=== PATIENT | female | born 1995 | race Caucasian/White ===

== ENCOUNTER → 2016-10-27 | Outpatient (CLI) | payer OTHER ==
--- NOTE | 2016-10-28 09:47 | EEG ---
DATE OF SERVICE: 10/27/2016 INDICATIONS FOR EXAMINATION: This patient is a 21-year-old female with history of seizure disorder since age 15. Patient with breakthrough seizure yesterday evening. Patient also with history of bipolar depression and fibromyalgia. AGE: 21Y EEG FINDINGS: A routine 21-channel, awake digital EEG recording was accomplished utilizing the 10 to 20 international system with bipolar and referential montages. The background activity in the most alert resting state consists of a low to medium amplitude, fairly well-developed and well-sustained 5 to 6 Hz activity over the posterior head regions. This posterior rhythm attenuates to eye opening. There is a small amount of low amplitude 18 to 20 Hz beta activity seen maximally over the anterior head regions. Muscle and movement artifact was observed on a few occasions during the tracing. Hyperventilation failed to add any additional information to the tracing. No further activation was noted. Photic stimulation at flash frequencies of 2 to 30 Hz produced a good symmetrical occipital driving response. No epileptiform discharges were seen. IMPRESSION: This EEG is moderately abnormal in a diffuse fashion due to slowing of the EEG background. The EEG failed to reveal any focal, lateralized or epileptiform abnormalities. Clinical correlation is recommended.
== END | disposition home or self-care (01) ==
LOC: NEUROMAIN 12:52
PROVIDERS: ATTEND Family Medicine
DX: R94.01 Abnormal electroencephalogram [EEG] (principal); G40.909 Epilepsy, unspecified, not intractable, without status epilepticus; F31.9 Bipolar disorder, unspecified; M79.7 Fibromyalgia
CPT/HCPCS: 95816

== ENCOUNTER → 2017-03-03 | Outpatient (CLI) | payer OTHER ==
[~2017-03-03] MED LIST: ATROPINE SULFATE 0.1 MG/ML 10ML SYRINGE ONE; DOBUTamine DRIP for NUC MED 500 MG in DEXTROSE/WATER 1 250ML.BAG IV ONE; METOPROLOL TARTRATE 5 MG/5 ML VIAL IVP ONE
--- NOTE | 2017-03-03 10:27 | ECHOS ---
DATE OF SERVICE: 03/03/2017 AGE: 21Y SEX: F HT: 61" WT: 223 lbs. Protocol Travis: Others: Dobutamine Stress Echo Stage: 4 Dur. of Exercise: 12:40 *Heart Rate Blood Pressure *Rest: 69 Rest: 166/55 * *Max. Achieved: 160 Maximum BP: 197/54 85% PMHR: 167 100% PMHR: 197 *METS: - INDICATIONS: Chest pain. MEDICATIONS: - Mrs. Key is a 21-year-old female being evaluated for symptoms of chest pain and shortness of breath. Baseline EKG showed sinus rhythm with normal NH interval and QRS duration. Blood pressure at rest is 166/55, pulse rate of 69. A standard dose of dobutamine was initiated and titrated to 40 mcg; 1 mg of Atropine was given. Patient achieved a maximum heart rate of 160, which is about 80% of the predicted heart rate. Patient did not experience any chest pain. ECHO DATA: Baseline echo images show normal wall motion and thickening. Exercise echo images showed augmentation of the wall motion and thickening in all the segments. FINAL IMPRESSION: 1. Negative stress test at about 80% of the predicted heart rate. This is a dobutamine stress echo. 2. Negative dobutamine stress at 80% of the predicted heart rate. The study is suboptimal in that patient did not achieve 85% of precipitate heart rate. 3. Patient did not experience any chest pain.
== END ==
LOC: RADNMMAIN 08:33
PROVIDERS: ATTEND Family Medicine
DX: R07.9 Chest pain, unspecified (principal)
CPT/HCPCS: 93017; 93350; J1250

== ENCOUNTER 2017-09-02 19:38 | Emergency (ER) | payer OTHER ==
[2017-09-02 20:01] VITALS: RESP 18
[2017-09-02] MEDS ORDERED: SODIUM CHLORIDE 0.9% 1,000 ML IV STA (20:15)
[2017-09-02] MEDS ORDERED: ONDANSETRON 4 MG/2 ML VIAL IVP STA (20:15)
[2017-09-02] MEDS ORDERED: HYDROmorphone 1 MG/ML 1 ML SYRINGE IVP STA (20:15)
[2017-09-02 20:25] LABS: Basophils % (A) 0 %; CH 27.4; CHCM 32.5; Eosinophils # (A) 0.1 k/uL (0-0.7); Eosinophils % (A) 1 %; HCT 36.5 % (34.0-46.0); HDW 2.52; HGB 12.1 gm/dL (11.4-16.0); Luc # (Auto) 0.11; Luc % (Auto) 1; Lymphocytes # (A) 2.1 k/uL (1.0-4.8); Lymphocytes % (A) 21 %; MCHC 33.1 g/dL (31.0-37.0); MCV 84.7 fL (80.0-100.0); Mean Platelet Volume 7.2; Monocytes # (A) 0.4 k/uL (0-1.0); Monocytes % (A) 4 %; Neutrophils # (A) 7.1 k/uL (1.3-7.7); Neutrophils % (A) 72 %; RDW 14.9 % (11.5-15.5); WBC 9.8 k/uL (3.8-10.6)
[2017-09-02] MEDS ORDERED: HYDROmorphone 0.5 MG/0.5 ML SYRINGE IVP STA (20:27)
--- NOTE | 2017-09-02 20:31 | ED ---
General Adult HPI - General Chief complaint: Abdominal Pain Stated complaint: abdominal pain Time Seen by Provider: 09/02/17 19:40 Source: patient, EMS, RN notes reviewed Mode of arrival: EMS Limitations: no limitations - History of Present Illness Initial comments: 22-year-old female presents emergency department with a chief complaint of abdominal pain that radiates to the back. She's been having nausea vomiting abdominal pain and dizziness for the past week or so. She does have a history of pancreatitis is concerned that it may have flared up. The patient states that she is not having any changes in bowel or bladder habits. She was concerned due to her continued pain and vomiting so she thought that she should be evaluated.Patient denies any recent fever, chills, shortness of breath, chest pain, back pain, numbness or tingling, dysuria or hematuria, constipation or diarrhea, headaches or visual changes, or any other current symptoms. - Related Data Home Medications Medication Instructions Recorded Confirmed Zolpidem [Ambien] 10 mg PO HS PRN 06/08/14 09/02/17 Ondansetron [Zofran] 4 mg PO Q8HR PRN 09/22/15 09/02/17 Albuterol Sulfate [Proair Hfa] 2 puff INHALATION RT-Q6H PRN 11/09/15 09/02/17 Cyproheptadine HCl [Periactin] 4 mg PO DAILY 02/29/16 09/02/17 Dicyclomine HCl [Bentyl] 20 mg PO QID 02/29/16 09/02/17 Ondansetron [Zofran ODT] 8 mg PO BID PRN 02/29/16 09/02/17 Naproxen 500 mg PO Q12H PRN 09/02/17 09/02/17 Pregabalin [Lyrica] 75 mg PO TID 09/02/17 09/02/17 tiZANidine [Zanaflex] 3 mg PO Q8HR PRN 09/02/17 09/02/17 Allergies Allergy/AdvReac Type Severity Reaction Status Date / Time Pertussis Vaccines Allergy Rash/Hives Verified 09/02/17 20:01 Review of Systems ROS Statement: Those systems with pertinent positive or pertinent negative responses have been documented in the HPI. ROS Other: All systems not noted in ROS Statement are negative. Past Medical History Past Medical History: Eye Disorder, Fibromyalgia, GERD/Reflux, Osteoarthritis ( OA), Pneumonia, Seizure Disorder Additional Past Medical History / Comment(s): irregular menstrual cycles, epilepsy , insomnia, restless leg syndrome, chronic knee and back pain, migraines, resolved pneumonia in 2014 History of Any Multi-Drug Resistant Organisms: None Reported Past Surgical History: Cholecystectomy, Orthopedic Surgery Additional Past Surgical History / Comment(s): SEVERAL SCOPES ON RT KNEE, EGD Past Anesthesia/Blood Transfusion Reactions: No Reported Reaction Past Psychological History: Bipolar, Depression Smoking Status: Current some day smoker Past Alcohol Use History: Rare Past Drug Use History: None Reported - Past Family History Mother Family Medical History: Hypertension Father History Unknown: Yes Family Medical History: Coronary Artery Disease (CAD) Additional Family Medical History / Comment(s): PT STATES FATHER WHEN SHE WAS VERY LITTLE- DOES NOT KNOW WHY HE Sister(s) Family Medical History: No Reported History General Exam - General Exam Comments Initial Comments: General: The patient is awake and alert, in no distress, and does not appear acutely ill. Eye: Pupils are equal, round and reactive to light, extra-ocular movements are intact; there is normal conjunctiva bilaterally. No signs of icterus. Ears, nose, mouth and throat: There are moist mucous membranes and no oral lesions. Neck: The neck is supple, there is no tenderness. Cardiovascular: There is a regular rate and rhythm. No murmur, rub or gallop is appreciated. Respiratory: Lungs are clear to auscultation, respirations are non-labored, breath sounds are equal. No wheezes, stridor, rales, or rhonchi. Gastrointestinal: Soft, non-distended, mild epigastric tenderness of the abdomen without masses or organomegaly noted. There is no rebound or guarding present. No CVA tenderness. Bowel sounds are unremarkable. Back: There is no tenderness to palpation in the midline. There is no obvious deformity. No rashes noted. Musculoskeletal: Normal ROM, no tenderness, There is no pedal edema. There is no calf tenderness or swelling. Sensation intact. Pulses equal bilaterally 2+. Neurological: CN II-XII intact, There are no obvious motor or sensory deficits. Coordination appears grossly intact. Speech is normal. Skin: Skin is warm and dry and no rashes or lesions are noted. Psychiatric: Cooperative, appropriate mood & affect, normal judgment. Limitations: no limitations Course Vital Signs 09/02/17 09/02/17 19:44 20:43 Temperature 98.5 F Pulse Rate 74 75 Respiratory 18 18 Rate Blood Pressure 115/59 104/55 O2 Sat by Pulse 97 97 Oximetry Medical Decision Making - Medical Decision Making 22-year-old female presents to emergency Department chief complaint of epigastric abdominal pain. Patient does have a history of pancreatitis. This time patient's lab work and imaging has been reviewed. This tenderness does not appear in acute emergent cause of patient's pain. We did discuss other etiologies to follow-up return parameters all questions. Patient stated that she understood and she is in agreement this plan. All questions have been answered. She'll be discharged. - Lab Data Result diagrams: 09/02/17 20:12 09/02/17 20:12 Lab Results 09/02/17 09/02/17 09/02/17 Range/Units 20:12 20:12 20:25 WBC 9.8 (3.8-10.6) k/uL RBC 4.30 (3.80-5.40) m/uL Hgb 12.1 (11.4-16.0) gm/dL Hct 36.5 (34.0-46.0) % MCV 84.7 (80.0-100.0) fL MCH 28.0 (25.0-35.0) pg MCHC 33.1 (31.0-37.0) g/dL RDW 14.9 (11.5-15.5) % Plt Count 343 (150-450) k/uL Neutrophils % 72 % Lymphocytes % 21 % Monocytes % 4 % Eosinophils % 1 % Basophils % 0 % Neutrophils # 7.1 (1.3-7.7) k/uL Lymphocytes # 2.1 (1.0-4.8) k/uL Monocytes # 0.4 (0-1.0) k/uL Eosinophils # 0.1 (0-0.7) k/uL Basophils # 0.0 (0-0.2) k/uL Sodium 138 (137-145) mmol/L Potassium 3.9 (3.5-5.1) mmol/L Chloride 108 H (98-107) mmol/L Carbon Dioxide 19 L (22-30) mmol/L Anion Gap 11 mmol/L BUN 14 (7-17) mg/dL Creatinine 0.70 (0.52-1.04) mg/dL Est GFR (MDRD) Af Amer >60 (>60 ml/min/1.73 sqM) Est GFR (MDRD) Non-Af >60 (>60 ml/min/1.73 sqM) Glucose 121 H (74-99) mg/dL Calcium 9.0 (8.4-10.2) mg/dL Total Bilirubin 0.4 (0.2-1.3) mg/dL AST 22 (14-36) U/L ALT 27 (9-52) U/L Alkaline Phosphatase 81 (38-126) U/L Total Protein 6.8 (6.3-8.2) g/dL Albumin 3.9 (3.5-5.0) g/dL Amylase <30 L (30-110) U/L Lipase 39 (23-300) U/L Urine Color Urine Appearance (Clear) Urine pH (5.0-8.0) Ur Specific [place] (1.001-1.035) Urine Protein (Negative) Urine Glucose (UA) (Negative) Urine Ketones (Negative) Urine Blood (Negative) Urine Nitrite (Negative) Urine Bilirubin (Negative) Urine Urobilinogen (<2.0) mg/dL Ur Leukocyte Esterase (Negative) Urine HCG, Qual Not Detected (Not Detectd) 09/02/17 Range/Units 20:25 WBC (3.8-10.6) k/uL RBC (3.80-5.40) m/uL Hgb (11.4-16.0) gm/dL Hct (34.0-46.0) % MCV (80.0-100.0) fL MCH (25.0-35.0) pg MCHC (31.0-37.0) g/dL RDW (11.5-15.5) % Plt Count (150-450) k/uL Neutrophils % % Lymphocytes % % Monocytes % % Eosinophils % % Basophils % % Neutrophils # (1.3-7.7) k/uL Lymphocytes # (1.0-4.8) k/uL Monocytes # (0-1.0) k/uL Eosinophils # (0-0.7) k/uL Basophils # (0-0.2) k/uL Sodium (137-145) mmol/L Potassium (3.5-5.1) mmol/L Chloride (98-107) mmol/L Carbon Dioxide (22-30) mmol/L Anion Gap mmol/L BUN (7-17) mg/dL Creatinine (0.52-1.04) mg/dL Est GFR (MDRD) Af Amer (>60 ml/min/1.73 sqM) Est GFR (MDRD) Non-Af (>60 ml/min/1.73 sqM) Glucose (74-99) mg/dL Calcium (8.4-10.2) mg/dL Total Bilirubin (0.2-1.3) mg/dL AST (14-36) U/L ALT (9-52) U/L Alkaline Phosphatase (38-126) U/L Total Protein (6.3-8.2) g/dL Albumin (3.5-5.0) g/dL Amylase (30-110) U/L Lipase (23-300) U/L Urine Color Yellow Urine Appearance Clear (Clear) Urine pH 5.5 (5.0-8.0) Ur Specific [place] 1.023 (1.001-1.035) Urine Protein Trace H (Negative) Urine Glucose (UA) Negative (Negative) Urine Ketones Negative (Negative) Urine Blood Negative (Negative) Urine Nitrite Negative (Negative) Urine Bilirubin Negative (Negative) Urine Urobilinogen <2.0 (<2.0) mg/dL Ur Leukocyte Esterase Negative (Negative) Urine HCG, Qual (Not Detectd) - Radiology Data Radiology results: report reviewed, image reviewed Disposition Clinical Impression: Abdominal pain Disposition: HOME SELF-CARE Condition: Stable Instructions: Abdominal Pain (ED) Additional Instructions: Please use medication as discussed. Please follow up with family doctor if symptoms have not improved over the next two days. Please return to the emergency room if your symptoms increase or worsen or for any other concerns. Referrals: Chio Lopez MD [Primary Care Provider] - 1-2 days Time of Disposition: 22:31
[2017-09-02 20:35] LABS: Appearance,Urine Clear (Clear); Bilirubin,Urine Negative (Negative); Glucose,Urine (UA) Negative (Negative); Ketones,Urine Negative (Negative); Leukocyte Esterase,Urine Negative (Negative); Nitrite,Urine Negative (Negative); PH, Urine 5.5 (5.0-8.0); Protein,Urine Trace (Negative); Specific Gravity,Urine 1.023 (1.001-1.035); UA Billing (MACRO vs. MICRO) CHEM; Urobilinogen,Urine <2.0 mg/dL (<2.0)
[2017-09-02 20:36] LABS: ALT 27 U/L (9-52); AST 22 U/L (14-36); Alkaline Phosphatase 81 U/L (38-126); Amylase <30 U/L (30-110); Anion Gap 11 mmol/L; Blood Urea Nitrogen 14 mg/dL (7-17); Carbon Dioxide 19 mmol/L (22-30); Chloride 108 mmol/L (98-107); Glucose 121 mg/dL (74-99); Non-African American GFR(MDRD) >60 (>60 ml/min/1.73 sqM); Potassium 3.9 mmol/L (3.5-5.1); Sodium 138 mmol/L (137-145); Total Bilirubin 0.4 mg/dL (0.2-1.3); Total Protein 6.8 g/dL (6.3-8.2)
[2017-09-02] MEDS ORDERED: RX INFO: IV CONTRAST WAS GIVEN 1 EACH MISC MISCELLANE PRN (21:13)
--- NOTE | 2017-09-02 21:17 | XR ---
EXAMINATION TYPE: XR abdomen 2V DATE OF EXAM: 09/02/2017 9:03 PM CLINICAL HISTORY: Nausea and vomiting TECHNIQUE: Upright and supine abdominal radiographs were obtained. COMPARISON: None. FINDINGS: Scattered gas is seen in non-distended small bowel loops. Gas and fecal material is seen in non-distended colon. There is no visceromegaly, pneumoperitoneum, or abnormal calcification apprecia kenneth. The lung bases are clear and the osseous structures are intact. IMPRESSION: Nonobstructive bowel gas pattern.
--- NOTE | 2017-09-02 22:00 | CT ---
EXAMINATION TYPE: CT abdomen pelvis w con DATE OF EXAM: 09/02/2017 HISTORY: Dizziness/abdominal pain mid abdomen CT DLP: 1887.80mGycm Automated Exposure Control for Dose Reduction was Utilized. CONTRAST: CT scan of the abdomen and pelvis is performed with IV Contrast, patient injected with 100 mL of Omni paque 300. Lack of oral contrast limits evaluation of the bowel. COMPARISON: 02/29/2016 FINDINGS: LUNG BASES: Minimal dependent bibasilar subsegmental atelectasis is seen. LIVER/GB: No significant abnormality is appreciated. Cholecystectomy clips reside within the gallblad karen fossa. PANCREAS: No significant abnormality is seen. No ductal dilatation. SPLEEN: No significant abnormality is seen. No evidence of splenomegaly. ADRENALS: No significant abnormality is seen. No nodules are seen. KIDNEYS: No significant abnormality is seen. No hydronephrosis. BOWEL: What appears to be the appendix is air-filled and within normal limits of size. No secondary s igns of appendicitis are seen. No right lower quadrant fat stranding, localized fluid or lymph nodes are noted. No thickening of the terminal ileum. UTERUS/ADNEXA: 2 adjacent fluid attenuated right adnexal cyst measuring 3.2 cm and 2.8 cm are seen. S cant amount of adjacent paraovarian free fluid is noted. Low attenuation of the central endometrium l ikely relates to the phase of menses. Left ovary is not visualized.. LYMPH NODES: No greater than 1cm abdominal or pelvic lymph nodes are appreciated. OSSEOUS STRUCTURES: No significant abnormality is seen. IMPRESSION: 1. No evidence of acute appendicitis. 2. Right adnexal cystic lesions, probable simple ovarian cysts. If there is further clinical concern or right lower quadrant pain pelvic ultrasound could be performed for further evaluation.
[2017-09-02 22:54] VITALS: BP 101/57; PULSE 100; TEMP 98
== END 2017-09-02 22:54 | disposition home or self-care (01) ==
LOC: EC 19:38
DX: R10.13 Epigastric pain (principal); R11.2 Nausea with vomiting, unspecified; R42 Dizziness and giddiness; M79.7 Fibromyalgia; K21.9 Gastro-esophageal reflux disease without esophagitis; M19.90 Unspecified osteoarthritis, unspecified site; G40.909 Epilepsy, unspecified, not intractable, without status epilepticus; F31.9 Bipolar disorder, unspecified; F17.200 Nicotine dependence, unspecified, uncomplicated; Z79.1 Long term (current) use of non-steroidal anti-inflammatories (NSAID); Z79.899 Other long term (current) drug therapy; Z88.7 Allergy status to serum and vaccine; Z90.49 Acquired absence of other specified parts of digestive tract
CPT/HCPCS: 36415; 80053; 82150; 83690; 85025; 81003; 81025; 74020; 74177; 99285; 96374; 96375; 96361; J2405; Q9967; J1170

== ENCOUNTER 2019-06-18 17:01 | Emergency (ER) | payer OTHER ==
[2019-06-18 17:13] VITALS: RESP 18
[2019-06-18] MEDS ORDERED: KETOROLAC 30 MG/ML 1 ML VIAL IVP STA (17:21)
[2019-06-18] MEDS ORDERED: SODIUM CHLORIDE 0.9% 1,000 ML IV STA (17:21)
[2019-06-18] MEDS ORDERED: ONDANSETRON 4 MG/2 ML VIAL IVP STA (17:21)
--- NOTE | 2019-06-18 17:29 | ED ---
General Adult HPI - General Chief complaint: Abdominal Pain Stated complaint: abd pain, nause Time Seen by Provider: 06/18/19 17:02 Source: patient, EMS, RN notes reviewed Mode of arrival: EMS Limitations: no limitations - History of Present Illness Initial comments: 23-year-old female with a past medical history of fibromyalgia, GERD epilepsy, insomnia, pancreatitis 8 episodes presents to the emergency room for a chief complaint of epigastric pain. States this started around 9 AM this morning. States she has been nauseous but has not vomited. States this feels exactly like the greatest in the past. Patient has a history of cholecystectomy. Denies any lower abdominal pain. Denies any diarrhea. Patient is passing flatus normally. Denies any alleviating or aggravating factors. Patient has no other complaints at this time including shortness of breath, chest pain, vomiting, headache, or visual changes. - Related Data Home Medications Medication Instructions Recorded Confirmed Cyproheptadine HCl [Periactin] 4 mg PO DAILY PRN 02/29/16 06/18/19 Naproxen 500 mg PO BID PRN 09/02/17 06/18/19 Gabapentin 1,200 mg PO TID 09/27/17 06/18/19 ARIPiprazole [Abilify] 10 mg PO HS 06/18/19 06/18/19 Albuterol Inhaler [Ventolin Hfa 1 - 2 puff INHALATION RT-Q6H PRN 06/18/19 06/18/19 Inhaler] Baclofen 10 mg PO TID 06/18/19 06/18/19 Hyoscyamine Sulfate [Levsin] 0.125 mg PO DAILY PRN 06/18/19 06/18/19 Omeprazole 20 mg PO DAILY 06/18/19 06/18/19 Ondansetron HCl [Zofran] 4 mg PO Q8H PRN 06/18/19 06/18/19 Sertraline HCl [Zoloft] 25 mg PO DAILY 06/18/19 06/18/19 lamoTRIgine [LaMICtal] 200 mg PO DAILY 06/18/19 06/18/19 Allergies Allergy/AdvReac Type Severity Reaction Status Date / Time Pertussis Vaccines Allergy Rash/Hives Verified 09/27/17 18:20 Review of Systems ROS Statement: Those systems with pertinent positive or pertinent negative responses have been documented in the HPI. ROS Other: All systems not noted in ROS Statement are negative. Past Medical History Past Medical History: Eye Disorder, Fibromyalgia, GERD/Reflux, Osteoarthritis (OA), Pneumonia, Seizure Disorder Additional Past Medical History / Comment(s): irregular menstrual cycles, epilepsy , insomnia, restless leg syndrome, chronic knee and back pain, migraines, resolved pneumonia in 2014 History of Any Multi-Drug Resistant Organisms: None Reported Past Surgical History: Cholecystectomy, Orthopedic Surgery Additional Past Surgical History / Comment(s): SEVERAL SCOPES ON RT KNEE, EGD 09/21/15 Past Anesthesia/Blood Transfusion Reactions: No Reported Reaction Past Psychological History: Bipolar, Depression Smoking Status: Current some day smoker Past Alcohol Use History: Occasional Past Drug Use History: None Reported - Past Family History Mother Family Medical History: Hypertension Father History Unknown: Yes Family Medical History: Coronary Artery Disease (CAD) Additional Family Medical History / Comment(s): PT STATES FATHER WHEN SHE WAS VERY LITTLE- DOES NOT KNOW WHY HE Sister(s) Family Medical History: No Reported History General Exam Limitations: no limitations Course Vital Signs 06/18/19 06/18/19 17:09 19:21 Temperature 98.0 F Pulse Rate 105 H 110 H Respiratory 18 18 Rate Blood Pressure 139/95 135/90 O2 Sat by Pulse 99 98 Oximetry Medical Decision Making - Medical Decision Making History obtained from patient. Physical exam is documented and pertinent for epigastric tenderness without guarding or rebound and positive bowel sounds in all 4 quadrants. Vitals are stable however recorded vitals do represent tachycardia. However when I'm in the room patient's heart rate is anywhere between 80 and 85. CBC and CMP are unremarkable. Urine is negative for infection or hCG. XR KUB shows no acute radiographic process. No pneumoperitoneum appreciated. Given normal labs, no lower abdominal pain, and epigastric tenderness symptoms are consistent with acute gastritis. Patient does have a history of gastritis and frequently takes naproxen for fibromyalgia. Patient does take omeprazole. However no evidence for pneumoperitoneum so at this point patient can follow up outpatient. We did improve her pain here in the emergency department. She has an appointment with GI on the but will call to try to make this earlier. She'll return if she has any worsening s ymptoms including lower abdominal pain, fevers, or any worsening of the upper abdominal pain. - Lab Data Result diagrams: 06/18/19 17:40 06/18/19 17:40 Lab Results 06/18/19 06/18/19 06/18/19 Range/Units 17:20 17:20 17:40 WBC (3.8-10.6) k/uL RBC (3.80-5.40) m/uL Hgb (11.4-16.0) gm/dL Hct (34.0-46.0) % MCV (80.0-100.0) fL MCH (25.0-35.0) pg MCHC (31.0-37.0) g/dL RDW (11.5-15.5) % Plt Count (150-450) k/uL Neutrophils % % Lymphocytes % % Monocytes % % Eosinophils % % Basophils % % Neutrophils # (1.3-7.7) k/uL Lymphocytes # (1.0-4.8) k/uL Monocytes # (0-1.0) k/uL Eosinophils # (0-0.7) k/uL Basophils # (0-0.2) k/uL Sodium 140 (137-145) mmol/L Potassium 4.5 (3.5-5.1) mmol/L Chloride 105 (98-107) mmol/L Carbon Dioxide 25 (22-30) mmol/L Anion Gap 10 mmol/L BUN 12 (7-17) mg/dL Creatinine 0.78 (0.52-1.04) mg/dL Est GFR (CKD-EPI)AfAm >90 (>60 ml/min/1.73 sqM) Est GFR (CKD-EPI)NonAf >90 (>60 ml/min/1.73 sqM) Glucose 88 (74-99) mg/dL Calcium 9.5 (8.4-10.2) mg/dL Total Bilirubin 0.3 (0.2-1.3) mg/dL AST 21 (14-36) U/L ALT 18 (9-52) U/L Alkaline Phosphatase 99 (38-126) U/L Total Protein 7.4 (6.3-8.2) g/dL Albumin 4.2 (3.5-5.0) g/dL Amylase 46 (30-110) U/L Lipase 43 (23-300) U/L Urine Color Yellow Urine Appearance Clear (Clear) Urine pH 6.5 (5.0-8.0) Ur Specific [place] 1.027 (1.001-1.035) Urine Protein Trace H (Negative) Urine Glucose (UA) Negative (Negative) Urine Ketones Negative (Negative) Urine Blood Negative (Negative) Urine Nitrite Negative (Negative) Urine Bilirubin Negative (Negative) Urine Urobilinogen 3.0 (<2.0) mg/dL Ur Leukocyte Esterase Negative (Negative) Urine HCG, Qual Not Detected (Not Detectd) 06/18/19 Range/Units 17:40 WBC 10.0 (3.8-10.6) k/uL RBC 4.31 (3.80-5.40) m/uL Hgb 11.9 (11.4-16.0) gm/dL Hct 36.0 (34.0-46.0) % MCV 83.4 (80.0-100.0) fL MCH 27.6 (25.0-35.0) pg MCHC 33.1 (31.0-37.0) g/dL RDW 15.0 (11.5-15.5) % Plt Count 368 (150-450) k/uL Neutrophils % 72 % Lymphocytes % 22 % Monocytes % 4 % Eosinophils % 1 % Basophils % 0 % Neutrophils # 7.2 (1.3-7.7) k/uL Lymphocytes # 2.2 (1.0-4.8) k/uL Monocytes # 0.4 (0-1.0) k/uL Eosinophils # 0.1 (0-0.7) k/uL Basophils # 0.0 (0-0.2) k/uL Sodium (137-145) mmol/L Potassium (3.5-5.1) mmol/L Chloride (98-107) mmol/L Carbon Dioxide (22-30) mmol/L Anion Gap mmol/L BUN (7-17) mg/dL Creatinine (0.52-1.04) mg/dL Est GFR (CKD-EPI)AfAm (>60 ml/min/1.73 sqM) Est GFR (CKD-EPI)NonAf (>60 ml/min/1.73 sqM) Glucose (74-99) mg/dL Calcium (8.4-10.2) mg/dL Total Bilirubin (0.2-1.3) mg/dL AST (14-36) U/L ALT (9-52) U/L Alkaline Phosphatase (38-126) U/L Total Protein (6.3-8.2) g/dL Albumin (3.5-5.0) g/dL Amylase (30-110) U/L Lipase (23-300) U/L Urine Color Urine Appearance (Clear) Urine pH (5.0-8.0) Ur Specific [place] (1.001-1.035) Urine Protein (Negative) Urine Glucose (UA) (Negative) Urine Ketones (Negative) Urine Blood (Negative) Urine Nitrite (Negative) Urine Bilirubin (Negative) Urine Urobilinogen (<2.0) mg/dL Ur Leukocyte Esterase (Negative) Urine HCG, Qual (Not Detectd) Disposition Clinical Impression: Acute gastritis Disposition: HOME SELF-CARE Condition: Good Instructions (If sedation given, give patient instructions): Gastritis (ED) Additional Instructions: Continue to take your omeprazole. Do not take NSAIDs until your GI follow-up. Follow up with GI in 1-2 days. Return if you have any worsening symptoms. Is patient prescribed a controlled substance at d/c from ED?: No Referrals: Nikia May MD [Primary Care Provider] - 1-2 days Claudia Almazan MD [STAFF PHYSICIAN] - 1-2 days Time of Disposition: 19:44
[2019-06-18 17:33] LABS: Appearance,Urine Clear (Clear); Bilirubin,Urine Negative (Negative); Blood,Urine Negative (Negative); Color,Urine Yellow; Glucose,Urine (UA) Negative (Negative); Ketones,Urine Negative (Negative); Leukocyte Esterase,Urine Negative (Negative); Nitrite,Urine Negative (Negative); PH, Urine 6.5 (5.0-8.0); Protein,Urine Trace (Negative); Specific Gravity,Urine 1.027 (1.001-1.035)
[2019-06-18 17:53] LABS: Basophils % (A) 0 %; Eosinophils # (A) 0.1 k/uL (0-0.7); Eosinophils % (A) 1 %; HGB 11.9 gm/dL (11.4-16.0); Lymphocytes # (A) 2.2 k/uL (1.0-4.8); Lymphocytes % (A) 22 %; MCH 27.6 pg (25.0-35.0); MCHC 33.1 g/dL (31.0-37.0); MCV 83.4 fL (80.0-100.0); Mean Platelet Volume 6.9; Monocytes # (A) 0.4 k/uL (0-1.0); Monocytes % (A) 4 %; Neutrophils # (A) 7.2 k/uL (1.3-7.7); Neutrophils % (A) 72 %; Platelet Count 368 k/uL (150-450); RBC 4.31 m/uL (3.80-5.40)
[2019-06-18 18:28] LABS: ALT 18 U/L (9-52); AST 21 U/L (14-36); African American GFR (CKD) >90 (>60 ml/min/1.73 sqM); Albumin 4.2 g/dL (3.5-5.0); Alkaline Phosphatase 99 U/L (38-126); Amylase 46 U/L (30-110); Anion Gap 10 mmol/L; Blood Urea Nitrogen 12 mg/dL (7-17); Calcium 9.5 mg/dL (8.4-10.2); Carbon Dioxide 25 mmol/L (22-30); Chloride 105 mmol/L (98-107); Glucose 88 mg/dL (74-99); Potassium 4.5 mmol/L (3.5-5.1); Sodium 140 mmol/L (137-145); Total Bilirubin 0.3 mg/dL (0.2-1.3); Total Protein 7.4 g/dL (6.3-8.2)
[2019-06-18] MEDS ORDERED: MORPHINE SULFATE 4 MG/ML SYRINGE IVP STA (18:49)
[2019-06-18] MEDS ORDERED: MAG HYDROX/AL HYDROX/SIMETH 30 ML, HYOSCYAMINE ELIXIR 10 ML, CIMETIDINE HCL 300 MG, LID... PO STA ×4 (19:18)
[2019-06-18] MEDS ORDERED: FAMOTIDINE 20 MG/2 ML VIAL IV STA (19:18)
--- NOTE | 2019-06-18 19:36 | XR ---
EXAMINATION TYPE: XR KUB DATE OF EXAM: 06/18/2019 6:23 PM CLINICAL HISTORY: Pain TECHNIQUE: 2 upright views COMPARISON: None. FINDINGS: Scattered gas is seen in non-distended small bowel loops. Gas and fecal material is seen in non-distended colon. There is no visceromegaly, pneumoperitoneum, or abnormal calcification apprecia kenneth. The lung bases are clear and the osseous structures are intact. IMPRESSION: No acute radiographic process.
[2019-06-18 20:32] VITALS: BP 131/88; PULSE 88; TEMP 98.2
--- NOTE | 2019-06-21 01:01 | CDI ---
Dear Wil Schmidt DO: Please do addendum Physical Examination. Thank you, Brisa Becerra, Fire Safety Director. If you have any questions, please contact Rubber Factory Worker at [phone]. [facility]
== END 2019-06-18 20:35 | disposition home or self-care (01) ==
LOC: EC 17:01
DX: K29.00 Acute gastritis without bleeding (principal); Z32.02 Encounter for pregnancy test, result negative; M79.7 Fibromyalgia; K21.9 Gastro-esophageal reflux disease without esophagitis; F31.9 Bipolar disorder, unspecified; F17.200 Nicotine dependence, unspecified, uncomplicated; G40.909 Epilepsy, unspecified, not intractable, without status epilepticus; Z79.899 Other long term (current) drug therapy; Z88.7 Allergy status to serum and vaccine; Z90.49 Acquired absence of other specified parts of digestive tract
CPT/HCPCS: 99284; 96374; 96375 ×3; 96361; 36415; 80053; 82150; 83690; 85025; 81003; 81025; 74018; J2270; J2405; J1885

== ENCOUNTER 2019-06-20 17:24 | Emergency (ER) | payer OTHER ==
[2019-06-20 17:59] VITALS: RESP 18
[2019-06-20] MEDS ORDERED: SODIUM CHLORIDE 0.9% 1,000 ML IV STA (18:11)
[2019-06-20] MEDS ORDERED: FAMOTIDINE 20 MG/2 ML VIAL IV STA (18:12)
--- NOTE | 2019-06-20 18:17 | ED ---
General Adult HPI - General Chief complaint: Abdominal Pain Stated complaint: Abd pain Time Seen by Provider: 06/20/19 18:02 Source: patient, RN notes reviewed, old records reviewed Mode of arrival: EMS Limitations: no limitations - History of Present Illness Initial comments: 23-year-old female patient past history significant for chronic abdominal pain, pancreatitis, fibromyalgia presents ED chief complaint of epigastric abdominal pain accompanied by nausea. Patient was evaluated in this emergency department 2 days ago for similar symptoms. Patient does follow up with a social professionals on regular basis, has her next appointment in approximately one week. Patient states that she continues to have epigastric abdominal pain, not improved by omeprazole. Patient is status post cholecystectomy. Patient does estimate that she has had approximately 10 CAT scans in the past. Denies any other complaints. Systemic: Pt denies fatigue, fever/chills, rash. Pt denies weakness, night sweats, weight loss. Neuro: Pt denies headache, visual disturbances, syncope or pre-syncope. HEENT: Pt denies ocular discharge or irritation, otalgia, rhinorrhea, pharyngitis or notable lymphadenopathy. Cardiopulmonary: Pt denies chest pain, SOB, heart palpitations, dyspnea on exertion. Abdominal/GI: Pt denies n/v/d. : Pt denies dysuria, burning w/ urination, frequency/urgency. Denies new onset urinary or bowel incontinence. MSK: Pt denies myalgia, loss of strength or function in extremities. Neuro: Pt denies new onset weakness, paresthesias. - Related Data Home Medications Medication Instructions Recorded Confirmed Cyproheptadine HCl [Periactin] 4 mg PO DAILY PRN 02/29/16 06/20/19 Naproxen 500 mg PO BID 09/02/17 06/20/19 Gabapentin 1,200 mg PO TID 09/27/17 06/20/19 ARIPiprazole [Abilify] 10 mg PO HS 06/18/19 06/20/19 Albuterol Inhaler [Ventolin Hfa 2 puff INHALATION RT-Q6H PRN 06/18/19 06/20/19 Inhaler] Baclofen 10 mg PO TID 06/18/19 06/20/19 Hyoscyamine Sulfate [Levsin] 0.125 mg PO DAILY PRN 06/18/19 06/20/19 Omeprazole 20 mg PO DAILY 06/18/19 06/20/19 Ondansetron HCl [Zofran] 4 mg PO Q8H PRN 06/18/19 06/20/19 Sertraline HCl [Zoloft] 25 mg PO HS 06/18/19 06/20/19 lamoTRIgine [LaMICtal] 200 mg PO DAILY 06/18/19 06/20/19 Previous Rx's Medication Instructions Recorded Famotidine [Pepcid] 20 mg PO BID #20 tablet 06/20/19 Allergies Allergy/AdvReac Type Severity Reaction Status Date / Time Pertussis Vaccines Allergy Rash/Hives Verified 06/20/19 17:59 Review of Systems ROS Statement: Those systems with pertinent positive or pertinent negative responses have been documented in the HPI. ROS Other: All systems not noted in ROS Statement are negative. Past Medical History Past Medical History: Eye Disorder, Fibromyalgia, GERD/Reflux, Osteoarthritis (OA), Pneumonia, Seizure Disorder Additional Past Medical History / Comment(s): irregular menstrual cycles, epilepsy , insomnia, restless leg syndrome, chronic knee and back pain, migraines, resolved pneumonia in 2014 History of Any Multi-Drug Resistant Organisms: None Reported Past Surgical History: Cholecystectomy, Orthopedic Surgery Additional Past Surgical History / Comment(s): SEVERAL SCOPES ON RT KNEE, EGD 09/21/15 Past Anesthesia/Blood Transfusion Reactions: No Reported Reaction Past Psychological History: Bipolar, Depression Smoking Status: Current some day smoker Past Alcohol Use History: Occasional Past Drug Use History: None Reported - Past Family History Mother Family Medical History: Hypertension Father History Unknown: Yes Family Medical History: Coronary Artery Disease (CAD) Additional Family Medical History / Comment(s): PT STATES FATHER WHEN SHE WAS VERY LITTLE- DOES NOT KNOW WHY HE Sister(s) Family Medical History: No Reported History General Exam - General Exam Comments Initial Comments: Constitutional: NAD, AOX3, Pt has pleasant affect. HEENT: NC/AT, trachea midline, neck supple, no lymphadenopathy. Posterior pharynx non erythematous, without exudates. External ears appear normal, without discharge. Mucous membranes moist. Eyes PERRLA, EOM intact. There is no scleral icterus. No pallor noted. Cardiopulmonary: RRR, no murmurs, rubs or gallops, no JVD noted. Lungs CTAB in anterior and posterior perez. No peripheral edema. Abdominal exam: Abdomen soft and non-distended. Abdomen mildly tender to p alpation epigastric region, no other areas of abdominal tenderness, no guarding no JVD.. Bowel sounds active in LLQ. No hepatosplenomegaly. No ecchymosis Neuro: CN II-XII grossly intact. No nuchal rigidity. No raccon eyes, no ni sign, no hemotympanum. No cervical spinal tenderness. MSK: No posterior calf tenderness bilaterally, homans sign negative bilaterally. Posterior tibialis and radial pulse +2 bilaterally. Sensation intact in upper and lower extremities. Full active ROM in upper and lower extremities, 5/5 stregnth. Limitations: no limitations Course Vital Signs 06/20/19 17:52 Temperature 99 F Pulse Rate 102 H Respiratory 18 Rate Blood Pressure 121/75 O2 Sat by Pulse 98 Oximetry Medical Decision Making - Medical Decision Making 23-year-old female patient past history significant for chronic abdominal pain, pancreatitis, fibromyalgia presents ED chief complaint of epigastric abdominal pain accompanied by nausea. Patient was evaluated in this emergency department 2 days ago for similar symptoms. Patient does follow up with a social professionals on regular basis, has her next appointment in approximately one week. Patient states that she continues to have epigastric abdominal pain, not improved by omeprazole. Patient is status post cholecystectomy. Patient does estimate that she has had approximately 10 CAT scans in the past. Denies any other complaints. Patient vital signs stable, afebrile. Physical exam d isplayed mild gastric abdominal tenderness, no other acute pathology identified. No guarding or rigidity no ecchymoses. Lungs investigations revealed mild cytosis otherwise non-impressive. Lactic acid within normal limits, lipase within normal limits. KUB did not display acute pathology. Patient administered Pepcid. Patient discharged with Pepcid prescription, follow-up with social professionals as scheduled next week. Return precautions discussed. Case discussed with Dr. Rey. - Lab Data Result diagrams: 06/20/19 18:00 06/20/19 18:00 Lab Results 06/20/19 06/20/19 06/20/19 Range/Units 18:00 18:00 18:00 WBC 11.4 H (3.8-10.6) k/uL RBC 4.31 (3.80-5.40) m/uL Hgb 11.7 (11.4-16.0) gm/dL Hct 35.9 (34.0-46.0) % MCV 83.2 (80.0-100.0) fL MCH 27.1 (25.0-35.0) pg MCHC 32.5 (31.0-37.0) g/dL RDW 15.1 (11.5-15.5) % Plt Count 384 (150-450) k/uL Neutrophils % 74 % Lymphocytes % 19 % Monocytes % 4 % Eosinophils % 1 % Basophils % 0 % Neutrophils # 8.5 H (1.3-7.7) k/uL Lymphocytes # 2.2 (1.0-4.8) k/uL Monocytes # 0.4 (0-1.0) k/uL Eosinophils # 0.1 (0-0.7) k/uL Basophils # 0.0 (0-0.2) k/uL Sodium 138 (137-145) mmol/L Potassium 4.5 (3.5-5.1) mmol/L Chloride 104 (98-107) mmol/L Carbon Dioxide 23 (22-30) mmol/L Anion Gap 11 mmol/L BUN 11 (7-17) mg/dL Creatinine 0.80 (0.52-1.04) mg/dL Est GFR (CKD-EPI)AfAm >90 (>60 ml/min/1.73 sqM) Est GFR (CKD-EPI)NonAf >90 (>60 ml/min/1.73 sqM) Glucose 88 (74-99) mg/dL Plasma Lactic Acid Claudy (0.7-2.0) mmol/L Calcium 9.9 (8.4-10.2) mg/dL Total Bilirubin 0.3 (0.2-1.3) mg/dL AST 24 (14-36) U/L ALT 29 (9-52) U/L Alkaline Phosphatase 91 (38-126) U/L Total Protein 7.5 (6.3-8.2) g/dL Albumin 4.4 (3.5-5.0) g/dL Lipase 34 (23-300) U/L Urine Color Urine Appearance (Clear) Urine pH (5.0-8.0) Ur Specific [place] (1.001-1.035) Urine Protein (Negative) Urine Glucose (UA) (Negative) Urine Ketones (Negative) Urine Blood (Negative) Urine Nitrite (Negative) Urine Bilirubin (Negative) Urine Urobilinogen (<2.0) mg/dL Ur Leukocyte Esterase (Negative) Urine HCG, Qual Not Detected (Not Detectd) 06/20/19 06/20/19 Range/Units 18:00 18:00 WBC (3.8-10.6) k/uL RBC (3.80-5.40) m/uL Hgb (11.4-16.0) gm/dL Hct (34.0-46.0) % MCV (80.0-100.0) fL MCH (25.0-35.0) pg MCHC (31.0-37.0) g/dL RDW (11.5-15.5) % Plt Count (150-450) k/uL Neutrophils % % Lymphocytes % % Monocytes % % Eosinophils % % Basophils % % Neutrophils # (1.3-7.7) k/uL Lymphocytes # (1.0-4.8) k/uL Monocytes # (0-1.0) k/uL Eosinophils # (0-0.7) k/uL Basophils # (0-0.2) k/uL Sodium (137-145) mmol/L Potassium (3.5-5.1) mmol/L Chloride (98-107) mmol/L Carbon Dioxide (22-30) mmol/L Anion Gap mmol/L BUN (7-17) mg/dL Creatinine (0.52-1.04) mg/dL Est GFR (CKD-EPI)AfAm (>60 ml/min/1.73 sqM) Est GFR (CKD-EPI)NonAf (>60 ml/min/1.73 sqM) Glucose (74-99) mg/dL Plasma Lactic Acid Claudy 0.9 (0.7-2.0) mmol/L Calcium (8.4-10.2) mg/dL Total Bilirubin (0.2-1.3) mg/dL AST (14-36) U/L ALT (9-52) U/L Alkaline Phosphatase (38-126) U/L Total Protein (6.3-8.2) g/dL Albumin (3.5-5.0) g/dL Lipase (23-300) U/L Urine Color Yellow Urine Appearance Clear (Clear) Urine pH 6.0 (5.0-8.0) Ur Specific [place] 1.029 (1.001-1.035) Urine Protein Trace H (Negative) Urine Glucose (UA) Negative (Negative) Urine Ketones Trace H (Negative) Urine Blood Negative (Negative) Urine Nitrite Negative (Negative) Urine Bilirubin Negative (Negative) Urine Urobilinogen <2.0 (<2.0) mg/dL Ur Leukocyte Esterase Negative (Negative) Urine HCG, Qual (Not Detectd) Disposition Clinical Impression: Epigastric pain Disposition: HOME SELF-CARE Condition: Stable Instructions (If sedation given, give patient instructions): Abdominal Pain (ED) Additional Instructions: Patient to adhere to previously discussed treatment plan and will take medication(s) as directed. Patient to follow up with PCP in 1-2 days. Patient to return to ED if symptoms do not improve. Follow-up with social professionals next week. Take medication as prescribed. Return here if condition worsens. Prescriptions: Famotidine [Pepcid] 20 mg PO BID #20 tablet Is patient prescribed a controlled substance at d/c from ED?: No Referrals: Nikia May MD [Primary Care Provider] - 1-2 days
[2019-06-20 18:29] LABS: Basophils % (A) 0 %; Eosinophils # (A) 0.1 k/uL (0-0.7); Eosinophils % (A) 1 %; HCT 35.9 % (34.0-46.0); HGB 11.7 gm/dL (11.4-16.0); Lymphocytes # (A) 2.2 k/uL (1.0-4.8); Lymphocytes % (A) 19 %; MCH 27.1 pg (25.0-35.0); MCHC 32.5 g/dL (31.0-37.0); MCV 83.2 fL (80.0-100.0); Monocytes # (A) 0.4 k/uL (0-1.0); Monocytes % (A) 4 %; Neutrophils # (A) 8.5 k/uL (1.3-7.7); Neutrophils % (A) 74 %; Platelet Count 384 k/uL (150-450); RBC 4.31 m/uL (3.80-5.40); RDW 15.1 % (11.5-15.5); WBC 11.4 k/uL (3.8-10.6)
[2019-06-20 18:33] LABS: Appearance,Urine Clear (Clear); Bilirubin,Urine Negative (Negative); Blood,Urine Negative (Negative); Color,Urine Yellow; Glucose,Urine (UA) Negative (Negative); Ketones,Urine Trace (Negative); Leukocyte Esterase,Urine Negative (Negative); Nitrite,Urine Negative (Negative); Protein,Urine Trace (Negative); Specific Gravity,Urine 1.029 (1.001-1.035); Urobilinogen,Urine <2.0 mg/dL (<2.0)
[2019-06-20 18:39] LABS: ALT 29 U/L (9-52); AST 24 U/L (14-36); African American GFR (CKD) >90 (>60 ml/min/1.73 sqM); Albumin 4.4 g/dL (3.5-5.0); Alkaline Phosphatase 91 U/L (38-126); Anion Gap 11 mmol/L; Blood Urea Nitrogen 11 mg/dL (7-17); Calcium 9.9 mg/dL (8.4-10.2); Carbon Dioxide 23 mmol/L (22-30); Chloride 104 mmol/L (98-107); Glucose 88 mg/dL (74-99); Potassium 4.5 mmol/L (3.5-5.1); Sodium 138 mmol/L (137-145); Total Bilirubin 0.3 mg/dL (0.2-1.3); Total Protein 7.5 g/dL (6.3-8.2)
--- NOTE | 2019-06-20 19:09 | XR ---
EXAMINATION TYPE: XR KUB DATE OF EXAM: 06/20/2019 COMPARISON: 12/21/2018 HISTORY: Nausea and pain TECHNIQUE: 2 views upright FINDINGS: There is no sign of intestinal obstruction or pneumoperitoneum. Fecal pattern is normal. Th ere is no evidence of a mass. IMPRESSION: Nonacute abdomen. No change.
[2019-06-20 19:48] VITALS: BP 124/80; PULSE 95; TEMP 98.5
== END 2019-06-20 19:41 | disposition home or self-care (01) ==
LOC: EC 17:24
DX: R10.13 Epigastric pain (principal); K85.90 Acute pancreatitis without necrosis or infection, unspecified; M79.7 Fibromyalgia; R11.0 Nausea; K21.9 Gastro-esophageal reflux disease without esophagitis; F31.9 Bipolar disorder, unspecified; G40.909 Epilepsy, unspecified, not intractable, without status epilepticus; F17.200 Nicotine dependence, unspecified, uncomplicated; M19.90 Unspecified osteoarthritis, unspecified site; Z79.1 Long term (current) use of non-steroidal anti-inflammatories (NSAID); Z79.899 Other long term (current) drug therapy; Z88.7 Allergy status to serum and vaccine; Z90.49 Acquired absence of other specified parts of digestive tract
CPT/HCPCS: 36415; 74018; 80053; 81003; 81025; 83605; 83690; 85025; 96361; 96374; 99285

== ENCOUNTER 2019-08-18 12:04 | Emergency (ER) | payer OTHER ==
[2019-08-18] MEDS ORDERED: HYDROcodone/APAP 7.5-325MG 1 EACH TAB PO ONE (12:46)
[2019-08-18] MEDS ORDERED: KETOROLAC 60 MG/2 ML VIAL IM STA (12:46)
[2019-08-18 12:56] LABS: Appearance,Urine Clear (Clear); Bilirubin,Urine Negative (Negative); Blood,Urine Negative (Negative); Color,Urine Light Yellow; Glucose,Urine (UA) Negative (Negative); Ketones,Urine Negative (Negative); Leukocyte Esterase,Urine Negative (Negative); Nitrite,Urine Negative (Negative); Protein,Urine Negative (Negative); Specific Gravity,Urine 1.015 (1.001-1.035); Urobilinogen,Urine <2.0 mg/dL (<2.0)
[2019-08-18] MEDS ORDERED: ACET/COD 300 MG/30 MG STARTER PACK 6 TAB BTL PO STA (13:04)
--- NOTE | 2019-08-18 13:04 | ED ---
Back Pain HPI - General Chief Complaint: Back Pain/Injury Stated Complaint: Back pain Time Seen by Provider: 08/18/19 12:20 Source: patient, EMS, RN notes reviewed Mode of arrival: EMS Limitations: no limitations - History of Present Illness Initial Comments: 24 show female presents emergency from with chief complaint of low back pain. Patient states that she's had a history of back pain with fibromyalgia. She takes baclofen, Neurontin naproxen. She states that she took her baclofen and Neurontin prior arrival no naproxen. Patient denies any bowel bladder incontinence or retention denies any chance abdominal pain. Patient states she has just right lower back pain. - Related Data Home Medications Medication Instructions Recorded Confirmed Cyproheptadine HCl [Periactin] 4 mg PO DAILY PRN 02/29/16 06/20/19 Naproxen 500 mg PO BID 09/02/17 06/20/19 Gabapentin 1,200 mg PO TID 09/27/17 06/20/19 ARIPiprazole [Abilify] 10 mg PO HS 06/18/19 06/20/19 Albuterol Inhaler [Ventolin Hfa 2 puff INHALATION RT-Q6H PRN 06/18/19 06/20/19 Inhaler] Baclofen 10 mg PO TID 06/18/19 06/20/19 Hyoscyamine Sulfate [Levsin] 0.125 mg PO DAILY PRN 06/18/19 06/20/19 Omeprazole 20 mg PO DAILY 06/18/19 06/20/19 Ondansetron HCl [Zofran] 4 mg PO Q8H PRN 06/18/19 06/20/19 Sertraline HCl [Zoloft] 25 mg PO HS 06/18/19 06/20/19 lamoTRIgine [LaMICtal] 200 mg PO DAILY 06/18/19 06/20/19 Previous Rx's Medication Instructions Recorded Famotidine [Pepcid] 20 mg PO BID #20 tablet 06/20/19 Allergies Allergy/AdvReac Type Severity Reaction Status Date / Time Pertussis Vaccines Allergy Rash/Hives Verified 08/18/19 12:11 Review of Systems ROS Statement: Those systems with pertinent positive or pertinent negative responses have been documented in the HPI. ROS Other: All systems not noted in ROS Statement are negative. Past Medical History Past Medical History: Eye Disorder, Fibromyalgia, GERD/Reflux, Osteoarthritis (OA), Pneumonia, Seizure Disorder Additional Past Medical History / Comment(s): irregular menstrual cycles, epilepsy , insomnia, restless leg syndrome, chronic knee and back pain, migraines, resolved pneumonia in 2014 History of Any Multi-Drug Resistant Organisms: None Reported Past Surgical History: Cholecystectomy, Orthopedic Surgery Additional Past Surgical History / Comment(s): SEVERAL SCOPES ON RT KNEE, EGD 09/21/15 Past Anesthesia/Blood Transfusion Reactions: No Reported Reaction Past Psychological History: Bipolar, Depression Smoking Status: Current every day smoker Past Alcohol Use History: Occasional Past Drug Use History: None Reported - Past Family History Mother Family Medical History: Hypertension Father History Unknown: Yes Family Medical History: Coronary Artery Disease (CAD) Additional Family Medical History / Comment(s): PT STATES FATHER WHEN SHE WAS VERY LITTLE- DOES NOT KNOW WHY HE Sister(s) Family Medical History: No Reported History General Exam Limitations: no limitations General appearance: alert, in no apparent distress Head exam: Present: atraumatic, normocephalic, normal inspection Eye exam: Present: normal appearance, PERRL, EOMI. Absent: scleral icterus, conjunctival injection, periorbital swelling ENT exam: Present: normal exam, normal oropharynx, mucous membranes moist, TM's normal bilaterally, normal external ear exam Respiratory exam: Present: normal lung sounds bilaterally. Absent: respiratory distress, wheezes, rales, rhonchi, stridor Cardiovascular Exam: Present: regular rate, normal rhythm, normal heart sounds. Absent: systolic murmur, diastolic murmur, rubs, gallop, clicks GI/Abdominal exam: Present: soft, normal bowel sounds. Absent: distended, tenderness, guarding, rebound, rigid Extremities exam: Present: other (She was strength equal bilaterally neurovascular intact) Back exam: Present: full ROM, tenderness (Right SI, right paralumbar), paraspinal tenderness. Absent: vertebral tenderness Neurological exam: Present: alert, oriented X3, CN II-XII intact Course Vital Signs 08/18/19 08/18/19 12:09 12:42 Temperature 98.6 F Pulse Rate 89 Respiratory 18 16 Rate Blood Pressure 138/95 O2 Sat by Pulse 98 Oximetry Medical Decision Making - Medical Decision Making 24-year-old female presented for low back pain. Patient is lumbar back pain, muscle spasms. Patient was given pain medication, Toradol emergency from. Patient is advised follow-up with her pain management. Return parameters were discussed. - Lab Data Lab Results 08/18/19 08/18/19 Range/Units 12:39 12:39 Urine Color Light Yellow Urine Appearance Clear (Clear) Urine pH 6.0 (5.0-8.0) Ur Specific [place] 1.015 (1.001-1.035) Urine Protein Negative (Negative) Urine Glucose (UA) Negative (Negative) Urine Ketones Negative (Negative) Urine Blood Negative (Negative) Urine Nitrite Negative (Negative) Urine Bilirubin Negative (Negative) Urine Urobilinogen <2.0 (<2.0) mg/dL Ur Leukocyte Esterase Negative (Negative) Urine HCG, Qual Not Detected (Not Detectd) Disposition Clinical Impression: Lumbar back pain Disposition: HOME SELF-CARE Condition: Stable Instructions (If sedation given, give patient instructions): Acute Low Back Pain (ED) Additional Instructions: Please return to the Emergency Department if symptoms worsen or any other concerns. Is patient prescribed a controlled substance at d/c from ED?: No Referrals: Nikia May MD [Primary Care Provider] - 1-2 days Time of Disposition: 13:03
[2019-08-18 13:19] VITALS: BP 132/84; PULSE 79; RESP 18; TEMP 98.3
== END 2019-08-18 13:34 | disposition home or self-care (01) ==
LOC: EC 12:04
DX: M54.5 Low back pain (principal); M62.830 Muscle spasm of back; Z32.02 Encounter for pregnancy test, result negative; K21.9 Gastro-esophageal reflux disease without esophagitis; G40.909 Epilepsy, unspecified, not intractable, without status epilepticus; F31.9 Bipolar disorder, unspecified; F17.200 Nicotine dependence, unspecified, uncomplicated; Z79.899 Other long term (current) drug therapy; Z88.7 Allergy status to serum and vaccine
CPT/HCPCS: 81003; 81025; 99283; 96372; J1885

== ENCOUNTER 2019-09-09 21:43 | Emergency (ER) | payer OTHER ==
[2019-09-09 21:54] VITALS: BP 137/87; PULSE 82; RESP 18; TEMP 98.3
[2019-09-09] MEDS ORDERED: KETOROLAC 30 MG/ML 1 ML VIAL IVP STA (22:40)
[2019-09-09] MEDS ORDERED: ONDANSETRON 4 MG/2 ML VIAL IVP STA (22:40)
[2019-09-09] MEDS ORDERED: SODIUM CHLORIDE 0.9% 1,000 ML IV STA (22:40)
[2019-09-09] MEDS ORDERED: HYDROmorphone 0.5 MG/0.5 ML SYRINGE IVP STA (22:40)
--- NOTE | 2019-09-09 22:43 | ED ---
Abdominal Pain HPI - General Chief Complaint: Abdominal Pain Stated Complaint: Abd pain Time Seen by Provider: 09/09/19 22:00 Source: patient Mode of arrival: ambulatory Limitations: no limitations - History of Present Illness Initial Comments: 24 year-old female patient medical history significant for pancreatitis presents to the emergency department today for evaluation of midepigastric pain radiating through to her back. Patient states she's had this pain since 108 100 this morning. Patient denies any associated symptoms. Denies nausea, vomiting, constipation, diarrhea. Denies fever or chills. She denies any chest pain or shortness of breath. She denies any hematuria, dysuria, urinary frequency, urinary urgency. Denies any chance of . Patient states this pain is similar to when she had pancreatitis in the past. States she has had cholecystectomy. States he is unable to find a cause for her pancreatitis. Last episode was about 6 months ago. Patient denies any recent rash, shortness breath, chest pain, numbness, tingling, dizziness, weakness, headache, visual changes, or any other complaints. - Related Data Home Medications Medication Instructions Recorded Confirmed Cyproheptadine HCl [Periactin] 4 mg PO DAILY PRN 02/29/16 06/20/19 Naproxen 500 mg PO BID 09/02/17 06/20/19 Gabapentin 1,200 mg PO TID 09/27/17 06/20/19 ARIPiprazole [Abilify] 10 mg PO HS 06/18/19 06/20/19 Albuterol Inhaler [Ventolin Hfa 2 puff INHALATION RT-Q6H PRN 06/18/19 06/20/19 Inhaler] Baclofen 10 mg PO TID 06/18/19 06/20/19 Hyoscyamine Sulfate [Levsin] 0.125 mg PO DAILY PRN 06/18/19 06/20/19 Omeprazole 20 mg PO DAILY 06/18/19 06/20/19 Ondansetron HCl [Zofran] 4 mg PO Q8H PRN 06/18/19 06/20/19 Sertraline HCl [Zoloft] 25 mg PO HS 06/18/19 06/20/19 lamoTRIgine [LaMICtal] 200 mg PO DAILY 06/18/19 06/20/19 Previous Rx's Medication Instructions Recorded Famotidine [Pepcid] 20 mg PO BID #20 tablet 06/20/19 Allergies Allergy/AdvReac Type Severity Reaction Status Date / Time Pertussis Vaccines Allergy Rash/Hives Verified 09/09/19 21:48 Review of Systems ROS Statement: Those systems with pertinent positive or pertinent negative responses have been documented in the HPI. ROS Other: All systems not noted in ROS Statement are negative. Past Medical History Past Medical History: Eye Disorder, Fibromyalgia, GERD/Reflux, Osteoarthritis (OA), Pneumonia, Seizure Disorder Additional Past Medical History / Comment(s): irregular menstrual cycles, epilepsy , insomnia, restless leg syndrome, chronic knee and back pain, migraines, resolved pneumonia in 2014, borderline panic disorder, intermittent explosive rage disorder. History of Any Multi-Drug Resistant Organisms: None Reported Past Surgical History: Cholecystectomy, Orthopedic Surgery Additional Past Surgical History / Comment(s): SEVERAL SCOPES ON RT KNEE, EGD 09/21/15 Past Anesthesia/Blood Transfusion Reactions: No Reported Reaction Past Psychological History: Anxiety, Bipolar, Depression, PTSD, Schizophrenia Smoking Status: Current every day smoker Past Alcohol Use History: Occasional Past Drug Use History: None Reported - Past Family History Mother Family Medical History: Hypertension Father History Unknown: Yes Family Medical History: Coronary Artery Disease (CAD) Additional Family Medical History / Comment(s): PT STATES FATHER WHEN SHE WAS VERY LITTLE- DOES NOT KNOW WHY HE Sister(s) Family Medical History: No Reported History General Exam Limitations: no limitations General appearance: alert, in no apparent distress, other (This is a well- developed, well-nourished adult female patient in no acute distress. Vital signs upon presentation are temperature 98.3F, pulse 82, respirations 18, blood pressure 137/87, pulse ox 95% on room air.) Eye exam: Present: normal appearance, PERRL, EOMI. Absent: scleral icterus, conjunctival injection, periorbital swelling ENT exam: Present: normal exam, normal oropharynx, mucous membranes moist Respiratory exam: Present: normal lung sounds bilaterally. Absent: respiratory distress, wheezes, rales, rhonchi, stridor Cardiovascular Exam: Present: regular rate, normal rhythm, normal heart sounds. Absent: systolic murmur, diastolic murmur, rubs, gallop, clicks GI/Abdominal exam: Present: soft, tenderness (Midepigastric), normal bowel sounds. Absent: distended, guarding, rebound, rigid Back exam: Absent: CVA tenderness (R), CVA tenderness (L) Neurological exam: Present: alert, oriented X3, CN II-XII intact Psychiatric exam: Present: normal affect, normal mood Skin exam: Present: warm, dry, intact, normal color. Absent: rash Course Vital Signs 09/09/19 21:48 Temperature 98.3 F Pulse Rate 82 Respiratory 18 Rate Blood Pressure 137/87 O2 Sat by Pulse 95 Oximetry Medical Decision Making - Medical Decision Making 24 old female patient presents to the emergency department today for evaluation of midepigastric abdominal pain. Physical examination did reveal tenderness over the midepigastric region. Labs reviewed and are unremarkable. Lipase is normal. KUB x-ray is unremarkable. Patient be discharged with this and follow up with her primary care physician for recheck as soon as possible. Return parameters were discussed in detail. They verbalizes understanding and agrees with this plan. - Lab Data Result diagrams: 09/09/19 22:05 09/09/19 22:05 Lab Results 09/09/19 09/09/19 09/09/19 Range/Units 22:05 22:05 22:05 WBC 9.4 (3.8-10.6) k/uL RBC 4.48 (3.80-5.40) m/uL Hgb 12.0 (11.4-16.0) gm/dL Hct 36.8 (34.0-46.0) % MCV 82.1 (80.0-100.0) fL MCH 26.8 (25.0-35.0) pg MCHC 32.6 (31.0-37.0) g/dL RDW 14.1 (11.5-15.5) % Plt Count 316 (150-450) k/uL Neutrophils % 59 % Lymphocytes % 32 % Monocytes % 4 % Eosinophils % 1 % Basophils % 1 % Neutrophils # 5.6 (1.3-7.7) k/uL Lymphocytes # 3.1 (1.0-4.8) k/uL Monocytes # 0.4 (0-1.0) k/uL Eosinophils # 0.1 (0-0.7) k/uL Basophils # 0.1 (0-0.2) k/uL Sodium 139 (137-145) mmol/L Potassium 4.6 (3.5-5.1) mmol/L Chloride 106 (98-107) mmol/L Carbon Dioxide 25 (22-30) mmol/L Anion Gap 8 mmol/L BUN 12 (7-17) mg/dL Creatinine 0.73 (0.52-1.04) mg/dL Est GFR (CKD-EPI)AfAm >90 (>60 ml/min/1.73 sqM) Est GFR (CKD-EPI)NonAf >90 (>60 ml/min/1.73 sqM) Glucose 86 (74-99) mg/dL Calcium 9.4 (8.4-10.2) mg/dL Total Bilirubin 0.4 (0.2-1.3) mg/dL AST 17 (14-36) U/L ALT 17 (9-52) U/L Alkaline Phosphatase 108 (38-126) U/L Total Protein 7.0 (6.3-8.2) g/dL Albumin 4.1 (3.5-5.0) g/dL Amylase 37 (30-110) U/L Lipase 81 (23-300) U/L Urine Color Urine Appearance (Clear) Urine pH (5.0-8.0) Ur Specific [place] (1.001-1.035) Urine Protein (Negative) Urine Glucose (UA) (Negative) Urine Ketones (Negative) Urine Blood (Negative) Urine Nitrite (Negative) Urine Bilirubin (Negative) Urine Urobilinogen (<2.0) mg/dL Ur Leukocyte Esterase (Negative) Urine RBC (0-5) /hpf Urine WBC (0-5) /hpf Ur Squamous Epith Cells (0-4) /hpf Urine Bacteria (None) /hpf Urine HCG, Qual Not Detected (Not Detectd) 09/09/19 Range/Units 22:05 WBC (3.8-10.6) k/uL RBC (3.80-5.40) m/uL Hgb (11.4-16.0) gm/dL Hct (34.0-46.0) % MCV (80.0-100.0) fL MCH (25.0-35.0) pg MCHC (31.0-37.0) g/dL RDW (11.5-15.5) % Plt Count (150-450) k/uL Neutrophils % % Lymphocytes % % Monocytes % % Eosinophils % % Basophils % % Neutrophils # (1.3-7.7) k/uL Lymphocytes # (1.0-4.8) k/uL Monocytes # (0-1.0) k/uL Eosinophils # (0-0.7) k/uL Basophils # (0-0.2) k/uL Sodium (137-145) mmol/L Potassium (3.5-5.1) mmol/L Chloride (98-107) mmol/L Carbon Dioxide (22-30) mmol/L Anion Gap mmol/L BUN (7-17) mg/dL Creatinine (0.52-1.04) mg/dL Est GFR (CKD-EPI)AfAm (>60 ml/min/1.73 sqM) Est GFR (CKD-EPI)NonAf (>60 ml/min/1.73 sqM) Glucose (74-99) mg/dL Calcium (8.4-10.2) mg/dL Total Bilirubin (0.2-1.3) mg/dL AST (14-36) U/L ALT (9-52) U/L Alkaline Phosphatase (38-126) U/L Total Protein (6.3-8.2) g/dL Albumin (3.5-5.0) g/dL Amylase (30-110) U/L Lipase (23-300) U/L Urine Color Yellow Urine Appearance Clear (Clear) Urine pH 6.0 (5.0-8.0) Ur Specific [place] 1.007 (1.001-1.035) Urine Protein Negative (Negative) Urine Glucose (UA) Negative (Negative) Urine Ketones Negative (Negative) Urine Blood Trace H (Negative) Urine Nitrite Negative (Negative) Urine Bilirubin Negative (Negative) Urine Urobilinogen <2.0 (<2.0) mg/dL Ur Leukocyte Esterase Negative (Negative) Urine RBC 1 (0-5) /hpf Urine WBC 1 (0-5) /hpf Ur Squamous Epith Cells 5 H (0-4) /hpf Urine Bacteria Moderate H (None) /hpf Urine HCG, Qual (Not Detectd) - Radiology Data Radiology results: report reviewed X-ray of the abdomen is obtained. Report was reviewed in its entirety. Impression by Dr. Jarvis shows no evidence of bowel obstruction or free intraperitoneal air. Disposition Clinical Impression: Abdominal pain Disposition: HOME SELF-CARE Condition: Good Is patient prescribed a controlled substance at d/c from ED?: No Referrals: Nikia May MD [Primary Care Provider] - 1-2 days
[2019-09-09 22:51] LABS: Basophils # (A) 0.1 k/uL (0-0.2); Basophils % (A) 1 %; Eosinophils # (A) 0.1 k/uL (0-0.7); Eosinophils % (A) 1 %; HCT 36.8 % (34.0-46.0); Lymphocytes # (A) 3.1 k/uL (1.0-4.8); Lymphocytes % (A) 32 %; MCH 26.8 pg (25.0-35.0); MCHC 32.6 g/dL (31.0-37.0); MCV 82.1 fL (80.0-100.0); Mean Platelet Volume 6.5; Monocytes # (A) 0.4 k/uL (0-1.0); Monocytes % (A) 4 %; Neutrophils # (A) 5.6 k/uL (1.3-7.7); Neutrophils % (A) 59 %; Platelet Count 316 k/uL (150-450); RBC 4.48 m/uL (3.80-5.40); RDW 14.1 % (11.5-15.5); WBC 9.4 k/uL (3.8-10.6)
[2019-09-09 22:54] LABS: Appearance,Urine Clear (Clear); Bacteria,Urine Moderate /hpf; Bilirubin,Urine Negative (Negative); Blood,Urine Trace (Negative); Color,Urine Yellow; Glucose,Urine (UA) Negative (Negative); Ketones,Urine Negative (Negative); Leukocyte Esterase,Urine Negative (Negative); Nitrite,Urine Negative (Negative); Protein,Urine Negative (Negative); RBC,Urine 1 /hpf (0-5); Specific Gravity,Urine 1.007 (1.001-1.035); Squamous Epithelial Cell,Urine 5 /hpf (0-4); Urobilinogen,Urine <2.0 mg/dL (<2.0); WBC,Urine 1 /hpf (0-5)
[2019-09-09 22:58] LABS: ALT 17 U/L (9-52); AST 17 U/L (14-36); African American GFR (CKD) >90 (>60 ml/min/1.73 sqM); Albumin 4.1 g/dL (3.5-5.0); Alkaline Phosphatase 108 U/L (38-126); Amylase 37 U/L (30-110); Anion Gap 8 mmol/L; Blood Urea Nitrogen 12 mg/dL (7-17); Calcium 9.4 mg/dL (8.4-10.2); Carbon Dioxide 25 mmol/L (22-30); Chloride 106 mmol/L (98-107); Glucose 86 mg/dL (74-99); Non-African American GFR(CKD) >90 (>60 ml/min/1.73 sqM); Potassium 4.6 mmol/L (3.5-5.1); Sodium 139 mmol/L (137-145); Total Bilirubin 0.4 mg/dL (0.2-1.3)
[2019-09-10] MEDS ORDERED: ACET/COD 300 MG/30 MG STARTER PACK 6 TAB BTL PO ONE (01:28)
--- NOTE | 2019-09-10 10:26 | XR ---
EXAMINATION TYPE: XR KUB DATE OF EXAM: 09/10/2019 CLINICAL DATA: 24-year-old female with abdominal pain, [facility] COMPARISON: 06/20/2019 FINDINGS: Lung bases are clear. No evidence for free intraperitoneal air. No dilated small bowel or air-fluid levels. Scattered air throughout the colon extending distally to the rectum. Mild stool is present. No suspicious calcifications identified. IMPRESSION: No evidence of bowel obstruction or free intraperitoneal air.
== END 2019-09-10 01:34 | disposition home or self-care (01) ==
LOC: EC 21:43
DX: R10.13 Epigastric pain (principal); M54.9 Dorsalgia, unspecified; M79.7 Fibromyalgia; K21.9 Gastro-esophageal reflux disease without esophagitis; M19.90 Unspecified osteoarthritis, unspecified site; G40.909 Epilepsy, unspecified, not intractable, without status epilepticus; G25.81 Restless legs syndrome; F31.9 Bipolar disorder, unspecified; F41.9 Anxiety disorder, unspecified; F20.9 Schizophrenia, unspecified; F43.10 Post-traumatic stress disorder, unspecified; F17.200 Nicotine dependence, unspecified, uncomplicated; Z88.7 Allergy status to serum and vaccine; Z79.1 Long term (current) use of non-steroidal anti-inflammatories (NSAID); Z79.899 Other long term (current) drug therapy; Z87.19 Personal history of other diseases of the digestive system; Z86.69 Personal history of other diseases of the nervous system and sense organs; Z90.49 Acquired absence of other specified parts of digestive tract
CPT/HCPCS: 36415; 80053; 82150; 83690; 85025; 81001; 81025; 74018; 99284; 96374; 96375 ×2; 96361; J2405; J1885; J1170

== ENCOUNTER 2019-09-11 18:21 | Emergency (ER) | payer OTHER ==
[2019-09-11 18:28] VITALS: BP 134/93; PULSE 83; RESP 18; TEMP 98.1
--- NOTE | 2019-09-11 18:32 | ED ---
General Adult HPI - General Chief complaint: Abdominal Pain Stated complaint: Abd pain Time Seen by Provider: 09/11/19 18:24 Source: patient, RN notes reviewed Mode of arrival: EMS Limitations: no limitations - History of Present Illness Initial comments: 24 year old female with a past medical history of fibromyalgia, GERD, epilepsy, insomnia, pancreatitis, cholecystectomy presents to the emergency department for chief complaint of epigastric pain. States this has been ongoing for the past 2 days. Patient states that she was seen here on Monday but she has had continued pain since that time. Patient started to have nausea vomiting and diarrhea today as well. States his headache feels consistent with past episodes of pancreatitis. Denies any lower abdominal pain. Denies any fevers or chills. When asked if patient called her doctor to make an appointment she says she "forgot."Patient has no other complaints at this time including shortness of breath, chest pain, headache, or visual changes. - Related Data Home Medications Medication Instructions Recorded Confirmed Cyproheptadine HCl [Periactin] 4 mg PO DAILY PRN 02/29/16 06/20/19 Naproxen 500 mg PO BID 09/02/17 06/20/19 Gabapentin 1,200 mg PO TID 09/27/17 06/20/19 ARIPiprazole [Abilify] 10 mg PO HS 06/18/19 06/20/19 Albuterol Inhaler [Ventolin Hfa 2 puff INHALATION RT-Q6H PRN 06/18/19 06/20/19 Inhaler] Baclofen 10 mg PO TID 06/18/19 06/20/19 Hyoscyamine Sulfate [Levsin] 0.125 mg PO DAILY PRN 06/18/19 06/20/19 Omeprazole 20 mg PO DAILY 06/18/19 06/20/19 Ondansetron HCl [Zofran] 4 mg PO Q8H PRN 06/18/19 06/20/19 Sertraline HCl [Zoloft] 25 mg PO HS 06/18/19 06/20/19 lamoTRIgine [LaMICtal] 200 mg PO DAILY 06/18/19 06/20/19 Previous Rx's Medication Instructions Recorded Famotidine [Pepcid] 20 mg PO BID #20 tablet 06/20/19 Allergies Allergy/AdvReac Type Severity Reaction Status Date / Time Pertussis Vaccines Allergy Rash/Hives Verified 09/11/19 18:28 Review of Systems ROS Statement: Those systems with pertinent positive or pertinent negative responses have been documented in the HPI. ROS Other: All systems not noted in ROS Statement are negative. Past Medical History Past Medical History: Eye Disorder, Fibromyalgia, GERD/Reflux, Osteoarthritis (OA), Pneumonia, Seizure Disorder Additional Past Medical History / Comment(s): irregular menstrual cycles, epilepsy , insomnia, restless leg syndrome, chronic knee and back pain, migraines, resolved pneumonia in 2014, borderline panic disorder, inter mittent explosive rage disorder. History of Any Multi-Drug Resistant Organisms: None Reported Past Surgical History: Cholecystectomy, Orthopedic Surgery Additional Past Surgical History / Comment(s): SEVERAL SCOPES ON RT KNEE, EGD 09/21/15 Past Anesthesia/Blood Transfusion Reactions: No Reported Reaction Past Psychological History: Anxiety, Bipolar, Depression, PTSD, Schizophrenia Smoking Status: Current every day smoker Past Alcohol Use History: Occasional Past Drug Use History: None Reported - Past Family History Mother Family Medical History: Hypertension Father History Unknown: Yes Family Medical History: Coronary Artery Disease (CAD) Additional Family Medical History / Comment(s): PT STATES FATHER WHEN SHE WAS VERY LITTLE- DOES NOT KNOW WHY HE Sister(s) Family Medical History: No Reported History General Exam Limitations: no limitations General appearance: alert, in no apparent distress (Patient well-appearing, sitting up in bed without any apparent distress.) Head exam: Present: atraumatic, normocephalic, normal inspection Eye exam: Present: normal appearance, PERRL, EOMI. Absent: scleral icterus, conjunctival injection ENT exam: Present: normal exam, mucous membranes moist Neck exam: Present: normal inspection, full ROM. Absent: tenderness, meningismus, lymphadenopathy Respiratory exam: Present: normal lung sounds bilaterally. Absent: respiratory distress, wheezes, rales, rhonchi, stridor Cardiovascular Exam: Present: regular rate, normal rhythm, normal heart sounds. Absent: systolic murmur, diastolic murmur, rubs, gallop, clicks GI/Abdominal exam: Present: soft, tenderness (Mild epigastric tenderness. No right or left upper quadrant tenderness. No lower abdominal tenderness.), normal bowel sounds. Absent: distended, guarding, rebound, rigid Expanded GI/Abdominal exam: Absent: heel tap sign, Whitaker's sign, Rovsing's sign, tenderness at McBurney's Point Course Vital Signs 09/11/19 18:25 Temperature 98.1 F Pulse Rate 83 Respiratory 18 Rate Blood Pressure 134/93 O2 Sat by Pulse 98 Oximetry Medical Decision Making - Medical Decision Making Vitals are stable. He has mild epigastric pain however no other abdominal pain. Patient does not appear in any distress whatsoever. She is sitting up in the bed. CBC CMP are unremarkable. Amylase and lipase are negative. X-ray kub from yesterday was reviewed which did not show any evidence of free air or obstruction. Urinalysis unremarkable. At this time I do not have any indication to give patient her chronic pain medication. She will be given Pepcid and GI cocktail. She will follow up with her GI specialists as well as primary care. She'll return if she has any worsening symptoms. - Lab Data Result diagrams: 09/11/19 19:10 09/11/19 19:10 Lab Results 09/11/19 09/11/19 09/11/19 Range/Units 18:30 18:30 19:10 WBC (3.8-10.6) k/uL RBC (3.80-5.40) m/uL Hgb (11.4-16.0) gm/dL Hct (34.0-46.0) % MCV (80.0-100.0) fL MCH (25.0-35.0) pg MCHC (31.0-37.0) g/dL RDW (11.5-15.5) % Plt Count (150-450) k/uL Neutrophils % % Lymphocytes % % Monocytes % % Eosinophils % % Basophils % % Neutrophils # (1.3-7.7) k/uL Lymphocytes # (1.0-4.8) k/uL Monocytes # (0-1.0) k/uL Eosinophils # (0-0.7) k/uL Basophils # (0-0.2) k/uL Sodium 138 (137-145) mmol/L Potassium 4.7 (3.5-5.1) mmol/L Chloride 108 H (98-107) mmol/L Carbon Dioxide 22 (22-30) mmol/L Anion Gap 8 mmol/L BUN 9 (7-17) mg/dL Creatinine 0.63 (0.52-1.04) mg/dL Est GFR (CKD-EPI)AfAm >90 (>60 ml/min/1.73 sqM) Est GFR (CKD-EPI)NonAf >90 (>60 ml/min/1.73 sqM) Glucose 92 (74-99) mg/dL Calcium 9.2 (8.4-10.2) mg/dL Total Bilirubin 0.5 (0.2-1.3) mg/dL AST 25 (14-36) U/L ALT 20 (9-52) U/L Alkaline Phosphatase 92 (38-126) U/L Total Protein 7.2 (6.3-8.2) g/dL Albumin 4.1 (3.5-5.0) g/dL Amylase 30 (30-110) U/L Lipase 20 L (23-300) U/L Urine Color Light Yellow Urine Appearance Clear (Clear) Urine pH 7.0 (5.0-8.0) Ur Specific [place] 1.005 (1.001-1.035) Urine Protein Negative (Negative) Urine Glucose (UA) Negative (Negative) Urine Ketones Negative (Negative) Urine Blood Negative (Negative) Urine Nitrite Negative (Negative) Urine Bilirubin Negative (Negative) Urine Urobilinogen <2.0 (<2.0) mg/dL Ur Leukocyte Esterase Negative (Negative) Urine HCG, Qual Not Detected (Not Detectd) 09/11/19 Range/Units 19:10 WBC 7.0 (3.8-10.6) k/uL RBC 4.35 (3.80-5.40) m/uL Hgb 11.8 (11.4-16.0) gm/dL Hct 35.7 (34.0-46.0) % MCV 82.2 (80.0-100.0) fL MCH 27.1 (25.0-35.0) pg MCHC 32.9 (31.0-37.0) g/dL RDW 13.7 (11.5-15.5) % Plt Count 309 (150-450) k/uL Neutrophils % 62 % Lymphocytes % 31 % Monocytes % 4 % Eosinophils % 1 % Basophils % 0 % Neutrophils # 4.3 (1.3-7.7) k/uL Lymphocytes # 2.2 (1.0-4.8) k/uL Monocytes # 0.3 (0-1.0) k/uL Eosinophils # 0.1 (0-0.7) k/uL Basophils # 0.0 (0-0.2) k/uL Sodium (137-145) mmol/L Potassium (3.5-5.1) mmol/L Chloride (98-107) mmol/L Carbon Dioxide (22-30) mmol/L Anion Gap mmol/L BUN (7-17) mg/dL Creatinine (0.52-1.04) mg/dL Est GFR (CKD-EPI)AfAm (>60 ml/min/1.73 sqM) Est GFR (CKD-EPI)NonAf (>60 ml/min/1.73 sqM) Glucose (74-99) mg/dL Calcium (8.4-10.2) mg/dL Total Bilirubin (0.2-1.3) mg/dL AST (14-36) U/L ALT (9-52) U/L Alkaline Phosphatase (38-126) U/L Total Protein (6.3-8.2) g/dL Albumin (3.5-5.0) g/dL Amylase (30-110) U/L Lipase (23-300) U/L Urine Color Urine Appearance (Clear) Urine pH (5.0-8.0) Ur Specific [place] (1.001-1.035) Urine Protein (Negative) Urine Glucose (UA) (Negative) Urine Ketones (Negative) Urine Blood (Negative) Urine Nitrite (Negative) Urine Bilirubin (Negative) Urine Urobilinogen (<2.0) mg/dL Ur Leukocyte Esterase (Negative) Urine HCG, Qual (Not Detectd) Disposition Clinical Impression: Abdominal pain Disposition: HOME SELF-CARE Condition: Good Instructions (If sedation given, give patient instructions): Abdominal Pain (ED) Additional Instructions: Please follow up with primary care in 1-2 days. Follow up with your GI specialist as well. Return to the emergency department if you have any worsening symptoms. Is patient prescribed a controlled substance at d/c from ED?: No Referrals: Nikia May MD [Primary Care Provider] - 1-2 days Time of Disposition: 19:55
[2019-09-11] MEDS ORDERED: ONDANSETRON 4 MG/2 ML VIAL IVP STA (18:36)
[2019-09-11] MEDS ORDERED: SODIUM CHLORIDE 0.9% 1,000 ML IV STA (18:36)
[2019-09-11] MEDS ORDERED: KETOROLAC 30 MG/ML 1 ML VIAL IVP STA (18:36)
[2019-09-11 19:02] LABS: Appearance,Urine Clear (Clear); Bilirubin,Urine Negative (Negative); Blood,Urine Negative (Negative); Color,Urine Light Yellow; Glucose,Urine (UA) Negative (Negative); Ketones,Urine Negative (Negative); Leukocyte Esterase,Urine Negative (Negative); Nitrite,Urine Negative (Negative); Protein,Urine Negative (Negative); Specific Gravity,Urine 1.005 (1.001-1.035); Urobilinogen,Urine <2.0 mg/dL (<2.0)
[2019-09-11 19:30] LABS: ALT 20 U/L (9-52); AST 25 U/L (14-36); African American GFR (CKD) >90 (>60 ml/min/1.73 sqM); Albumin 4.1 g/dL (3.5-5.0); Alkaline Phosphatase 92 U/L (38-126); Amylase 30 U/L (30-110); Anion Gap 8 mmol/L; Blood Urea Nitrogen 9 mg/dL (7-17); Calcium 9.2 mg/dL (8.4-10.2); Carbon Dioxide 22 mmol/L (22-30); Chloride 108 mmol/L (98-107); Glucose 92 mg/dL (74-99); Non-African American GFR(CKD) >90 (>60 ml/min/1.73 sqM); Sodium 138 mmol/L (137-145); Total Bilirubin 0.5 mg/dL (0.2-1.3); Total Protein 7.2 g/dL (6.3-8.2)
[2019-09-11 19:38] LABS: Potassium 4.7 mmol/L (3.5-5.1)
[2019-09-11 19:39] LABS: Basophils % (A) 0 %; Eosinophils # (A) 0.1 k/uL (0-0.7); Eosinophils % (A) 1 %; HCT 35.7 % (34.0-46.0); HGB 11.8 gm/dL (11.4-16.0); Lymphocytes # (A) 2.2 k/uL (1.0-4.8); Lymphocytes % (A) 31 %; MCH 27.1 pg (25.0-35.0); MCHC 32.9 g/dL (31.0-37.0); MCV 82.2 fL (80.0-100.0); Mean Platelet Volume 5.7; Monocytes # (A) 0.3 k/uL (0-1.0); Monocytes % (A) 4 %; Neutrophils # (A) 4.3 k/uL (1.3-7.7); Neutrophils % (A) 62 %; Platelet Count 309 k/uL (150-450); RBC 4.35 m/uL (3.80-5.40); RDW 13.7 % (11.5-15.5)
[2019-09-11] MEDS ORDERED: FAMOTIDINE 20 MG/2 ML VIAL IV STA (19:43)
[2019-09-11] MEDS ORDERED: MAG HYDROX/AL HYDROX/SIMETH 30 ML, HYOSCYAMINE ELIXIR 10 ML, LIDOCAINE VISCOUS 2% 10 ML PO STA ×3 (19:43)
[2019-09-11] MEDS ORDERED: ACETAMINOPHEN TAB 500 MG TAB PO STA (19:44)
== END 2019-09-11 20:24 | disposition home or self-care (01) ==
LOC: EC 18:21
DX: R10.13 Epigastric pain (principal); R11.2 Nausea with vomiting, unspecified; R19.7 Diarrhea, unspecified; R51 Headache; M79.7 Fibromyalgia; K21.9 Gastro-esophageal reflux disease without esophagitis; M19.90 Unspecified osteoarthritis, unspecified site; G40.909 Epilepsy, unspecified, not intractable, without status epilepticus; F31.9 Bipolar disorder, unspecified; F41.9 Anxiety disorder, unspecified; F20.9 Schizophrenia, unspecified; F17.200 Nicotine dependence, unspecified, uncomplicated; Z88.7 Allergy status to serum and vaccine; Z79.1 Long term (current) use of non-steroidal anti-inflammatories (NSAID); Z79.899 Other long term (current) drug therapy; Z86.69 Personal history of other diseases of the nervous system and sense organs; Z90.49 Acquired absence of other specified parts of digestive tract
CPT/HCPCS: 36415; 80053; 82150; 83690; 85025; 81003; 81025; 99284; 96374; 96375 ×2; 96361; J2405; J1885

== ENCOUNTER 2019-09-20 12:48 | Emergency (ER) | payer OTHER ==
[2019-09-20] MEDS ORDERED: MORPHINE SULFATE 4 MG/ML SYRINGE IV STA (13:35)
[2019-09-20] MEDS ORDERED: METOCLOPRAMIDE 5 MG/ML 2 ML VIAL IVP STA (13:35)
[2019-09-20] MEDS ORDERED: SODIUM CHLORIDE 0.9% 1,000 ML IV STA (13:35)
[2019-09-20] MEDS ORDERED: SODIUM CHLORIDE 0.9% 500 ML 500 ML IV STA (13:35)
[2019-09-20 13:57] LABS: Basophils % (A) 0 %; Eosinophils # (A) 0.1 k/uL (0-0.7); Eosinophils % (A) 1 %; HCT 38.4 % (34.0-46.0); HGB 12.3 gm/dL (11.4-16.0); Lymphocytes # (A) 2.1 k/uL (1.0-4.8); Lymphocytes % (A) 20 %; MCH 26.3 pg (25.0-35.0); MCHC 32.1 g/dL (31.0-37.0); MCV 82.1 fL (80.0-100.0); Mean Platelet Volume 6.4; Monocytes # (A) 0.4 k/uL (0-1.0); Monocytes % (A) 4 %; Neutrophils # (A) 7.7 k/uL (1.3-7.7); Neutrophils % (A) 73 %; Platelet Count 307 k/uL (150-450); RBC 4.67 m/uL (3.80-5.40); RDW 14.2 % (11.5-15.5); WBC 10.5 k/uL (3.8-10.6)
[2019-09-20 13:59] LABS: Appearance,Urine Clear (Clear); Bilirubin,Urine Negative (Negative); Blood,Urine Negative (Negative); Color,Urine Yellow; Glucose,Urine (UA) Negative (Negative); Ketones,Urine Negative (Negative); Leukocyte Esterase,Urine Negative (Negative); Nitrite,Urine Negative (Negative); Protein,Urine Negative (Negative); Specific Gravity,Urine 1.028 (1.001-1.035); Urobilinogen,Urine <2.0 mg/dL (<2.0)
[2019-09-20 14:10] LABS: African American GFR (CKD) >90 (>60 ml/min/1.73 sqM); Amylase 39 U/L (30-110); Anion Gap 11 mmol/L; Blood Urea Nitrogen 17 mg/dL (7-17); Calcium 9.6 mg/dL (8.4-10.2); Carbon Dioxide 21 mmol/L (22-30); Chloride 107 mmol/L (98-107); Glucose 86 mg/dL (74-99); Non-African American GFR(CKD) >90 (>60 ml/min/1.73 sqM); Sodium 139 mmol/L (137-145); Total Bilirubin 0.8 mg/dL (0.2-1.3)
[2019-09-20 14:12] LABS: ALT 15 U/L (9-52); AST 33 U/L (14-36); Alkaline Phosphatase 98 U/L (38-126); Potassium 5.2 mmol/L (3.5-5.1); Total Protein 8.2 g/dL (6.3-8.2)
[2019-09-20 14:13] LABS: Albumin 4.7 g/dL (3.5-5.0)
--- NOTE | 2019-09-20 15:07 | ED ---
Abdominal Pain HPI - General Chief Complaint: Abdominal Pain Stated Complaint: Abdominal pain; vomiting Time Seen by Provider: 09/20/19 13:03 Source: patient Mode of arrival: ambulatory Limitations: no limitations - History of Present Illness Initial Comments: 24 year old female history of pancreatitis presenting today for chief complaint of vomiting left upper quadrant abdominal pain and diarrhea. Patient states this doesnt feel like this is her typical pancreatitis exacerbations as it usually radiates to her back. She states this is more left upper quadrant. Patient states she has loose stools and vomiting denies any hematemesis melena hematoch ezia fevers recent travel. Patient denies any specific sick contacts. Patient denies any lower abdominal pain and vaginal bleeding in . Remaining review of systems negative upon arrival patient appears well no distress no active vomiting - Related Data Home Medications Medication Instructions Recorded Confirmed Cyproheptadine HCl [Periactin] 4 mg PO DAILY PRN 02/29/16 09/20/19 Naproxen 500 mg PO BID 09/02/17 09/20/19 Gabapentin 1,200 mg PO TID 09/27/17 09/20/19 ARIPiprazole [Abilify] 10 mg PO HS 06/18/19 09/20/19 Albuterol Inhaler [Ventolin Hfa 2 puff INHALATION RT-Q6H PRN 06/18/19 09/20/19 Inhaler] Hyoscyamine Sulfate [Levsin] 0.125 mg PO DAILY PRN 06/18/19 09/20/19 Ondansetron HCl [Zofran] 4 mg PO Q8H PRN 06/18/19 09/20/19 lamoTRIgine [LaMICtal] 200 mg PO DAILY 06/18/19 09/20/19 Baclofen [Lioresal] 20 mg PO TID 09/20/19 09/20/19 Famotidine [Pepcid] 40 mg PO DAILY 09/20/19 09/20/19 Sertraline [Zoloft] 200 mg PO HS 09/20/19 09/20/19 Previous Rx's Medication Instructions Recorded Ondansetron Odt [Zofran Odt] 4 mg PO Q8HR PRN 5 Days #15 tab 09/20/19 Allergies Allergy/AdvReac Type Severity Reaction Status Date / Time Pertussis Vaccines Allergy Rash/Hives Verified 09/20/19 14:43 Review of Systems ROS Statement: Those systems with pertinent positive or pertinent negative responses have been documented in the HPI. ROS Other: All systems not noted in ROS Statement are negative. Past Medical History Past Medical History: Eye Disorder, Fibromyalgia, GERD/Reflux, Osteoarthritis (OA), Pneumonia, Seizure Disorder Additional Past Medical History / Comment(s): irregular menstrual cycles, epilepsy , insomnia, restless leg syndrome, chronic knee and back pain, migraines, resolved pneumonia in 2014, borderline panic disorder, intermittent explosive rage disorder. History of Any Multi-Drug Resistant Organisms: None Reported Past Surgical History: Cholecystectomy, Orthopedic Surgery Additional Past Surgical History / Comment(s): SEVERAL SCOPES ON RT KNEE, EGD 09/21/15 Past Anesthesia/Blood Transfusion Reactions: No Reported Reaction Past Psychological History: Anxiety, Bipolar, Depression, Panic Disorder, PTSD, Schizophrenia Smoking Status: Current every day smoker Past Alcohol Use History: Occasional Past Drug Use History: None Reported - Past Family History Mother Family Medical History: Hypertension Father History Unknown: Yes Family Medical History: Coronary Artery Disease (CAD) Additional Family Medical History / Comment(s): PT STATES FATHER WHEN SHE WAS VERY LITTLE- DOES NOT KNOW WHY HE Sister(s) Family Medical History: No Reported History General Exam - General Exam Comments Initial Comments: General: The patient is awake and alert, in no distress, and does not appear acutely ill. Eye: +3 mm pupils are equal, round and reactive to light, extra-ocular movements are intact. No nystagmus. There is normal conjunctiva bilaterally. No signs of icterus. Ears, nose, mouth and throat: There are moist mucous membranes and no oral lesions. Neck: The neck is supple, there is no tenderness or JVD. Cardiovascular: There is a regular rate and rhythm. No murmur, rub or gallop is appreciated. Respiratory: Lungs are clear to auscultation, respirations are non-labored, breath sounds are equal. No wheezes, stridor, rales, or rhonchi. Gastrointestinal: Soft, non-distended, mild tenderness to palpation of the LUQ abdomen without masses or organomegaly noted. There is no rebound or guarding present. Musculoskeletal: Normal ROM, no tenderness. Strength 5/5. Sensation intact. Radial pulses equal bilaterally 2+. Neurological: A&O x 3. CN II-XII intact grossly, There are no obvious motor or sensory deficits. Coordination appears grossly intact. Speech is normal. Skin: Skin is warm and dry and no rashes or lesions are noted. Psychiatric: Cooperative, appropriate mood & affect, normal judgment. Limitations: no limitations Course Vital Signs 09/20/19 09/20/19 09/20/19 12:52 12:53 13:00 Temperature 98.1 F Pulse Rate 89 81 Respiratory 20 18 Rate Blood Pressure 134/90 134/90 O2 Sat by Pulse 99 100 Oximetry 09/20/19 09/20/19 14:00 15:00 Temperature 97.8 F Pulse Rate 84 82 Respiratory 18 18 Rate Blood Pressure 124/83 125/78 O2 Sat by Pulse Oximetry Medical Decision Making - Medical Decision Making 24 or female presenting today for chief complaint of vomiting diarrhea left upper quadrant abdominal pain 2 days. Patient afebrile well-appearing on examination does not appear dehydrated clinically. Patient's laboratory studies reveals no leukocytosis. No transaminitis elevation of lipase or increasing alkaline phosphatase or bilirubin noted. Patient symptoms controlled. No vomiting. Abdominal exam benign there is no rebound tenderness guarding the tenderness is very minimal. At this time I do feel patient is stable for discharge with outpatient primary care follow-up return parameters were discussed at length the patient patient is agreeable to discharge as well as return parameters importance of follow-up. Discussed case with a provider Dr. Nelson who is agreeable to care plan - Lab Data Result diagrams: 09/20/19 12:56 09/20/19 12:56 Lab Results 09/20/19 09/20/19 09/20/19 Range/Units 12:56 12:56 12:56 WBC 10.5 (3.8-10.6) k/uL RBC 4.67 (3.80-5.40) m/uL Hgb 12.3 (11.4-16.0) gm/dL Hct 38.4 (34.0-46.0) % MCV 82.1 (80.0-100.0) fL MCH 26.3 (25.0-35.0) pg MCHC 32.1 (31.0-37.0) g/dL RDW 14.2 (11.5-15.5) % Plt Count 307 (150-450) k/uL Neutrophils % 73 % Lymphocytes % 20 % Monocytes % 4 % Eosinophils % 1 % Basophils % 0 % Neutrophils # 7.7 (1.3-7.7) k/uL Lymphocytes # 2.1 (1.0-4.8) k/uL Monocytes # 0.4 (0-1.0) k/uL Eosinophils # 0.1 (0-0.7) k/uL Basophils # 0.0 (0-0.2) k/uL Sodium 139 (137-145) mmol/L Potassium 5.2 H (3.5-5.1) mmol/L Chloride 107 (98-107) mmol/L Carbon Dioxide 21 L (22-30) mmol/L Anion Gap 11 mmol/L BUN 17 (7-17) mg/dL Creatinine 0.71 (0.52-1.04) mg/dL Est GFR (CKD-EPI)AfAm >90 (>60 ml/min/1.73 sqM) Est GFR (CKD-EPI)NonAf >90 (>60 ml/min/1.73 sqM) Glucose 86 (74-99) mg/dL Calcium 9.6 (8.4-10.2) mg/dL Total Bilirubin 0.8 (0.2-1.3) mg/dL AST 33 (14-36) U/L ALT 15 (9-52) U/L Alkaline Phosphatase 98 (38-126) U/L Total Protein 8.2 (6.3-8.2) g/dL Albumin 4.7 (3.5-5.0) g/dL Amylase 39 (30-110) U/L Lipase 48 (23-300) U/L Urine Color Urine Appearance (Clear) Urine pH (5.0-8.0) Ur Specific [place] (1.001-1.035) Urine Protein (Negative) Urine Glucose (UA) (Negative) Urine Ketones (Negative) Urine Blood (Negative) Urine Nitrite (Negative) Urine Bilirubin (Negative) Urine Urobilinogen (<2.0) mg/dL Ur Leukocyte Esterase (Negative) Urine HCG, Qual Not Detected (Not Detectd) 09/20/19 Range/Units 12:56 WBC (3.8-10.6) k/uL RBC (3.80-5.40) m/uL Hgb (11.4-16.0) gm/dL Hct (34.0-46.0) % MCV (80.0-100.0) fL MCH (25.0-35.0) pg MCHC (31.0-37.0) g/dL RDW (11.5-15.5) % Plt Count (150-450) k/uL Neutrophils % % Lymphocytes % % Monocytes % % Eosinophils % % Basophils % % Neutrophils # (1.3-7.7) k/uL Lymphocytes # (1.0-4.8) k/uL Monocytes # (0-1.0) k/uL Eosinophils # (0-0.7) k/uL Basophils # (0-0.2) k/uL Sodium (137-145) mmol/L Potassium (3.5-5.1) mmol/L Chloride (98-107) mmol/L Carbon Dioxide (22-30) mmol/L Anion Gap mmol/L BUN (7-17) mg/dL Creatinine (0.52-1.04) mg/dL Est GFR (CKD-EPI)AfAm (>60 ml/min/1.73 sqM) Est GFR (CKD-EPI)NonAf (>60 ml/min/1.73 sqM) Glucose (74-99) mg/dL Calcium (8.4-10.2) mg/dL Total Bilirubin (0.2-1.3) mg/dL AST (14-36) U/L ALT (9-52) U/L Alkaline Phosphatase (38-126) U/L Total Protein (6.3-8.2) g/dL Albumin (3.5-5.0) g/dL Amylase (30-110) U/L Lipase (23-300) U/L Urine Color Yellow Urine Appearance Clear (Clear) Urine pH 6.0 (5.0-8.0) Ur Specific [place] 1.028 (1.001-1.035) Urine Protein Negative (Negative) Urine Glucose (UA) Negative (Negative) Urine Ketones Negative (Negative) Urine Blood Negative (Negative) Urine Nitrite Negative (Negative) Urine Bilirubin Negative (Negative) Urine Urobilinogen <2.0 (<2.0) mg/dL Ur Leukocyte Esterase Negative (Negative) Urine HCG, Qual (Not Detectd) Disposition Clinical Impression: Vomiting, Diarrhea Disposition: HOME SELF-CARE Condition: Good Instructions (If sedation given, give patient instructions): Acute Nausea and Vomiting (ED), Acute Diarrhea (ED) Additional Instructions: Please use medication as discussed. Please follow-up with family doctor in the next 2 days.. Please return to emergency room if the symptoms increase or worsen or for any other concerns. Prescriptions: Ondansetron Odt [Zofran Odt] 4 mg PO Q8HR PRN 5 Days #15 tab PRN Reason: Vomiting Is patient prescribed a controlled substance at d/c from ED?: No Referrals: Nikia May MD [Primary Care Provider] - 1-2 days Time of Disposition: 15:07
[2019-09-20 15:08] VITALS: BP 125/78; PULSE 82; RESP 18; TEMP 97.8
== END 2019-09-20 15:16 | disposition home or self-care (01) ==
LOC: EC 12:48
DX: R11.10 Vomiting, unspecified (principal); R19.7 Diarrhea, unspecified; R10.12 Left upper quadrant pain; R10.812 Left upper quadrant abdominal tenderness; Z32.02 Encounter for pregnancy test, result negative; K21.9 Gastro-esophageal reflux disease without esophagitis; G40.909 Epilepsy, unspecified, not intractable, without status epilepticus; F31.9 Bipolar disorder, unspecified; F41.0 Panic disorder [episodic paroxysmal anxiety]; F20.9 Schizophrenia, unspecified; F17.200 Nicotine dependence, unspecified, uncomplicated; Z79.1 Long term (current) use of non-steroidal anti-inflammatories (NSAID); Z79.899 Other long term (current) drug therapy; Z88.7 Allergy status to serum and vaccine; Z90.49 Acquired absence of other specified parts of digestive tract
CPT/HCPCS: 36415; 80053; 82150; 83690; 85025; 81003; 81025; 99284; 96374; 96375; 96361; J2270; J2765

== ENCOUNTER 2019-09-22 03:50 | Emergency (ER) | payer OTHER ==
--- NOTE | 2019-09-22 03:54 | ED ---
Abdominal Pain HPI - General Stated Complaint: Abd Pain Time Seen by Provider: 09/22/19 03:53 - History of Present Illness Initial Comments: Najma is a 4-year-old female with history of recurrent pancreatitis as well as chronic gastritis who presents the emergency department today for reevaluation of epigastric abdominal pain. Patient was seen and evaluated about 3 days ago and which time her labs are unremarkable and she was discharged home. Patient states that since that time her pain has become progressively worse, she has had persistent nausea but no vomiting. She's been able to tolerate by mouth intake. She is having loose stools. She states that she is concerned she may be developing pancreatitis so she came back to the ER for reevaluation. - Related Data Home Medications Medication Instructions Recorded Confirmed Cyproheptadine HCl [Periactin] 4 mg PO DAILY PRN 02/29/16 09/20/19 Naproxen 500 mg PO BID 09/02/17 09/20/19 Gabapentin 1,200 mg PO TID 09/27/17 09/20/19 ARIPiprazole [Abilify] 10 mg PO HS 06/18/19 09/20/19 Albuterol Inhaler [Ventolin Hfa 2 puff INHALATION RT-Q6H PRN 06/18/19 09/20/19 Inhaler] Hyoscyamine Sulfate [Levsin] 0.125 mg PO DAILY PRN 06/18/19 09/20/19 Ondansetron HCl [Zofran] 4 mg PO Q8H PRN 06/18/19 09/20/19 lamoTRIgine [LaMICtal] 200 mg PO DAILY 06/18/19 09/20/19 Baclofen [Lioresal] 20 mg PO TID 09/20/19 09/20/19 Famotidine [Pepcid] 40 mg PO DAILY 09/20/19 09/20/19 Sertraline [Zoloft] 200 mg PO HS 09/20/19 09/20/19 Previous Rx's Medication Instructions Recorded Ondansetron Odt [Zofran Odt] 4 mg PO Q8HR PRN 5 Days #15 tab 09/20/19 Allergies Allergy/AdvReac Type Severity Reaction Status Date / Time Pertussis Vaccines Allergy Rash/Hives Verified 09/20/19 14:43 Review of Systems ROS Statement: Those systems with pertinent positive or pertinent negative responses have been documented in the HPI. ROS Other: All systems not noted in ROS Statement are negative. Past Medical History Past Medical History: Eye Disorder, Fibromyalgia, GERD/Reflux, Osteoarthritis (OA), Pneumonia, Seizure Disorder Additional Past Medical History / Comment(s): irregular menstrual cycles, epilepsy , insomnia, restless leg syndrome, chronic knee and back pain, migraines, resolved pneumonia in 2014, borderline panic disorder, intermittent explosive rage disorder. History of Any Multi-Drug Resistant Organisms: None Reported Past Surgical History: Cholecystectomy, Orthopedic Surgery Additional Past Surgical History / Comment(s): SEVERAL SCOPES ON RT KNEE, EGD 09/21/15 Past Anesthesia/Blood Transfusion Reactions: No Reported Reaction Past Psychological History: Anxiety, Bipolar, Depression, Panic Disorder, PTSD, Schizophrenia Smoking Status: Current every day smoker Past Alcohol Use History: Occasional Past Drug Use History: None Reported - Past Family History Mother Family Medical History: Hypertension Father History Unknown: Yes Family Medical History: Coronary Artery Disease (CAD) Additional Family Medical History / Comment(s): PT STATES FATHER WHEN SHE WAS VERY LITTLE- DOES NOT KNOW WHY HE Sister(s) Family Medical History: No Reported History General Exam - General Exam Comments Initial Comments: Physical Exam GENERAL: Patient is well-developed and well-nourished. Patient is nontoxic and well- hydrated and is in no distress. HENT: Normocephalic, Atraumatic. EYES: PERRL, EOMI PULMONARY: Unlabored respirations. No audible rales rhonchi or wheezing was noted. CARDIOVASCULAR: There is a regular rate and rhythm without any murmurs gallops or rubs. ABDOMEN: Soft with normal bowel sounds. Diffuse tenderness SKIN: Skin is clear with no lesions or rashes and otherwise unremarkable. : Deferred NEUROLOGIC: Patient is alert and oriented x3. Moving all extremities spontaneously MUSCULOSKELETAL: Normal extremities with adequate strength and full range of motion. No lower extremity swelling or edema. No calf tenderness. PSYCHIATRIC: Normal psychiatric evaluation. Course Vital Signs 09/22/19 09/22/19 03:52 06:13 Temperature 99 F Pulse Rate 87 85 Respiratory 18 18 Rate Blood Pressure 141/94 140/87 O2 Sat by Pulse 99 98 Oximetry Medical Decision Making - Medical Decision Making She was seen and evaluated, history is obtained from patient Patient is a 24-year-old female with chronic epigastric abdominal pain in the ER for evaluation. Patient is a CT evidence of pancreatitis in the past. Patient states this is An outside hospitals never here. Review the patient's medical record from the past 5 years reveals that she's had one episode of pancreatitis in 2016 confirm the labs and imaging. labs are normal, this was again discussed with patient was insistent on having a CT. Discussed the risks and benefits of CT. I advised the patient she should follow with her primary care physician and discuss possible outpatient MRI. Patient states this is an option for her because she does not have transported from the hospital. Computed tomography scan resulted with no acute findings. I advised the patient that endoscopy is diagnostic of gastritis rather than computed tomography scan. Patient complaining of persistent burning epigastric pain but declines anything offered including GI cocktail, pepcid, protonix. Advised patient that due to the chronicity of her pain I will not prescribe narcotics. Advised the patient to make further dietary changes that she reports she needs to meals daily I advised she should be multiple smaller meals and continue to avoid spicy acidic or greasy foods. Advised patient to contact her GI specialist to see if they have a appointment cancellations however patient states that due to transportation issues she has 73 days noticed about appointments therefore can't take short notice appointments. Patient requests I return to discuss with her. Patient was on for her mom. Patient is complaining to her mom that she wasn't being given pain medications for her pain. Patient has remained awake and alert and oriented with stableand tachycardia or any acute distress. Upon walking advised of the room throughout her stay the patient's been noted to be sitting playing on her phone. She is crying during my evaluation because she hasn't gotten pain medications. Patient reports she's been in agony for months and not being treated. Patient states that nothing the attempt works for her. I advised the patient was sorry for her plight but is nothing emergently while she needs follow-up with gastroenterology. - Lab Data Result diagrams: 09/22/19 04:44 09/22/19 04:44 Lab Results 09/22/19 09/22/19 09/22/19 Range/Units 04:44 04:44 04:44 WBC 9.9 (3.8-10.6) k/uL RBC 4.54 (3.80-5.40) m/uL Hgb 12.2 (11.4-16.0) gm/dL Hct 37.0 (34.0-46.0) % MCV 81.4 (80.0-100.0) fL MCH 27.0 (25.0-35.0) pg MCHC 33.1 (31.0-37.0) g/dL RDW 13.8 (11.5-15.5) % Plt Count 303 (150-450) k/uL Neutrophils % 73 % Lymphocytes % 21 % Monocytes % 4 % Eosinophils % 1 % Basophils % 0 % Neutrophils # 7.2 (1.3-7.7) k/uL Lymphocytes # 2.0 (1.0-4.8) k/uL Monocytes # 0.4 (0-1.0) k/uL Eosinophils # 0.1 (0-0.7) k/uL Basophils # 0.0 (0-0.2) k/uL Sodium 141 (137-145) mmol/L Potassium 4.3 (3.5-5.1) mmol/L Chloride 106 (98-107) mmol/L Carbon Dioxide 25 (22-30) mmol/L Anion Gap 10 mmol/L BUN 11 (7-17) mg/dL Creatinine 0.78 (0.52-1.04) mg/dL Est GFR (CKD-EPI)AfAm >90 (>60 ml/min/1.73 sqM) Est GFR (CKD-EPI)NonAf >90 (>60 ml/min/1.73 sqM) Glucose 101 H (74-99) mg/dL Calcium 9.4 (8.4-10.2) mg/dL Total Bilirubin 0.3 (0.2-1.3) mg/dL AST 17 (14-36) U/L ALT 18 (9-52) U/L Alkaline Phosphatase 117 (38-126) U/L Total Protein 7.8 (6.3-8.2) g/dL Albumin 4.5 (3.5-5.0) g/dL Lipase 60 (23-300) U/L Urine Color Light Yellow Urine Appearance Clear (Clear) Urine pH 6.0 (5.0-8.0) Ur Specific [place] 1.003 (1.001-1.035) Urine Protein Negative (Negative) Urine Glucose (UA) Negative (Negative) Urine Ketones Negative (Negative) Urine Blood Negative (Negative) Urine Nitrite Negative (Negative) Urine Bilirubin Negative (Negative) Urine Urobilinogen <2.0 (<2.0) mg/dL Ur Leukocyte Esterase Negative (Negative) Disposition Clinical Impression: Abdominal pain Disposition: HOME SELF-CARE Condition: Stable Instructions (If sedation given, give patient instructions): Abdominal Pain (ED) Additional Instructions: Continue the medications prescribed by your GI doctor Contact your GI doctor office to see if there are any appointment cancelations so you can get an appointment sooner Continue to eat a bland diet, multiple small meals a day Follow up with PCP and GI Return to the ER for any new or concerning symptoms Is patient prescribed a controlled substance at d/c from ED?: No Referrals: Nikia May MD [Primary Care Provider] - 1-2 days
[2019-09-22 03:55] VITALS: RESP 18; TEMP 99
[2019-09-22] MEDS ORDERED: SODIUM CHLORIDE 0.9% 1,000 ML IV STA (04:22)
[2019-09-22 04:52] LABS: Appearance,Urine Clear (Clear); Bilirubin,Urine Negative (Negative); Blood,Urine Negative (Negative); Color,Urine Light Yellow; Glucose,Urine (UA) Negative (Negative); Ketones,Urine Negative (Negative); Leukocyte Esterase,Urine Negative (Negative); Nitrite,Urine Negative (Negative); Protein,Urine Negative (Negative); Specific Gravity,Urine 1.003 (1.001-1.035); Urobilinogen,Urine <2.0 mg/dL (<2.0)
[2019-09-22 04:53] LABS: Basophils % (A) 0 %; Eosinophils # (A) 0.1 k/uL (0-0.7); Eosinophils % (A) 1 %; HGB 12.2 gm/dL (11.4-16.0); Lymphocytes % (A) 21 %; MCHC 33.1 g/dL (31.0-37.0); MCV 81.4 fL (80.0-100.0); Mean Platelet Volume 7.3; Monocytes # (A) 0.4 k/uL (0-1.0); Monocytes % (A) 4 %; Neutrophils # (A) 7.2 k/uL (1.3-7.7); Neutrophils % (A) 73 %; Platelet Count 303 k/uL (150-450); RBC 4.54 m/uL (3.80-5.40); RDW 13.8 % (11.5-15.5); WBC 9.9 k/uL (3.8-10.6)
[2019-09-22 05:04] LABS: ALT 18 U/L (9-52); AST 17 U/L (14-36); African American GFR (CKD) >90 (>60 ml/min/1.73 sqM); Albumin 4.5 g/dL (3.5-5.0); Alkaline Phosphatase 117 U/L (38-126); Anion Gap 10 mmol/L; Blood Urea Nitrogen 11 mg/dL (7-17); Calcium 9.4 mg/dL (8.4-10.2); Carbon Dioxide 25 mmol/L (22-30); Chloride 106 mmol/L (98-107); Glucose 101 mg/dL (74-99); Non-African American GFR(CKD) >90 (>60 ml/min/1.73 sqM); Potassium 4.3 mmol/L (3.5-5.1); Sodium 141 mmol/L (137-145); Total Bilirubin 0.3 mg/dL (0.2-1.3); Total Protein 7.8 g/dL (6.3-8.2)
[2019-09-22 06:14] VITALS: BP 140/87; PULSE 85
--- NOTE | 2019-09-22 06:15 | CT ---
EXAMINATION TYPE: CT abdomen pelvis w con DATE OF EXAM: 09/22/2019 COMPARISON: 09/02/2017 HISTORY: Patient presents with abdominal pain. H/x of pancreatitis. CT DLP: 2316.2 mGycm Automated exposure control for dose reduction was used. CONTRAST: Performed with IV Contrast, patient injected with 100mL mL of Isovue 300. Lung bases are clear. There is no pleural effusion. There is no pericardial effusion. Liver spleen pancreas appear normal. Bile ducts are not dilated. Stomach is intact. There is no adrenal mass. Kidneys show satisfactory contrast opacification. There is no hydronephrosi s. There is no retroperitoneal adenopathy. Bladder distends smoothly. There is no inguinal hernia. Ut erus is anteverted. There is no evidence of pelvic mass. There is no free fluid in the pelvis. There is no sign of thickened appendix. There is 2.3 cm cyst on the right ovary. There is no mesenteric edema. There is no ascites or free air. There is no sign of a bowel obstructio n. Lumbar spine is intact. Bony pelvis appears intact. IMPRESSION: No significant abnormality. There is almost complete clearing of the right side ovarian cysts compare d to old exam.
== END 2019-09-22 07:03 | disposition home or self-care (01) ==
LOC: EC 03:50
DX: R10.13 Epigastric pain (principal); K86.1 Other chronic pancreatitis; Z90.49 Acquired absence of other specified parts of digestive tract; F41.9 Anxiety disorder, unspecified; F31.9 Bipolar disorder, unspecified; F41.0 Panic disorder [episodic paroxysmal anxiety]; F43.10 Post-traumatic stress disorder, unspecified; F20.9 Schizophrenia, unspecified; M79.7 Fibromyalgia; K21.9 Gastro-esophageal reflux disease without esophagitis; M19.90 Unspecified osteoarthritis, unspecified site; G25.81 Restless legs syndrome; G40.909 Epilepsy, unspecified, not intractable, without status epilepticus; N83.201 Unspecified ovarian cyst, right side; F17.200 Nicotine dependence, unspecified, uncomplicated; Z88.7 Allergy status to serum and vaccine; Z79.1 Long term (current) use of non-steroidal anti-inflammatories (NSAID); Z79.899 Other long term (current) drug therapy; K29.50 Unspecified chronic gastritis without bleeding
CPT/HCPCS: 36415; 80053; 83690; 85025; 81003; 74177; 96360; 96361; 99284; Q9967

== ENCOUNTER 2020-10-12 07:06 | Observation (INO) | payer OTHER ==
[2020-10-12] MEDS ORDERED: SODIUM CHLORIDE 0.9% 1,000 ML IV STA ×2 (07:28)
[2020-10-12] MEDS ORDERED: ONDANSETRON 4 MG/2 ML VIAL IVP STA (07:28)
[2020-10-12] MEDS ORDERED: HYDROmorphone 0.5 MG/0.5 ML SYRINGE IVP STA ×3 (07:28→13:19)
--- NOTE | 2020-10-12 07:31 | ED ---
Abdominal Pain HPI - General Chief Complaint: Abdominal Pain Stated Complaint: Abd Pain Time Seen by Provider: 10/12/20 07:13 Source: patient, RN/MD Mode of arrival: EMS Limitations: no limitations - History of Present Illness Initial Comments: 25-year-old female with history of pancreatitis, gastritis, fibromyalgia, seizure disorder, GERD, osteoarthritis who was seen last week for similar complaints at [facility] per patient presenting today for cc of upper mid abdominal pain. pt states it has been present for the past 4 days associated with nausea, denies vomiting, fevers, diarrhea, constipation, chest pain, shortness of breath. Denies cough, leg swelling, headaches. Patient denies lower abdominal pain, . Patient denies any black tarry or bloody stools. Patient denies any known history of peptic ulcer, h. pylori infection. Patient states she was concerned she was having another bout of pancreatitis and presents emergency department for further evaluation. Brought in by EMS, walked in not on stretcher. Pt sees Dr. Granados and states she has an endoscopy scheduled for tomorrow. Pt states 4 days ago when symptoms were similar she had a CT scan at [facility] that was negative. - Related Data Home Medications Medication Instructions Recorded Confirmed Cyproheptadine HCl [Periactin] 4 mg PO DAILY PRN 02/29/16 10/12/20 Naproxen 500 mg PO BID PRN 09/02/17 10/12/20 Gabapentin 1,200 mg PO TID 09/27/17 10/12/20 Hyoscyamine Sulfate [Levsin] 0.125 mg PO Q6HR PRN 06/18/19 10/12/20 Ondansetron HCl [Zofran] 4 mg PO Q8H PRN 06/18/19 10/12/20 lamoTRIgine [LaMICtal] 200 mg PO DAILY 06/18/19 10/12/20 Sertraline [Zoloft] 200 mg PO HS 09/20/19 10/12/20 Cimetidine [Tagamet] 400 mg PO DAILY 10/06/20 10/12/20 cloNIDine HCL [Catapres] 0.1 mg PO TID 10/06/20 10/12/20 tiZANidine [Zanaflex] 8 mg PO Q4H 10/06/20 10/12/20 ARIPiprazole [Abilify] 15 mg PO HS 10/12/20 10/12/20 Allergies Allergy/AdvReac Type Severity Reaction Status Date / Time tetanus and diphtheria Allergy Unknown DYSPNEA, Verified 10/12/20 08:12 toxoids FEVER OF 106 Pertussis Vaccines Allergy DYSPNEA, Verified 10/12/20 08:12 FEVER OF 106 Review of Systems ROS Statement: Those systems with pertinent positive or pertinent negative responses have been documented in the HPI. ROS Other: All systems not noted in ROS Statement are negative. Past Medical History Past Medical History: Fibromyalgia, GERD/Reflux, Osteoarthritis (OA), Pneumonia, Seizure Disorder Additional Past Medical History / Comment(s): LAST SEIZURE APRIL 2020, RLS, CHRONIC KNEE AND BACK PAIN, MIGARINES , PNEUMONIA 2014., HX PANCREATITIS, IRR EGULAR HEART BEAT, UNSURE IF SHE HAS ASTHMA- APPT WITH REFLEXOLOGIST SCHEDULED., STOMACH PAIN. History of Any Multi-Drug Resistant Organisms: None Reported Past Surgical History: Cholecystectomy, Orthopedic Surgery Additional Past Surgical History / Comment(s): SEVERAL SCOPES ON RT KNEE, EGD , COLONOSCOPY Past Anesthesia/Blood Transfusion Reactions: No Reported Reaction Past Psychological History: Anxiety, Bipolar, Depression, Panic Disorder, PTSD, Schizophrenia Smoking Status: Current some day smoker Past Alcohol Use History: Occasional Past Drug Use History: None Reported - Past Family History Mother Family Medical History: Hypertension Father History Unknown: Yes Family Medical History: Coronary Artery Disease (CAD) Additional Family Medical History / Comment(s): . Sister(s) Family Medical History: No Reported History General Exam - General Exam Comments Initial Comments: General: The patient is awake and alert, in no distress Eye: +3 mm pupils are equal, round and reactive to light, extra-ocular movements are intact. No nystagmus. There is normal conjunctiva bilaterally. No signs of icterus. Ears, nose, mouth and throat: There are moist mucous membranes and no oral lesions. Neck: The neck is supple, there is no tenderness or JVD. Cardiovascular: There is a regular rate and rhythm. No murmur, rub or gallop is appreciated. Respiratory: Lungs are clear to auscultation, respirations are non-labored, br eath sounds are equal. No wheezes, stridor, rales, or rhonchi. Gastrointestinal: Soft, non-distended, epigastric tenderness to palpation of the abdomen, abdomen is without masses or organomegaly noted. There is no rebound or guarding present. Musculoskeletal: Normal ROM, no tenderness. Strength 5/5. Sensation intact. Radial pulses equal bilaterally 2+. Neurological: A&O x 3. CN II-XII intact grossly, There are no obvious motor or sensory deficits. Coordination appears grossly intact. Speech is normal. Skin: Skin is warm and dry and no rashes or lesions are noted. Psychiatric: Cooperative, appropriate mood & affect, normal judgment. Limitations: no limitations Course Vital Signs 10/12/20 10/12/20 10/12/20 07:13 08:21 09:00 Temperature 98.3 F Pulse Rate 112 H 113 H 118 H Respiratory 18 18 18 Rate Blood Pressure 142/100 140/89 146/86 O2 Sat by Pulse 100 100 100 Oximetry Medical Decision Making - Medical Decision Making cc epigastric pain ongoing x 1 week. seen at [facility] 4 days prior. pt states that t he CT was negative there. Record request pending. pt xr (-). pt labs stable. consulted Sarita granados who is agreeable to admission for intractable pain. he has pt scheduled for endoscopy tomorrow. - Lab Data Result diagrams: 10/12/20 08:02 10/12/20 08:02 Lab Results 10/12/20 10/12/20 10/12/20 Range/Units 08:02 08:02 08:02 WBC 8.3 (3.8-10.6) k/uL RBC 5.07 (3.80-5.40) m/uL Hgb 13.7 (11.4-16.0) gm/dL Hct 41.4 (34.0-46.0) % MCV 81.6 (80.0-100.0) fL MCH 27.0 (25.0-35.0) pg MCHC 33.0 (31.0-37.0) g/dL RDW 15.2 (11.5-15.5) % Plt Count 307 (150-450) k/uL MPV 6.8 Neutrophils % 73 % Lymphocytes % 20 % Monocytes % 4 % Eosinophils % 1 % Basophils % 0 % Neutrophils # 6.1 (1.3-7.7) k/uL Lymphocytes # 1.7 (1.0-4.8) k/uL Monocytes # 0.3 (0-1.0) k/uL Eosinophils # 0.0 (0-0.7) k/uL Basophils # 0.0 (0-0.2) k/uL Sodium (137-145) mmol/L Potassium (3.5-5.1) mmol/L Chloride (98-107) mmol/L Carbon Dioxide (22-30) mmol/L Anion Gap mmol/L BUN (7-17) mg/dL Creatinine (0.52-1.04) mg/dL Est GFR (CKD-EPI)AfAm (>60 ml/min/1.73 sqM) Est GFR (CKD-EPI)NonAf (>60 ml/min/1.73 sqM) Glucose (74-99) mg/dL Plasma Lactic Acid Claudy (0.7-2.0) mmol/L Calcium (8.4-10.2) mg/dL Total Bilirubin (0.2-1.3) mg/dL AST (14-36) U/L ALT (4-34) U/L Alkaline Phosphatase (38-126) U/L Total Protein (6.3-8.2) g/dL Albumin (3.5-5.0) g/dL Amylase (30-110) U/L Lipase (23-300) U/L Urine Color Light Yellow Urine Appearance Clear (Clear) Urine pH 6.0 (5.0-8.0) Ur Specific [place] 1.012 (1.001-1.035) Urine Protein Negative (Negative) Urine Glucose (UA) Negative (Negative) Urine Ketones 1+ H (Negative) Urine Blood Negative (Negative) Urine Nitrite Negative (Negative) Urine Bilirubin Negative (Negative) Urine Urobilinogen <2.0 (<2.0) mg/dL Ur Leukocyte Esterase Negative (Negative) Urine HCG, Qual Not Detected (Not Detectd) 10/12/20 10/12/20 Range/Units 08:02 08:02 WBC (3.8-10.6) k/uL RBC (3.80-5.40) m/uL Hgb (11.4-16.0) gm/dL Hct (34.0-46.0) % MCV (80.0-100.0) fL MCH (25.0-35.0) pg MCHC (31.0-37.0) g/dL RDW (11.5-15.5) % Plt Count (150-450) k/uL MPV Neutrophils % % Lymphocytes % % Monocytes % % Eosinophils % % Basophils % % Neutrophils # (1.3-7.7) k/uL Lymphocytes # (1.0-4.8) k/uL Monocytes # (0-1.0) k/uL Eosinophils # (0-0.7) k/uL Basophils # (0-0.2) k/uL Sodium 141 (137-145) mmol/L Potassium 4.2 (3.5-5.1) mmol/L Chloride 107 (98-107) mmol/L Carbon Dioxide 22 (22-30) mmol/L Anion Gap 12 mmol/L BUN 12 (7-17) mg/dL Creatinine 0.65 (0.52-1.04) mg/dL Est GFR (CKD-EPI)AfAm >90 (>60 ml/min/1.73 sqM) Est GFR (CKD-EPI)NonAf >90 (>60 ml/min/1.73 sqM) Glucose 115 H (74-99) mg/dL Plasma Lactic Acid Claudy 1.3 (0.7-2.0) mmol/L Calcium 9.6 (8.4-10.2) mg/dL Total Bilirubin 0.4 (0.2-1.3) mg/dL AST 22 (14-36) U/L ALT 25 (4-34) U/L Alkaline Phosphatase 122 (38-126) U/L Total Protein 7.9 (6.3-8.2) g/dL Albumin 4.6 (3.5-5.0) g/dL Amylase <30 L (30-110) U/L Lipase 40 (23-300) U/L Urine Color Urine Appearance (Clear) Urine pH (5.0-8.0) Ur Specific [place] (1.001-1.035) Urine Protein (Negative) Urine Glucose (UA) (Negative) Urine Ketones (Negative) Urine Blood (Negative) Urine Nitrite (Negative) Urine Bilirubin (Negative) Urine Urobilinogen (<2.0) mg/dL Ur Leukocyte Esterase (Negative) Urine HCG, Qual (Not Detectd) Disposition Clinical Impression: Intractable abdominal pain, Epigastric pain Disposition: ADMITTED IP TO THIS [facility] Condition: Stable Is patient prescribed a controlled substance at d/c from ED?: No Time of Disposition: 10:41 Decision to Admit Reason: Admit from EC Decision Time: 10:00
[2020-10-12 08:06] LABS: Appearance,Urine Clear (Clear); Basophils % (A) 0 %; Bilirubin,Urine Negative (Negative); Blood,Urine Negative (Negative); Color,Urine Light Yellow; Eosinophils % (A) 1 %; Glucose,Urine (UA) Negative (Negative); HCT 41.4 % (34.0-46.0); HGB 13.7 gm/dL (11.4-16.0); Ketones,Urine 1+ (Negative); Leukocyte Esterase,Urine Negative (Negative); Lymphocytes # (A) 1.7 k/uL (1.0-4.8); Lymphocytes % (A) 20 %; MCV 81.6 fL (80.0-100.0); Mean Platelet Volume 6.8; Monocytes # (A) 0.3 k/uL (0-1.0); Monocytes % (A) 4 %; Neutrophils # (A) 6.1 k/uL (1.3-7.7); Neutrophils % (A) 73 %; Nitrite,Urine Negative (Negative); Platelet Count 307 k/uL (150-450); Protein,Urine Negative (Negative); RBC 5.07 m/uL (3.80-5.40); RDW 15.2 % (11.5-15.5); Specific Gravity,Urine 1.012 (1.001-1.035); Urobilinogen,Urine <2.0 mg/dL (<2.0); WBC 8.3 k/uL (3.8-10.6)
[2020-10-12 08:35] LABS: ALT 25 U/L (4-34); AST 22 U/L (14-36); African American GFR (CKD) >90 (>60 ml/min/1.73 sqM); Albumin 4.6 g/dL (3.5-5.0); Alkaline Phosphatase 122 U/L (38-126); Amylase <30 U/L (30-110); Anion Gap 12 mmol/L; Blood Urea Nitrogen 12 mg/dL (7-17); Calcium 9.6 mg/dL (8.4-10.2); Carbon Dioxide 22 mmol/L (22-30); Chloride 107 mmol/L (98-107); Glucose 115 mg/dL (74-99); Lipase 40 U/L (23-300); Non-African American GFR(CKD) >90 (>60 ml/min/1.73 sqM); Potassium 4.2 mmol/L (3.5-5.1); Sodium 141 mmol/L (137-145); Total Bilirubin 0.4 mg/dL (0.2-1.3); Total Protein 7.9 g/dL (6.3-8.2)
[2020-10-12] MEDS ORDERED: PANTOPRAZOLE 40 MG/10 ML VIAL IVP STA (08:45)
[2020-10-12] MEDS ORDERED: LORazepam 1 MG TAB PO STA (08:57)
--- NOTE | 2020-10-12 09:07 | XR ---
EXAMINATION TYPE: XR abdomen acute w cxr DATE OF EXAM: 10/12/2020 COMPARISON: CT 09/22/2019, abdomen 01/09/2016 HISTORY: Nausea and abdomen pain TECHNIQUE: Supine, upright, and frontal chest views of the chest and abdomen are obtained. FINDINGS: There is stable elevation of right hemidiaphragm There is no evidence for pneumoperitoneum. The bowel gas pattern is unremarkable as there is air throughout nondilated small and large bowel. No sizeable air fluid levels. No mass effects are seen. Liver may be borderline enlarged. No unusual calcifications. IMPRESSION: Possible hepatomegaly, persistent elevation of right hemidiaphragm
[2020-10-12] MEDS ORDERED: DICYCLOMINE 20 MG TAB PO STA (09:13)
[2020-10-12] MEDS ORDERED: NALOXONE 0.4 MG/ML 1 ML VIAL IV PRN (09:53)
--- NOTE | 2020-10-12 14:29 | P.HPIM ---
History of Present Illness This is a pleasant 25 years old female with past medical history of fibromyalgia, GERD, S arthritis, seizure disorder, other psych illnesses including anxiety, bipolar, depression, panic disorder and PTSD and schizophrenia. Patient initially was admitted under service of Dr. Grant however, after contacted by Josey CARBONE from the emergency room stating that he wanted to be transferred to [facility] call admission. Patient has been complaining of from upper abdominal pain associated with nausea for about 4-5 days. No vomiting only nausea. No change in bowel movement. Her pain is in the epigastric about 10/10 when she came in o'clock sharp and crampy, radiating to the back. She thought she had recurrent pancreatitis as she had before about 9- 10 times such came to emergency room although she scheduled to have EGD tomorrow with Dr. Gill, when she came to [facility] with abdominal pain about 1 week ago She denies any other complaints, no chest pain or headache, no dyspnea, no numbness or weakness. No fever She smokes about 4 cigarettes per week, she consults and she can't quit easily and she states. Occasional alcohol. No illicit drugs She has history of multiple psychiatric disorders with anxiety, bipolar and depression, panic disorder and PTSD and schizophrenia, however although she feels some depression however these looks stable, she denies suicidal or homicidal ideation, no hallucination, no active issue up for patient. Patient looks calm and pleasant On admission she has mild tachycardia of 100-118, rest of vitals are stable Including CBC, BMP, liver enzymes and lipase and amylase were unremarkable. Urine analysis is unremarkable. Urine hCG is negative Acute abdominal series: Keely possible hepatomegaly persistent elevation of the hemidiaphragm An emergency room she got Bentyl, Dilaudid and Zofran. Preoperative test of blood for the patient and she declined stating that she notes she will be negative, risks and benefits are explained Review of Systems CONSTITUTIONAL: No fever, no malaise, no fatigue. HEENT: No recent visual problems or hearing problems. Denied any sore throat. CARDIOVASCULAR: No orthopnea, PND, no palpitations, no syncope. PULMONARY: No shortness of breath, no cough, no hemoptysis. GASTROINTESTINAL: No diarrhea, no vomiting. Normoactive bowel sounds. NEUROLOGICAL: No headaches, no weakness, no numbness. HEMATOLOGICAL: Denies any bleeding or petechiae. GENITOURINARY: Denies any burning micturition, frequency, or urgency. MUSCULOSKELETAL/RHEUMATOLOGICAL: Denies any joint pain, swelling, or any muscle pain. ENDOCRINE: Denies any polyuria or polydipsia. Past Medical History Past Medical History: Fibromyalgia, GERD/Reflux, Osteoarthritis (OA), Pneumonia, Seizure Disorder Additional Past Medical History / Comment(s): LAST SEIZURE APRIL 2020, RLS, CHRONIC KNEE AND BACK PAIN, MIGARINES , PNEUMONIA 2014., HX PANCREATITIS, IRREGULAR HEART BEAT, UNSURE IF SHE HAS ASTHMA- APPT WITH SORT MANAGER SCHEDULED., STOMACH PAIN. History of Any Multi-Drug Resistant Organisms: None Reported Past Surgical History: Cholecystectomy, Orthopedic Surgery Additional Past Surgical History / Comment(s): SEVERAL SCOPES ON RT KNEE, EGD , COLONOSCOPY. 12 back teeth removed Past Anesthesia/Blood Transfusion Reactions: No Reported Reaction Past Psychological History: Anxiety, Bipolar, Depression, Panic Disorder, PTSD, Schizophrenia Additional Psychological History / Comment(s): BORDERLINE PANIC DISORDER, INTERMITTENT EXPLOSIVE RAGE DISORDER. Smoking Status: Current some day smoker Past Alcohol Use History: Occasional Additional Past Alcohol Use History / Comment(s): STARTED SMOKING AGE 16(2010). SMOKES 4 CIGARETTES/WEEK Past Drug Use History: None Reported - Past Family History Mother Family Medical History: Hypertension Additional Family Medical History / Comment(s): crohns disease Father History Unknown: Yes Family Medical History: Coronary Artery Disease (CAD) Additional Family Medical History / Comment(s): . Sister(s) Family Medical History: No Reported History Medications and Allergies Home Medications Medication Instructions Recorded Confirmed Type Cyproheptadine HCl [Periactin] 4 mg PO DAILY PRN 02/29/16 10/12/20 History Naproxen 500 mg PO BID PRN 09/02/17 10/12/20 History Gabapentin 1,200 mg PO TID 09/27/17 10/12/20 History Hyoscyamine Sulfate [Levsin] 0.125 mg PO Q6HR PRN 06/18/19 10/12/20 History Ondansetron HCl [Zofran] 4 mg PO Q8H PRN 06/18/19 10/12/20 History lamoTRIgine [LaMICtal] 200 mg PO DAILY 06/18/19 10/12/20 History Sertraline [Zoloft] 200 mg PO HS 09/20/19 10/12/20 History Cimetidine [Tagamet] 400 mg PO DAILY 10/06/20 10/12/20 History cloNIDine HCL [Catapres] 0.1 mg PO TID 10/06/20 10/12/20 History tiZANidine [Zanaflex] 8 mg PO Q4H 10/06/20 10/12/20 History ARIPiprazole [Abilify] 15 mg PO HS 10/12/20 10/12/20 History Allergies Allergy/AdvReac Type Severity Reaction Status Date / Time tetanus and diphtheria Allergy Unknown DYSPNEA, Verified 10/12/20 08:12 toxoids FEVER OF 106 Pertussis Vaccines Allergy DYSPNEA, Verified 10/12/20 08:12 FEVER OF 106 Physical Exam Vitals: Vital Signs Temp Pulse Resp BP Pulse Ox 10/12/20 11:34 98.3 F 100 18 146/86 100 10/12/20 09:00 118 H 18 146/86 100 10/12/20 08:21 113 H 18 140/89 100 10/12/20 07:13 98.3 F 112 H 18 142/100 100 Intake and Output 10/11/20 10/12/20 10/12/20 22:59 06:59 14:59 Other: Weight 122.47 kg GENERAL: The patient is alert and oriented x3, not in any acute distress. Well developed, well nourished. HEENT: Pupils are round and equally reacting to light. EOMI. No scleral icterus. No conjunctival pallor. Normocephalic, atraumatic. No pharyngeal erythema. No thyromegaly. CARDIOVASCULAR: S1 and S2 present. No murmurs, rubs, or gallops. PULMONARY: Chest is clear to auscultation, no wheezing or crackles. ABDOMEN: Soft, nontender, nondistended, normoactive bowel sounds. No palpable organomegaly. MUSCULOSKELETAL: No joint swelling or deformity. EXTREMITIES: No cyanosis, clubbing, or pedal edema. NEUROLOGICAL: Gross neurological examination did not reveal any focal deficits. SKIN: No rashes. No petechiae Results CBC & Chem 7: 10/12/20 08:02 10/12/20 08:02 Labs: Abnormal Lab Results - Last 24 Hours (Table) 10/12/20 10/12/20 Range/Units 08:02 08:02 Glucose 115 H (74-99) mg/dL Amylase <30 L (30-110) U/L Urine Ketones 1+ H (Negative) Thrombosis Risk Factor Assmnt - Choose All That Apply Any of the Below Risk Factors Present?: Yes Each Factor Represents 1 point: Obesity (BMI >25) Other Risk Factors: No Other congenital or acquired thrombophilia - If yes, enter type in comment: No Thrombosis Risk Factor Assessment Total Risk Factor Score: 1 Thrombosis Risk Factor Assessment Level: Low Risk Assessment and Plan Assessment: Epigastric pain and tenderness Abdominal pain Possible hepatomegaly Fibromyalgia History of GERD History of osteoarthritis History of seizure disorder other psych illnesses including anxiety, bipolar, depression, panic disorder and PTSD and schizophrenia. Morbid obesity with BMI of 51 Plan: This is a pleasant 25 years old female who presents with abdominal pain and possible hepatomegaly. GI team were consulted and they're planning to do a scope endoscopy for her. Continue gentle hydration. Pain management Labs and medication were reviewed.. Continue same treatment. Continue with symptomatic treatment. Resume home medication. Monitor lytes and vitals. DVT and GI prophylaxis. Further recommendations depends on the clinical course of the patient DVT prophylaxis: Subcutaneous heparin GI Prophylaxis: Ppi Prognosis is guarded
[2020-10-12] MEDS: MORPHINE SULFATE 4 MG/ML SYRINGE IVP PRN ×3 (15:17→23:37)
[2020-10-12] MEDS: SODIUM CHLORIDE 0.9% 1,000 ML IV SCH (15:19)
--- NOTE | 2020-10-12 15:34 | P.CONS ---
History of Present Illness - Reason for Consult Consult date: 10/12/20 Abdominal pain Requesting physician: Vivienne Flores - Chief Complaint Abdominal pain - History of Present Illness 25-year-old female with a medical history significant for bipolar depression, PTSD, schizophrenia, GERD, fibromyalgia and seizure disorder who presented to [facility] due to complaints of abdominal pain. Patient reports persistent epigastric abdominal pain. Pain is sharp and persistent in nature. The patient takes hyoscyamine 4 times daily in the outpatient setting but reports that it did not help with the pain. She reports decreased oral intake secondary to the pain. Previously she had been seen at [facility] approximately 4 days ago by her report with a negative computed tomography scan at that time. She is also using Zofran for nausea at home. Previously she has undergone laparoscopic cholecystectomy in 10/2015. Last EGD was in 09/2015 significant for gastritis. X-ray of the abdomen was significant only for hepatomegaly with hemoglobin 13.2, platelet count 307,000, amylase less than 30, lipase 40, total bilirubin 0.4, alkaline phosphatase 122, AST 22 and ALT 25. She denies any signs or symptoms of GI bleeding or change in her bowel habits at this time. She is concerned as she reports a family history of Crohn's disease in her mother. Review of Systems REVIEW OF SYSTEMS: CONSTITUTIONAL: Denies any fevers, chills, weight change or fatigue. CARDIOVASCULAR: Denies any chest pain, palpitations high or low blood pressures RESPIRATORY: Denies any shortness of breath, hemoptysis or cough. GENITOURINARY: No dysuria or hematuria. MUSCULOSKELETAL: No weakness reported. SKIN: Denies any new rashes or lesions, jaundice or pallor. PSYCHIATRIC: Denies any depression or anxiety at this time but she does have a known history of PTSD, schizophrenia and bipolar depression. NEUROLOGY: Denies headache, denies any new focal deficits. EARS/NOSE/THROAT: No recent hearing change, congestion, nasal discharge or sore throat. EYES: No pain in eyes, discharge or change in vision. GASTROINTESTINAL: As per HPI. Past Medical History Past Medical History: Fibromyalgia, GERD/Reflux, Osteoarthritis (OA), Pneumonia, Seizure Disorder Additional Past Medical History / Comment(s): LAST SEIZURE APRIL 2020, RLS, CHRONIC KNEE AND BACK PAIN, MIGARINES , PNEUMONIA 2014., HX PANCREATITIS, IRREGULAR HEART BEAT, UNSURE IF SHE HAS ASTHMA- APPT WITH [employer] SCHEDULED., STOMACH PAIN. History of Any Multi-Drug Resistant Organisms: None Reported Past Surgical History: Cholecystectomy, Orthopedic Surgery Additional Past Surgical History / Comment(s): SEVERAL SCOPES ON RT KNEE, EGD , COLONOSCOPY. 12 back teeth removed Past Anesthesia/Blood Transfusion Reactions: No Reported Reaction Past Psychological History: Anxiety, Bipolar, Depression, Panic Disorder, PTSD, Schizophrenia Additional Psychological History / Comment(s): BORDERLINE PANIC DISORDER, INTERMITTENT EXPLOSIVE RAGE DISORDER. Smoking Status: Current some day smoker Past Alcohol Use History: Occasional Additional Past Alcohol Use History / Comment(s): STARTED SMOKING AGE 16(2010). SMOKES 4 CIGARETTES/WEEK Past Drug Use History: None Reported - Past Family History Mother Family Medical History: Hypertension Additional Family Medical History / Comment(s): crohns disease Father History Unknown: Yes Family Medical History: Coronary Artery Disease (CAD) Additional Family Medical History / Comment(s): . Sister(s) Family Medical History: No Reported History Medications and Allergies Home Medications Medication Instructions Recorded Confirmed Type Cyproheptadine HCl [Periactin] 4 mg PO DAILY PRN 02/29/16 10/12/20 History Naproxen 500 mg PO BID PRN 09/02/17 10/12/20 History Gabapentin 1,200 mg PO TID 09/27/17 10/12/20 History Hyoscyamine Sulfate [Levsin] 0.125 mg PO Q6HR PRN 06/18/19 10/12/20 History Ondansetron HCl [Zofran] 4 mg PO Q8H PRN 06/18/19 10/12/20 History lamoTRIgine [LaMICtal] 200 mg PO DAILY 06/18/19 10/12/20 History Sertraline [Zoloft] 200 mg PO HS 09/20/19 10/12/20 History Cimetidine [Tagamet] 400 mg PO DAILY 10/06/20 10/12/20 History cloNIDine HCL [Catapres] 0.1 mg PO TID 10/06/20 10/12/20 History tiZANidine [Zanaflex] 8 mg PO Q4H 10/06/20 10/12/20 History ARIPiprazole [Abilify] 15 mg PO HS 12/28/20 12/28/20 History Allergies Allergy/AdvReac Type Severity Reaction Status Date / Time tetanus and diphtheria Allergy Unknown DYSPNEA, Verified 10/12/20 08:12 toxoids FEVER OF 106 Pertussis Vaccines Allergy DYSPNEA, Verified 10/12/20 08:12 FEVER OF 106 Physical Exam Vitals: Vital Signs Temp Pulse Resp BP Pulse Ox 10/12/20 11:34 98.3 F 100 18 146/86 100 10/12/20 09:00 118 H 18 146/86 100 10/12/20 08:21 113 H 18 140/89 100 10/12/20 07:13 98.3 F 112 H 18 142/100 100 Intake and Output 10/11/20 10/12/20 10/12/20 22:59 06:59 14:59 Other: Weight 122.47 kg On physical examination, patient appears comfortable in no apparent distress. HEAD: Normocephalic, atraumatic. EYES: No scleral icterus. No conjunctival injection. MOUTH: No lesions, tongue midline. NECK: Trachea midline, no gross abnormalities. CHEST: Clear to auscultation with no wheezing or rhonchi appreciated. HEART: Regular rate and rhythm. ABDOMEN: Soft, obese and mildly tender to palpation. Bowel sounds are positive. No organomegaly. No guarding or rigidity. EXTREMITIES: No pedal edema. SKIN: No rashes, no jaundice. NEUROLOGIC: Alert and oriented x3. No focal deficits. Results CBC & Chem 7: 10/12/20 08:02 10/12/20 08:02 Labs: Abnormal Lab Results - Last 24 Hours (Table) 10/12/20 10/12/20 Range/Units 08:02 08:02 Glucose 115 H (74-99) mg/dL Amylase <30 L (30-110) U/L Urine Ketones 1+ H (Negative) Abdominal x-ray: report reviewed (X-ray abdomen with findings suggestive of hepatomegaly.) Assessment and Plan (1) Epigastric pain Narrative/Plan: 25-year-old female with multiple medical comorbidities including GERD who presents to the hospital with severe sharp epigastric abdominal pain which has been persistent for the past few weeks and worsening over the past 4-5 days. She reports computed tomography scan performed at outside hospital was negative. X-ray of the abdomen suggestive of hepatomegaly. Liver enzymes, amylase and lipase and hemoglobin all normal. Last EGD and pulse/2015 significant for gastritis and cholecystectomy in 2016. Unclear if this is related to her underlying fibromyalgia, uncontrolled reflux, peptic ulcer disease, or other etiology. Current Visit: Yes Status: Acute Code(s): R10.13 - EPIGASTRIC PAIN SNOMED Code(s): 62463932 (2) Intractable abdominal pain Current Visit: Yes Status: Acute Code(s): R10.9 - UNSPECIFIED ABDOMINAL PAIN SNOMED Code(s): 64932626 (3) GERD (gastroesophageal reflux disease) Current Visit: Yes Status: Acute Code(s): K21.9 - GASTRO-ESOPHAGEAL REFLUX DISEASE WITHOUT ESOPHAGITIS SNOMED Code(s): 852551254 Plan: Supportive care Okay for diet as tolerated Nothing by mouth after midnight Dicyclomine 20 mg 4 times a day added Protonix 40 mg twice a day added to Encourage ambulation Plan for EGD tomorrow for further evaluation X-ray of the abdomen performed Extensive discussion with the patient regarding symptoms and different possible etiologies of her pain, plan is to rule out peptic ulcer disease with EGD tomorrow, with all of the risks, benefits and possible complications explained to the patient at length and all of her questions answered to her satisfaction Thank you for allowing us to suspect in the care of the patient
[2020-10-12] MEDS: PANTOPRAZOLE 40 MG TABLET PO SCH (17:51)
[2020-10-12] MEDS: DICYCLOMINE 20 MG TAB PO SCH ×2 (17:51→19:14)
[2020-10-12] MEDS: tiZANidine 4 MG TAB PO SCH ×2 (18:24→19:14)
[2020-10-12] MEDS: GABAPENTIN 400 MG CAP PO SCH (19:12)
[2020-10-12] MEDS: cloNIDine HCL 0.1 MG TAB PO SCH (19:14)
[2020-10-12 19:59] VITALS: RESP 16
[2020-10-12] MEDS ORDERED: ARIPiprazole 15 MG TAB PO SCH (21:00)
[2020-10-12] MEDS ORDERED: SERTRALINE 100 MG TAB PO SCH (21:00)
[2020-10-13] MEDS: tiZANidine 4 MG TAB PO SCH ×3 (02:46→11:02)
[2020-10-13] MEDS: MORPHINE SULFATE 4 MG/ML SYRINGE IVP PRN ×2 (03:19→07:17)
[2020-10-13] MEDS: SODIUM CHLORIDE 0.9% 1,000 ML IV SCH (03:21)
[2020-10-13] MEDS: PANTOPRAZOLE 40 MG TABLET PO SCH (07:17)
[2020-10-13] MEDS: GABAPENTIN 400 MG CAP PO SCH (08:19)
[2020-10-13] MEDS: cloNIDine HCL 0.1 MG TAB PO SCH (08:19)
[2020-10-13] MEDS ORDERED: PROPOFOL 10 MG/ML 20 ML VIAL IV ONE (08:48)
[2020-10-13] MEDS ORDERED: LIDOCAINE 1% INJ 10MG/ML (20 ML MDV) ONE (08:48)
[2020-10-13] MEDS ORDERED: IV FLUID CONTINUATION 1,000 ML IV ONE (08:49)
[2020-10-13] MEDS ORDERED: lamoTRIgine 100 MG TAB PO SCH (09:00)
--- NOTE | 2020-10-13 09:17 | P.PCN ---
Date of Procedure: 10/13/20 Description of Procedure: BRIEF HISTORY: 25-year-old female with a medical history significant for bipolar depression, PTSD, schizophrenia, GERD, fibromyalgia and seizure disorder who presented to the hospital due to complaints of abdominal pain. Patient reports persistent epigastric abdominal pain. Pain is sharp and persistent in nature. The patient takes hyoscyamine 4 times daily in the outpatient setting but reports that it did not help with the pain. She reports decreased oral intake secondary to the pain. Previously she had been seen at [facility] approximately 4 days ago by her report with a negative computed tomography scan at that time. She is also using Zofran for nausea at home. Previously she has undergone laparoscopic cholecystectomy in 10/2015. Last EGD was in 09/2015 significant for gastritis. X-ray of the abdomen was significant only for hepatomegaly with hemoglobin 13.2, platelet count 307,000, amylase less than 30, lipase 40, total bilirubin 0.4, alkaline phosphatase 122, AST 22 and ALT 25. She denies any signs or symptoms of GI bleeding or change in her bowel habits at this time. She is concerned as she reports a family history of Crohn's disease in her mother. PROCEDURE PERFORMED: Esophagogastroduodenoscopy with biopsy. PREOPERATIVE DIAGNOSIS: Epigastric abdominal pain, GERD. ESTIMATED BLOOD LOSS: Minimal. IV sedation per anesthesia. PROCEDURE: After informed consent was obtained, the patient was brought into the endoscopy unit. IV sedation was administered by Anesthesia under continuous monitoring. Initially the Olympus GIF-190 video endoscope was inserted into the mouth. Esophagus intubated without any difficulty. It was gradually advanced into the stomach and duodenum and carefully examined. The bulb and the second part of the duodenum appeared normal, with biopsies taken. The scope at this time was withdrawn to the stomach, adequately insufflated with air, and upon careful examination, mucosa of the antrum, body, cardia and the fundus appeared normal, with moderate patchy erythema predominantly in the antrum and also in the body of the stomach suggestive of moderate gastritis with biopsies taken. The scope was then withdrawn into the esophagus. The GE junction was located at 36 cm from the incisors and biopsied. The esophagus appeared normal. There were no erosions or ulcerations seen and the patient tolerated the procedure well. IMPRESSION: 1. Moderate gastritis. 2. Biopsies of the antrum body, duodenum and GE junction. RECOMMENDATIONS: The findings of this examination were discussed with the patient. Okay for full liquid diet, advance as tolerated. Patient should be continued on Protonix twice daily, Carafate before meals at bedtime also added in the setting of moderate gastritis. Await pathology from biopsies. Patient is cleared for discharge from GI 1 otherwise medically stable.
[2020-10-13] MEDS: DICYCLOMINE 20 MG TAB PO SCH (09:57)
[2020-10-13 11:15] VITALS: BP 100/67; PULSE 76; TEMP 98.3
[2020-10-13] MEDS ORDERED: SUCRALFATE 1 GM TAB PO SCH (12:30)
--- NOTE | 2020-10-13 21:53 | DS ---
DISCHARGE SUMMARY DATE OF SERVICE: 10/13/2020 FINAL DIAGNOSES: 1. Epigastric pain secondary to acute gastritis. 2. Hepatomegaly. 3. Fibromyalgia. 4. Gastroesophageal reflux disease. 5. Degenerative joint disease. 6. Seizure disorder. 7. History of psychiatric illness, including anxiety, bipolar, depression, post- traumatic stress disorder and schizophrenia. 8. Morbid obesity with body mass index of 51. DISCHARGE DISPOSITION: The patient will be discharged in stable condition with guarded prognosis. HISTORY OF PRESENT ILLNESS: This 25-year-old woman with a past medical history of multiple medical problems was admitted with epigastric pain. The patient had an EGD that showed gastritis. She was treated symptomatically and improved significantly. On exam, vitals are stable. CARDIOVASCULAR SYSTEM: S1, S2 muffled. ABDOMEN: Soft. NERVOUS SYSTEM: No focal deficit. The patient was recommended to follow up with Gastroenterology, Dr. Grant, and her primary physician. DISCHARGE ADVICE AND MEDICATIONS: 1. Diet is cardiac. 2. Activity limited until followup. 3. Follow up with primary physician Dr. Nikia May in 1-2 days. 4. Follow up with Dr. Grant in one week. 5. Hold Naprosyn. 6. Abilify 15 mg at bedtime. 7. Catapres 0.1 t.i.d. 8. Gabapentin 1200 mg p.o. t.i.d. 9. Lamictal 200 mg p.o. daily. 10.Levsin 0.125 mg q.6 p.r.n. 11.Cyproheptadine 4 mg daily. 12.Tagamet 400 mg p.o. daily. 13.Zanaflex 8 mg q.4 hours p.r.n. 14.Zofran p.r.n. 15.Zoloft 200 mg at bedtime. 16.Carafate 1 gram before meals and at bedtime. 17.Protonix 40 mg p.o. b.i.d. Once again, the patient will be discharged in stable condition with guarded prognosis. MMODL / IJN: [id number] / MTDD
== END 2020-10-13 12:47 | disposition home or self-care (01) ==
LOC: EC 07:06 → 5NMEDONC 09:59 → INTOOBSV 09:59 → 5NMEDONC 11:29 → UNDODISIN 10-13 12:47
PROVIDERS: ADMIT Internal Medicine; ATTEND Internal Medicine
DX: K29.00 Acute gastritis without bleeding (principal); K29.50 Unspecified chronic gastritis without bleeding; R16.0 Hepatomegaly, not elsewhere classified; M79.7 Fibromyalgia; K21.9 Gastro-esophageal reflux disease without esophagitis; M19.90 Unspecified osteoarthritis, unspecified site; G40.909 Epilepsy, unspecified, not intractable, without status epilepticus; F41.9 Anxiety disorder, unspecified; F31.9 Bipolar disorder, unspecified; F41.0 Panic disorder [episodic paroxysmal anxiety]; F17.210 Nicotine dependence, cigarettes, uncomplicated; F43.10 Post-traumatic stress disorder, unspecified; F63.81 Intermittent explosive disorder; F20.9 Schizophrenia, unspecified; E66.01 Morbid (severe) obesity due to excess calories; Z68.43 Body mass index [BMI] 50.0-59.9, adult; Z87.01 Personal history of pneumonia (recurrent); G25.81 Restless legs syndrome; G89.4 Chronic pain syndrome; M25.569 Pain in unspecified knee; M54.9 Dorsalgia, unspecified; G43.909 Migraine, unspecified, not intractable, without status migrainosus; Z87.19 Personal history of other diseases of the digestive system; Z90.49 Acquired absence of other specified parts of digestive tract; Z98.890 Other specified postprocedural states; Z82.49 Family history of ischemic heart disease and other diseases of the circulatory system; Z83.79 Family history of other diseases of the digestive system; Z79.899 Other long term (current) drug therapy; Z88.7 Allergy status to serum and vaccine
CPT/HCPCS: 96376 ×3; 96375 ×3; 96361 ×2; 96374 ×2; 99284; 99285; 36415 ×2; 88305; 80053 ×2; 82150 ×2; 83605 ×2; 83690 ×2; 85025 ×2; 81003 ×2; 81025 ×2; 74022; 74018; 43239; G0378 ×2; J2270 ×2; J2405; J2001; J2704; C9113 ×2; J1170

== ENCOUNTER 2020-10-13 17:26 | Emergency (ER) | payer OTHER ==
[2020-10-13 17:33] VITALS: RESP 18
[2020-10-13] MEDS ORDERED: SODIUM CHLORIDE 0.9% 1,000 ML IV STA (18:20)
[2020-10-13] MEDS ORDERED: PANTOPRAZOLE 40 MG/10 ML VIAL IVP STA (18:20)
[2020-10-13] MEDS ORDERED: MAG HYDROX/AL HYDROX/SIMETH 30 ML, HYOSCYAMINE ELIXIR 10 ML, LIDOCAINE VISCOUS 2% 10 ML PO STA ×3 (18:21)
[2020-10-13] MEDS ORDERED: FAMOTIDINE 20 MG/2 ML VIAL IV STA (18:21)
[2020-10-13 19:11] LABS: Basophils % (A) 0 %; Eosinophils # (A) 0.1 k/uL (0-0.7); Eosinophils % (A) 1 %; HCT 36.6 % (34.0-46.0); HGB 12.5 gm/dL (11.4-16.0); Lymphocytes # (A) 1.8 k/uL (1.0-4.8); Lymphocytes % (A) 20 %; MCHC 34.1 g/dL (31.0-37.0); Mean Platelet Volume 6.7; Monocytes # (A) 0.3 k/uL (0-1.0); Monocytes % (A) 3 %; Neutrophils # (A) 6.7 k/uL (1.3-7.7); Neutrophils % (A) 74 %; Platelet Count 280 k/uL (150-450); RBC 4.46 m/uL (3.80-5.40); RDW 15.2 % (11.5-15.5)
[2020-10-13 19:13] LABS: Appearance,Urine Clear (Clear); Bilirubin,Urine Negative (Negative); Blood,Urine Negative (Negative); Color,Urine Light Yellow; Glucose,Urine (UA) Negative (Negative); Ketones,Urine Negative (Negative); Leukocyte Esterase,Urine Negative (Negative); Nitrite,Urine Negative (Negative); PH, Urine 5.5 (5.0-8.0); Protein,Urine Negative (Negative); Specific Gravity,Urine 1.008 (1.001-1.035); Urobilinogen,Urine <2.0 mg/dL (<2.0)
[2020-10-13 19:24] LABS: ALT 38 U/L (4-34); AST 38 U/L (14-36); African American GFR (CKD) >90 (>60 ml/min/1.73 sqM); Albumin 3.9 g/dL (3.5-5.0); Alkaline Phosphatase 99 U/L (38-126); Amylase 32 U/L (30-110); Anion Gap 4 mmol/L; Blood Urea Nitrogen 6 mg/dL (7-17); Calcium 9.1 mg/dL (8.4-10.2); Carbon Dioxide 26 mmol/L (22-30); Chloride 109 mmol/L (98-107); Glucose 108 mg/dL (74-99); Lipase 52 U/L (23-300); Non-African American GFR(CKD) >90 (>60 ml/min/1.73 sqM); Potassium 3.9 mmol/L (3.5-5.1); Sodium 139 mmol/L (137-145); Total Bilirubin 0.3 mg/dL (0.2-1.3); Total Protein 6.8 g/dL (6.3-8.2)
--- NOTE | 2020-10-13 19:40 | XR ---
EXAMINATION TYPE: XR KUB DATE OF EXAM: 10/13/2020 COMPARISON: 09/09/2019 INDICATION: Abdomen pain TECHNIQUE: Single view abdomen FINDINGS: There is normal colonic bowel gas present within the transverse colon. Psoas margins are normal. No organomegaly is present. No free air is identified. No mass effect is evident. Spleen may be somewhat prominent. IMPRESSION: 1. No suspicious free air is evident. 2. Slight splenomegaly may be present. CT could be performed if additional evaluation would be of [place] [facility].
--- NOTE | 2020-10-13 20:06 | ED ---
Abdominal Pain HPI - General Chief Complaint: Abdominal Pain Stated Complaint: Abd Pain Time Seen by Provider: 10/13/20 18:02 Source: patient, EMS Mode of arrival: EMS - History of Present Illness Initial Comments: Patient is a 25-year-old female presenting to the emergency Department with complaints of epigastric pain that has been going on for months now. Patient just had a endoscope performed by Dr. Grant this morning and was diagnosed with gastritis and discharged home. Patient states she called their office today stating that she was still in pain and was told to come to the ER. Patient states the pain is in her epigastric region, it is same as her normal pain. She denies any chest pain, no shortness of breath, no vomiting. She denies pain anywhere else on her abdomen. She denies any fever or chills. Patient states she was prescribed Protonix as well as Carafate and they have not been working. Patient denies being . She has no further complaints at this time. Upon arrival to the ER, her vital signs are stable. - Related Data Home Medications Medication Instructions Recorded Confirmed Cyproheptadine HCl [Periactin] 4 mg PO DAILY PRN 02/29/16 10/13/20 Gabapentin 1,200 mg PO TID 09/27/17 10/13/20 Hyoscyamine Sulfate [Levsin] 0.125 mg PO Q6HR PRN 06/18/19 10/13/20 Ondansetron HCl [Zofran] 4 mg PO Q8H PRN 06/18/19 10/13/20 lamoTRIgine [LaMICtal] 200 mg PO DAILY 06/18/19 10/13/20 Sertraline [Zoloft] 200 mg PO HS 09/20/19 10/13/20 Cimetidine [Tagamet] 400 mg PO DAILY 10/06/20 10/13/20 cloNIDine HCL [Catapres] 0.1 mg PO TID 10/06/20 10/13/20 tiZANidine [Zanaflex] 8 mg PO Q4H 10/06/20 10/13/20 ARIPiprazole [Abilify] 15 mg PO HS 10/12/20 10/13/20 Previous Rx's Medication Instructions Recorded Lidocaine Viscous 2% [Xylocaine 5 ml MUCOUS MEM BID PRN #100 ml 10/13/20 Viscous] Pantoprazole [Protonix] 40 mg PO AC-BID #60 tablet. 10/13/20 Sucralfate [Carafate] 1 gm PO ACHS #120 tab 10/13/20 Allergies Allergy/AdvReac Type Severity Reaction Status Date / Time tetanus and diphtheria Allergy Unknown DYSPNEA, Verified 10/13/20 18:43 toxoids FEVER OF 106 Pertussis Vaccines Allergy DYSPNEA, Verified 10/13/20 18:43 FEVER OF 106 Review of Systems ROS Statement: Those systems with pertinent positive or pertinent negative responses have been documented in the HPI. ROS Other: All systems not noted in ROS Statement are negative. 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 History of Any Multi-Drug Resistant Organisms: None Reported Past Surgical History: Cholecystectomy, Orthopedic Surgery Additional Past Surgical History / Comment(s): SEVERAL SCOPES ON RT KNEE, EGD , COLONOSCOPY. 12 back teeth removed Past Anesthesia/Blood Transfusion Reactions: No Reported Reaction Past Psychological History: Anxiety, Bipolar, Depression, Panic Disorder, PTSD, Schizophrenia Smoking Status: Current some day smoker Past Alcohol Use History: Occasional Past Drug Use History: None Reported - Past Family History Mother Family Medical History: Hypertension Additional Family Medical History / Comment(s): crohns disease Father History Unknown: Yes Family Medical History: Coronary Artery Disease (CAD) Additional Family Medical History / Comment(s): . Sister(s) Family Medical History: No Reported History General Exam - General Exam Comments Initial Comments: GENERAL: Patient is well-developed and well-nourished. Patient is nontoxic and in no acute distress. HEAD: Atraumatic, normocephalic. EYES: Pupils equal round and reactive to light, extraocular movements intact, sclera anicteric, conjunctiva are normal. Eyelids were unremarkable. ENT: TMs normal, nares patent, oropharynx clear without exudates. Moist mucous membranes. NECK: Normal range of motion, supple without lymphadenopathy or JVD. LUNGS: Unlabored respirations. Breath sounds clear to auscultation bilaterally and equal. No wheezes rales or rhonchi. HEART: Regular rate and rhythm without murmurs, rubs or gallops. ABDOMEN: Tender to palpation in epigastric region, no other areas of tenderness. Soft, normoactive bowel sounds. No guarding, no rebound. No masses appreciated. : Deferred MUSCULOSKELETAL: Normal extremities with adequate strength and normal range of motion, no pitting or edema. No clubbing or cyanosis. NEUROLOGICAL: Patient is alert and oriented x 3. Motor and sensory are also intact. Cranial nerves II through XII grossly intact. Symmetrical smile. Normal speech, normal gait. PSYCH: Normal mood, normal affect. SKIN: Warm, Dry, normal turgor, no rashes or lesions noted. Course Vital Signs 10/13/20 10/13/20 10/13/20 17:28 19:11 20:45 Temperature 98.9 F 98.4 F Pulse Rate 114 H 105 H Respiratory 18 18 Rate Blood Pressure 160/95 160/95 159/85 O2 Sat by Pulse 100 97 Oximetry Medical Decision Making - Medical Decision Making Patient is a 25-year-old female presenting for epigastric pain minutes been going on for months. She had EGD performed this morning by Dr. Grant and was diagnosed with gastritis. She is prescribed Carafate and Protonix which she has taken for 1-2 days. Patient presents again today for continued pain. Her vital signs are stable. Her pain is epigastric area, same as it always been. No vomiting. Labs are stable, no acute findings. Urine shows no evidence of infection, should hCG is not detected. I did do a KUB UA showed no acute process. Patient was given fluids, Protonix, Pepcid as well as GI cocktail. Immediately after receiving these medications she states she is still in pain and demanding something more for pain. I discussed with patient that she gets a lot of medications to try to work. Patient was reassessed about 1 hour later and was still complaining of severe pain however has been sitting comfortably in the ER. I discussed with patient that we have given her the correct medicines to treat her gastritis, narcotics will not improve her symptoms are not acceptable for gastritis. Patient started crying hysterically stating that she "doesn't want to go home and cry in pain." Dr. Grant is on-call today, I did speak with him and he was in agreement with this plan of care, he is okay with her going home. No narcotics or other pain medicines should be prescribed other than Tylenol. I discussed this with the patient. She continues to cry hys terically. I reinforced that she needs to continue with her Carafate, Protonix and I will prescribe her viscous lidocaine to help as well. She also needs to modify her diet, find stress relief. Patient is stable for discharge. She can follow up with her GI doctor. Return parameters were discussed with the patient she verbalized understanding. Case discussed with Dr. Seymour. - Lab Data Result diagrams: 10/13/20 18:57 10/13/20 18:57 Lab Results 10/13/20 10/13/20 10/13/20 Range/Units 18:57 18:57 18:57 WBC 9.0 (3.8-10.6) k/uL RBC 4.46 (3.80-5.40) m/uL Hgb 12.5 (11.4-16.0) gm/dL Hct 36.6 (34.0-46.0) % MCV 82.0 (80.0-100.0) fL MCH 28.0 (25.0-35.0) pg MCHC 34.1 (31.0-37.0) g/dL RDW 15.2 (11.5-15.5) % Plt Count 280 (150-450) k/uL MPV 6.7 Neutrophils % 74 % Lymphocytes % 20 % Monocytes % 3 % Eosinophils % 1 % Basophils % 0 % Neutrophils # 6.7 (1.3-7.7) k/uL Lymphocytes # 1.8 (1.0-4.8) k/uL Monocytes # 0.3 (0-1.0) k/uL Eosinophils # 0.1 (0-0.7) k/uL Basophils # 0.0 (0-0.2) k/uL Sodium (137-145) mmol/L Potassium (3.5-5.1) mmol/L Chloride (98-107) mmol/L Carbon Dioxide (22-30) mmol/L Anion Gap mmol/L BUN (7-17) mg/dL Creatinine (0.52-1.04) mg/dL Est GFR (CKD-EPI)AfAm (>60 ml/min/1.73 sqM) Est GFR (CKD-EPI)NonAf (>60 ml/min/1.73 sqM) Glucose (74-99) mg/dL Plasma Lactic Acid Claudy (0.7-2.0) mmol/L Calcium (8.4-10.2) mg/dL Total Bilirubin (0.2-1.3) mg/dL AST (14-36) U/L ALT (4-34) U/L Alkaline Phosphatase (38-126) U/L Total Protein (6.3-8.2) g/dL Albumin (3.5-5.0) g/dL Amylase (30-110) U/L Lipase (23-300) U/L Urine Color Light Yellow Urine Appearance Clear (Clear) Urine pH 5.5 (5.0-8.0) Ur Specific [place] 1.008 (1.001-1.035) Urine Protein Negative (Negative) Urine Glucose (UA) Negative (Negative) Urine Ketones Negative (Negative) Urine Blood Negative (Negative) Urine Nitrite Negative (Negative) Urine Bilirubin Negative (Negative) Urine Urobilinogen <2.0 (<2.0) mg/dL Ur Leukocyte Esterase Negative (Negative) Urine HCG, Qual Not Detected (Not Detectd) 10/13/20 10/13/20 Range/Units 18:57 18:57 WBC (3.8-10.6) k/uL RBC (3.80-5.40) m/uL Hgb (11.4-16.0) gm/dL Hct (34.0-46.0) % MCV (80.0-100.0) fL MCH (25.0-35.0) pg MCHC (31.0-37.0) g/dL RDW (11.5-15.5) % Plt Count (150-450) k/uL MPV Neutrophils % % Lymphocytes % % Monocytes % % Eosinophils % % Basophils % % Neutrophils # (1.3-7.7) k/uL Lymphocytes # (1.0-4.8) k/uL Monocytes # (0-1.0) k/uL Eosinophils # (0-0.7) k/uL Basophils # (0-0.2) k/uL Sodium 139 (137-145) mmol/L Potassium 3.9 (3.5-5.1) mmol/L Chloride 109 H (98-107) mmol/L Carbon Dioxide 26 (22-30) mmol/L Anion Gap 4 mmol/L BUN 6 L (7-17) mg/dL Creatinine 0.62 (0.52-1.04) mg/dL Est GFR (CKD-EPI)AfAm >90 (>60 ml/min/1.73 sqM) Est GFR (CKD-EPI)NonAf >90 (>60 ml/min/1.73 sqM) Glucose 108 H (74-99) mg/dL Plasma Lactic Acid Claudy 1.0 (0.7-2.0) mmol/L Calcium 9.1 (8.4-10.2) mg/dL Total Bilirubin 0.3 (0.2-1.3) mg/dL AST 38 H (14-36) U/L ALT 38 H (4-34) U/L Alkaline Phosphatase 99 (38-126) U/L Total Protein 6.8 (6.3-8.2) g/dL Albumin 3.9 (3.5-5.0) g/dL Amylase 32 (30-110) U/L Lipase 52 (23-300) U/L Urine Color Urine Appearance (Clear) Urine pH (5.0-8.0) Ur Specific [place] (1.001-1.035) Urine Protein (Negative) Urine Glucose (UA) (Negative) Urine Ketones (Negative) Urine Blood (Negative) Urine Nitrite (Negative) Urine Bilirubin (Negative) Urine Urobilinogen (<2.0) mg/dL Ur Leukocyte Esterase (Negative) Urine HCG, Qual (Not Detectd) Disposition Clinical Impression: Epigastric pain, Gastritis Disposition: HOME SELF-CARE Condition: Stable Instructions (If sedation given, give patient instructions): Gastritis (ED) Additional Instructions: Please return to the Emergency Department if symptoms worsen or any other c oncerns. Continue with your already prescribed Carafate and Protonix. You may also try lidocaine for pain, take as prescribed. Please follow-up with your regular doctor. Prescriptions: Lidocaine Viscous 2% [Xylocaine Viscous] 5 ml MUCOUS MEM BID PRN #100 ml PRN Reason: Pain Is patient prescribed a controlled substance at d/c from ED?: No Referrals: Nikia May MD [Primary Care Provider] - 1-2 days Gorge Grant MD [STAFF PHYSICIAN] - 1-2 days
[2020-10-13 20:59] VITALS: BP 159/85; PULSE 105; TEMP 98.4
== END 2020-10-13 21:04 | disposition home or self-care (01) ==
LOC: EC 17:26
DX: K29.70 Gastritis, unspecified, without bleeding (principal); G40.909 Epilepsy, unspecified, not intractable, without status epilepticus; F41.0 Panic disorder [episodic paroxysmal anxiety]; F31.9 Bipolar disorder, unspecified; F20.9 Schizophrenia, unspecified; F17.200 Nicotine dependence, unspecified, uncomplicated; Z79.899 Other long term (current) drug therapy; Z88.7 Allergy status to serum and vaccine; Z90.49 Acquired absence of other specified parts of digestive tract
CPT/HCPCS: 36415; 80053; 82150; 83605; 83690; 85025; 81003; 81025; 74018; 99284; 96374; 96375; 96361; C9113

== ENCOUNTER 2020-10-24 16:38 | Emergency (ER) | payer OTHER ==
--- NOTE | 2020-10-24 16:43 | ED ---
General Adult HPI - General Stated complaint: abd pain Time Seen by Provider: 10/24/20 16:43 - History of Present Illness Initial comments: 25-year-old female presenting to emergency Department with a chief complaint of abdominal pain. Patient reports she has been having ongoing abdominal pain for the past several years. Patient reports on the October 13 she was diagnosed with gastritis after having an EGD by . States she was started on Protonix and other antacid medication. Patient reports she can to emergency department the following day due to the recurrent pain. Patient reports she's had multiple CT of the abdomen and pelvis with no significant findings. Patient reports she was discharged on the from the emergency department with no pain medication. Patient reports several days ago she was at [facility] emergency department and was discharged after she was given pain medication. She does report nausea but no vomiting. 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 Denies and diarrhea constipation. Denies chest pain shortness of breath. - Related Data Home Medications Medication Instructions Recorded Confirmed Cyproheptadine HCl [Periactin] 4 mg PO DAILY PRN 02/29/16 10/13/20 Gabapentin 1,200 mg PO TID 09/27/17 10/13/20 Hyoscyamine Sulfate [Levsin] 0.125 mg PO Q6HR PRN 06/18/19 10/13/20 Ondansetron HCl [Zofran] 4 mg PO Q8H PRN 06/18/19 10/13/20 lamoTRIgine [LaMICtal] 200 mg PO DAILY 06/18/19 10/13/20 Sertraline [Zoloft] 200 mg PO HS 09/20/19 10/13/20 Cimetidine [Tagamet] 400 mg PO DAILY 10/06/20 10/13/20 cloNIDine HCL [Catapres] 0.1 mg PO TID 10/06/20 10/13/20 tiZANidine [Zanaflex] 8 mg PO Q4H 10/06/20 10/13/20 ARIPiprazole [Abilify] 15 mg PO HS 10/12/20 10/13/20 Previous Rx's Medication Instructions Recorded Lidocaine Viscous 2% [Xylocaine 5 ml MUCOUS MEM BID PRN #100 ml 10/13/20 Viscous] Pantoprazole [Protonix] 40 mg PO AC-BID #60 tablet. 10/13/20 Sucralfate [Carafate] 1 gm PO ACHS #120 tab 10/13/20 Allergies Allergy/AdvReac Type Severity Reaction Status Date / Time tetanus and diphtheria Allergy Unknown DYSPNEA, Verified 10/13/20 18:43 toxoids FEVER OF 106 Pertussis Vaccines Allergy DYSPNEA, Verified 10/13/20 18:43 FEVER OF 106 Review of Systems ROS Statement: Those systems with pertinent positive or pertinent negative responses have been documented in the HPI. ROS Other: All systems not noted in ROS Statement are negative. Past Medical History Past Medical History: Fibromyalgia, GERD/Reflux, Osteoarthritis (OA), Pneumonia, Seizure Disorder Additional Past Medical History / Comment(s): LAST SEIZURE APRIL 2020, RLS, CHRONIC KNEE AND BACK PAIN, MIGARINES , PNEUMONIA 2014., HX PANCREATITIS, I RREGULAR HEART BEAT, UNSURE IF SHE HAS ASTHMA- APPT WITH MORTGAGE BROKER SCHEDULED., STOMACH PAIN. History of Any Multi-Drug Resistant Organisms: None Reported Past Surgical History: Cholecystectomy, Orthopedic Surgery Additional Past Surgical History / Comment(s): SEVERAL SCOPES ON RT KNEE, EGD , COLONOSCOPY. 12 back teeth removed Past Anesthesia/Blood Transfusion Reactions: No Reported Reaction Past Psychological History: Anxiety, Bipolar, Depression, Panic Disorder, PTSD, Schizophrenia Smoking Status: Current some day smoker Past Alcohol Use History: Occasional Past Drug Use History: None Reported - Past Family History Mother Family Medical History: Hypertension Additional Family Medical History / Comment(s): crohns disease Father History Unknown: Yes Family Medical History: Coronary Artery Disease (CAD) Additional Family Medical History / Comment(s): . Sister(s) Family Medical History: No Reported History General Exam Limitations: no limitations General appearance: alert, in no apparent distress, obese Head exam: Present: atraumatic, normocephalic, normal inspection Eye exam: Present: normal appearance, PERRL, EOMI Pupils: Present: normal accommodation ENT exam: Present: normal exam, normal oropharynx, mucous membranes moist Neck exam: Present: normal inspection, full ROM. Absent: tenderness Respiratory exam: Present: normal lung sounds bilaterally. Absent: respiratory distress, wheezes, rales, rhonchi, stridor, chest wall tenderness Cardiovascular Exam: Present: regular rate, normal rhythm, normal heart sounds GI/Abdominal exam: Present: soft, tenderness (Epigastric abdominal tenderness, mild.), normal bowel sounds. Absent: distended, guarding, rebound, rigid Extremities exam: Present: normal inspection, full ROM, normal capillary refill. Absent: tenderness, pedal edema Back exam: Present: normal inspection, full ROM. Absent: tenderness, CVA tenderness (R), CVA tenderness (L) Neurological exam: Present: alert, oriented X3 Psychiatric exam: Present: normal affect, normal mood Skin exam: Present: warm, dry, intact, normal color Course Vital Signs 10/24/20 10/24/20 16:40 18:23 Temperature 98.9 F 98.4 F Pulse Rate 61 86 Respiratory 18 18 Rate Blood Pressure 130/88 132/78 O2 Sat by Pulse 98 98 Oximetry - Reevaluation(s) Reevaluation #1: 10/24/20 23:57 Medical record reviewed Medical Decision Making - Medical Decision Making 25-year-old female presenting to the emergency department with a chief complaint of abdominal pain. Patient was diagnosed with gastritis. Patient. Exam reveals epigastric abdominal pain. Patient is well-known to the emergency department for her frequent visits. Patient was given IV fluids and antiemetics. Patient was also given 2 rounds of GI cocktails with improvement in her symptoms. CBC CMP and UA are unremarkable. Patient is not . Patient will follow-up with her GI specialist. Return parameters discussed with patient was understanding and agreeable. Case discussed with physician. - Lab Data Result diagrams: 10/24/20 17:26 10/24/20 17:26 Lab Results 10/24/20 10/24/20 10/24/20 Range/Units 17:22 17:22 17:26 WBC 8.4 (3.8-10.6) k/uL RBC 4.34 (3.80-5.40) m/uL Hgb 11.9 (11.4-16.0) gm/dL Hct 35.3 (34.0-46.0) % MCV 81.4 (80.0-100.0) fL MCH 27.5 (25.0-35.0) pg MCHC 33.8 (31.0-37.0) g/dL RDW 15.5 (11.5-15.5) % Plt Count 287 (150-450) k/uL MPV 7.0 Neutrophils % 67 % Lymphocytes % 24 % Monocytes % 4 % Eosinophils % 1 % Basophils % 1 % Neutrophils # 5.7 (1.3-7.7) k/uL Lymphocytes # 2.0 (1.0-4.8) k/uL Monocytes # 0.4 (0-1.0) k/uL Eosinophils # 0.1 (0-0.7) k/uL Basophils # 0.1 (0-0.2) k/uL Sodium (137-145) mmol/L Potassium (3.5-5.1) mmol/L Chloride (98-107) mmol/L Carbon Dioxide (22-30) mmol/L Anion Gap mmol/L BUN (7-17) mg/dL Creatinine (0.52-1.04) mg/dL Est GFR (CKD-EPI)AfAm (>60 ml/min/1.73 sqM) Est GFR (CKD-EPI)NonAf (>60 ml/min/1.73 sqM) Glucose (74-99) mg/dL Calcium (8.4-10.2) mg/dL Total Bilirubin (0.2-1.3) mg/dL AST (14-36) U/L ALT (4-34) U/L Alkaline Phosphatase (38-126) U/L Total Protein (6.3-8.2) g/dL Albumin (3.5-5.0) g/dL Lipase (23-300) U/L Urine Color Yellow Urine Appearance Clear (Clear) Urine pH 6.5 (5.0-8.0) Ur Specific [place] 1.013 (1.001-1.035) Urine Protein Negative (Negative) Urine Glucose (UA) Negative (Negative) Urine Ketones Negative (Negative) Urine Blood Negative (Negative) Urine Nitrite Negative (Negative) Urine Bilirubin Negative (Negative) Urine Urobilinogen <2.0 (<2.0) mg/dL Ur Leukocyte Esterase Negative (Negative) Urine HCG, Qual Not Detected (Not Detectd) 10/24/20 Range/Units 17:26 WBC (3.8-10.6) k/uL RBC (3.80-5.40) m/uL Hgb (11.4-16.0) gm/dL Hct (34.0-46.0) % MCV (80.0-100.0) fL MCH (25.0-35.0) pg MCHC (31.0-37.0) g/dL RDW (11.5-15.5) % Plt Count (150-450) k/uL MPV Neutrophils % % Lymphocytes % % Monocytes % % Eosinophils % % Basophils % % Neutrophils # (1.3-7.7) k/uL Lymphocytes # (1.0-4.8) k/uL Monocytes # (0-1.0) k/uL Eosinophils # (0-0.7) k/uL Basophils # (0-0.2) k/uL Sodium 138 (137-145) mmol/L Potassium 4.6 (3.5-5.1) mmol/L Chloride 105 (98-107) mmol/L Carbon Dioxide 26 (22-30) mmol/L Anion Gap 7 mmol/L BUN 13 (7-17) mg/dL Creatinine 0.70 (0.52-1.04) mg/dL Est GFR (CKD-EPI)AfAm >90 (>60 ml/min/1.73 sqM) Est GFR (CKD-EPI)NonAf >90 (>60 ml/min/1.73 sqM) Glucose 96 (74-99) mg/dL Calcium 9.2 (8.4-10.2) mg/dL Total Bilirubin 0.2 (0.2-1.3) mg/dL AST 23 (14-36) U/L ALT 19 (4-34) U/L Alkaline Phosphatase 85 (38-126) U/L Total Protein 7.1 (6.3-8.2) g/dL Albumin 4.0 (3.5-5.0) g/dL Lipase 38 (23-300) U/L Urine Color Urine Appearance (Clear) Urine pH (5.0-8.0) Ur Specific [place] (1.001-1.035) Urine Protein (Negative) Urine Glucose (UA) (Negative) Urine Ketones (Negative) Urine Blood (Negative) Urine Nitrite (Negative) Urine Bilirubin (Negative) Urine Urobilinogen (<2.0) mg/dL Ur Leukocyte Esterase (Negative) Urine HCG, Qual (Not Detectd) Disposition Clinical Impression: Abdominal pain Disposition: HOME SELF-CARE Condition: Stable Instructions (If sedation given, give patient instructions): Abdominal Pain (ED) Additional Instructions: Avoid eating any acidic foods, carbonated drinks, alcohol, no dairy. Follow up with . Return to emergency department if symptoms worsen. Is patient prescribed a controlled substance at d/c from ED?: No Referrals: Nikia May MD [Primary Care Provider] - 1-2 days Time of Disposition: 18:06
[2020-10-24 16:45] VITALS: RESP 18
[2020-10-24] MEDS ORDERED: SODIUM CHLORIDE 0.9% 1,000 ML IV STA (17:01)
[2020-10-24] MEDS ORDERED: PANTOPRAZOLE 40 MG/10 ML VIAL IVP STA (17:02)
[2020-10-24] MEDS ORDERED: MAG HYDROX/AL HYDROX/SIMETH 30 ML, HYOSCYAMINE ELIXIR 10 ML, LIDOCAINE VISCOUS 2% 10 ML PO STA ×6 (17:02→18:05)
[2020-10-24 17:28] LABS: Appearance,Urine Clear (Clear); Bilirubin,Urine Negative (Negative); Blood,Urine Negative (Negative); Color,Urine Yellow; Glucose,Urine (UA) Negative (Negative); Ketones,Urine Negative (Negative); Leukocyte Esterase,Urine Negative (Negative); Nitrite,Urine Negative (Negative); PH, Urine 6.5 (5.0-8.0); Protein,Urine Negative (Negative); Specific Gravity,Urine 1.013 (1.001-1.035); Urobilinogen,Urine <2.0 mg/dL (<2.0)
[2020-10-24 17:32] LABS: Basophils # (A) 0.1 k/uL (0-0.2); Basophils % (A) 1 %; Eosinophils # (A) 0.1 k/uL (0-0.7); Eosinophils % (A) 1 %; HCT 35.3 % (34.0-46.0); HGB 11.9 gm/dL (11.4-16.0); Lymphocytes % (A) 24 %; MCH 27.5 pg (25.0-35.0); MCHC 33.8 g/dL (31.0-37.0); MCV 81.4 fL (80.0-100.0); Monocytes # (A) 0.4 k/uL (0-1.0); Monocytes % (A) 4 %; Neutrophils # (A) 5.7 k/uL (1.3-7.7); Neutrophils % (A) 67 %; Platelet Count 287 k/uL (150-450); RBC 4.34 m/uL (3.80-5.40); RDW 15.5 % (11.5-15.5); WBC 8.4 k/uL (3.8-10.6)
[2020-10-24 17:52] LABS: ALT 19 U/L (4-34); AST 23 U/L (14-36); African American GFR (CKD) >90 (>60 ml/min/1.73 sqM); Alkaline Phosphatase 85 U/L (38-126); Anion Gap 7 mmol/L; Blood Urea Nitrogen 13 mg/dL (7-17); Calcium 9.2 mg/dL (8.4-10.2); Carbon Dioxide 26 mmol/L (22-30); Chloride 105 mmol/L (98-107); Glucose 96 mg/dL (74-99); Lipase 38 U/L (23-300); Non-African American GFR(CKD) >90 (>60 ml/min/1.73 sqM); Potassium 4.6 mmol/L (3.5-5.1); Sodium 138 mmol/L (137-145); Total Bilirubin 0.2 mg/dL (0.2-1.3); Total Protein 7.1 g/dL (6.3-8.2)
[2020-10-24 18:24] VITALS: BP 132/78; PULSE 86; TEMP 98.4
== END 2020-10-24 18:24 | disposition home or self-care (01) ==
LOC: EC 16:38
DX: K29.70 Gastritis, unspecified, without bleeding (principal); F41.9 Anxiety disorder, unspecified; F31.9 Bipolar disorder, unspecified; F20.9 Schizophrenia, unspecified; E66.9 Obesity, unspecified; G40.909 Epilepsy, unspecified, not intractable, without status epilepticus; K21.9 Gastro-esophageal reflux disease without esophagitis; F17.200 Nicotine dependence, unspecified, uncomplicated; Z79.899 Other long term (current) drug therapy; Z88.7 Allergy status to serum and vaccine; Z90.49 Acquired absence of other specified parts of digestive tract; Z68.43 Body mass index [BMI] 50.0-59.9, adult
CPT/HCPCS: 36415; 80053; 83690; 85025; 81003; 81025; 99284; 96374; 96361; C9113

== ENCOUNTER 2023-05-28 13:43 | Emergency (ER) | payer OTHER ==
[2023-05-28 13:54] VITALS: TEMP 99
[2023-05-28] MEDS ORDERED: SODIUM CHLORIDE 0.9% 1,000 ML IV STA (14:10)
[2023-05-28] MEDS ORDERED: SODIUM CHLORIDE 0.9% 500 ML 500 ML IV STA (14:10)
[2023-05-28] MEDS ORDERED: KETOROLAC 15 MG/ML 1 ML VIAL IVP STA (14:10)
[2023-05-28] MEDS ORDERED: METOCLOPRAMIDE 5 MG/ML 2 ML VIAL IVP STA (14:10)
[2023-05-28 15:15] LABS: Basophils % (A) 0 %; Eosinophils # (A) 0.2 k/uL (0-0.7); Eosinophils % (A) 1 %; HCT 42.1 % (34.0-46.0); HGB 14.2 gm/dL (11.4-16.0); Lymphocytes # (A) 2.4 k/uL (1.0-4.8); Lymphocytes % (A) 14 %; MCH 28.5 pg (25.0-35.0); MCHC 33.6 g/dL (31.0-37.0); MCV 84.7 fL (80.0-100.0); Mean Platelet Volume 7.4; Monocytes # (A) 0.6 k/uL (0-1.0); Monocytes % (A) 3 %; Neutrophils # (A) 13.2 k/uL (1.3-7.7); Neutrophils % (A) 80 %; Platelet Count 381 k/uL (150-450); RBC 4.98 m/uL (3.80-5.40); RDW 13.7 % (11.5-15.5); WBC 16.5 k/uL (3.8-10.6)
--- NOTE | 2023-05-28 15:27 | ED ---
General Adult HPI - General Chief complaint: Nausea/Vomiting/Diarrhea Stated complaint: Dizziness Time Seen by Provider: 05/28/23 14:02 Source: patient, EMS, RN notes reviewed Mode of arrival: EMS Limitations: no limitations - History of Present Illness Initial comments: This a 27-year-old female presents emergency Department chief complaint of nausea vomiting. Patient states she has history of gastroparesis, ongoing psychiatric and GI issues. Patient states she does ache THC. Patient states that she usually takes Zofran but states is not helping this time. She denies any chills. Patient with a localized abdominal pain. Patient reportedly had heart rate in the 30s and she's been complaining of dizziness for over 24 hours. Patient was given to him by EMS secondary to her heart rate she denies some different after atropine. Patient denies current headache denies any low back pain. - Related Data Home Medications Medication Instructions Recorded Confirmed Cyproheptadine HCl [Periactin] 4 mg PO DAILY PRN 02/29/16 10/13/20 Gabapentin 1,200 mg PO TID 09/27/17 10/13/20 Hyoscyamine Sulfate [Levsin] 0.125 mg PO Q6HR PRN 06/18/19 10/13/20 lamoTRIgine [LaMICtal] 200 mg PO DAILY 06/18/19 10/13/20 ondansetron HCL [Zofran] 4 mg PO Q8H PRN 06/18/19 10/13/20 Sertraline [Zoloft] 200 mg PO HS 09/20/19 10/13/20 Cimetidine [Tagamet] 400 mg PO DAILY 10/06/20 10/13/20 cloNIDine HCL [Catapres] 0.1 mg PO TID 10/06/20 10/13/20 tiZANidine [Zanaflex] 8 mg PO Q4H 10/06/20 10/13/20 ARIPiprazole [Abilify] 15 mg PO HS 10/12/20 10/13/20 Previous Rx's Medication Instructions Recorded Lidocaine Viscous 2% [Xylocaine 5 ml MUCOUS MEM BID PRN #100 ml 10/13/20 Viscous] Pantoprazole [Protonix] 40 mg PO AC-BID #60 tablet. 10/13/20 Sucralfate [Carafate] 1 gm PO ACHS #120 tab 10/13/20 Allergies Allergy/AdvReac Type Severity Reaction Status Date / Time tetanus and diphtheria Allergy Unknown DYSPNEA, Verified 05/28/23 13:55 toxoids FEVER OF 106 Pertussis Vaccines Allergy DYSPNEA, Verified 05/28/23 13:55 FEVER OF 106 Review of Systems ROS Statement: Those systems with pertinent positive or pertinent negative responses have been documented in the HPI. ROS Other: All systems not noted in ROS Statement are negative. Past Medical History Past Medical History: Fibromyalgia, GERD/Reflux, Osteoarthritis (OA), Pneumonia, Seizure Disorder Additional Past Medical History / Comment(s): LAST SEIZURE APRIL 2020, RLS, CHRONIC KNEE AND BACK PAIN, MIGARINES , PNEUMONIA 2014., HX PANCREATITIS, IRREGULAR HEART BEAT, UNSURE IF SHE HAS ASTHMA- APPT WITH [employer]ER SCHED ULED., STOMACH PAIN. History of Any Multi-Drug Resistant Organisms: None Reported Past Surgical History: Cholecystectomy, Orthopedic Surgery Additional Past Surgical History / Comment(s): SEVERAL SCOPES ON RT KNEE, EGD , COLONOSCOPY. 12 back teeth removed Past Anesthesia/Blood Transfusion Reactions: No Reported Reaction Past Psychological History: Anxiety, Bipolar, Depression, Panic Disorder, PTSD, Schizophrenia Smoking Status: Former smoker Past Alcohol Use History: None Reported Past Drug Use History: Marijuana - Past Family History Mother Family Medical History: Hypertension Additional Family Medical History / Comment(s): crohns disease Father History Unknown: Yes Family Medical History: Coronary Artery Disease (CAD) Additional Family Medical History / Comment(s): . Sister(s) Family Medical History: No Reported History General Exam Limitations: no limitations General appearance: alert, in no apparent distress Head exam: Present: atraumatic, normocephalic, normal inspection Eye exam: Present: normal appearance, PERRL, EOMI. Absent: scleral icterus, conjunctival injection, periorbital swelling ENT exam: Present: normal exam, normal oropharynx, mucous membranes moist Neck exam: Present: normal inspection, full ROM. Absent: tenderness, meningismus, lymphadenopathy Respiratory exam: Present: normal lung sounds bilaterally. Absent: respiratory distress, wheezes, rales, rhonchi, stridor Cardiovascular Exam: Present: regular rate, normal rhythm, normal heart sounds. Absent: systolic murmur, diastolic murmur, rubs, gallop, clicks Neurological exam: Present: alert, oriented X3, CN II-XII intact, reflexes normal. Absent: motor sensory deficit Skin exam: Present: warm, dry, intact, normal color. Absent: rash Course Vital Signs 05/28/23 05/28/23 13:44 15:33 Temperature 99.0 F Pulse Rate 70 59 L Respiratory 18 16 Rate Blood Pressure 178/121 127/67 O2 Sat by Pulse 99 99 Oximetry EKG Findings - EKG Comments: EKG Findings:: EKG performed at 14:19 normal sinus rhythm rate of 66 CA 161/92 QT status QTC 420/434 - EKG Results: EKG: interpreted by PAMELA Medical Decision Making - Medical Decision Making Was pt. sent in by a medical professional or institution (, PA, COMMERCIAL PROJECT MANAGER, urgent care, hospital, or senior living...) When possible be specific @ -No Did you speak to anyone other than the patient for history (EMS, parent, family, police, friend...)? What history was obtained from this source @ -No Did you review nursing and triage notes (agree or disagree)? Why? @ -I reviewed and agree with nursing and triage notes Were old charts reviewed (outside hosp., previous admission, EMS record, old EKG, old radiological studies, urgent care reports/EKG's, senior living records)? Report findings @ -. Laboratory studies from prior visits Differential Diagnosis (chest pain, altered mental status, abdominal pain women, abdominal pain men, vaginal bleeding, weakness, fever, dyspnea, syncope, headache, dizziness, GI bleed, back pain, seizure, CVA, palpatations, mental health, musculoskeletal)? @ -[Differential Abdominal Pain Women: Appendicitis, Cholecystitis, diverticulosis, ischemic bowel, pancreatitis, hepatitis, UTI, gastroenteritis, AAA, incarcerated hernia, bowel obstruction, constipation, inflammatory bowel, hepatitis, peptic ulcer disease, splenic infarction, perforated viscus, vulvitis, ovarian torsion, PID, kidney stone, placenta abruption, this is not meant to be an all-inclusive list EKG interpreted by me (3pts min.). @ -As above X-rays interpreted by me (1pt min.). @ -None done CT interpreted by me (1pt min.). @ -None done U/S interpreted by me (1pt. min.). @ -None done What testing was considered but not performed or refused? (CT, X-rays, U/S, labs)? Why? @ -None What meds were considered but not given or refused? Why? @ -None Did you discuss the management of the patient with other professionals (professionals i.e. , PA, COMMERCIAL PROJECT MANAGER, lab, RT, psych nurse, social media marketer, expressive music therapist, teacher, enforcement officer, senior case manager)? Give summary @ -No Was smoking cessation discussed for >3mins.? @ -No Was critical care preformed (if so, how long)? @ -No Were there social determinants of health that impacted care today? How? (Homeles sness, low income, unemployed, alcoholism, drug addiction, transportation, low edu. Level, literacy, decrease access to med. care, fci, rehab)? @ -No Was there de-escalation of care discussed even if they declined (Discuss DNR or withdrawal of care, Hospice)? DNR status @ -No What co-morbidities impacted this encounter? (DM, HTN, Smoking, COPD, CAD, Cancer, CVA, ARF, Chemo, Hep., AIDS, mental health diagnosis, sleep apnea, morbid obesity)? @ - gastroparesis, hypertension Was patient admitted / discharged? Hospital course, mention meds given and route, prescriptions, significant lab abnormalities, going to OR and other pertinent info. @ -Discharge patient feels greatly improved at this time. Patient is well- hydrated. Patient had no bradycardia parameters are essentially unremarkable. Patient states is a chronic issue and she feels comfortable with discharge. Undiagnosed new problem with uncertain prognosis? @ -No Drug Therapy requiring intensive monitoring for toxicity (Heparin, Nitro, Insu briseida, Cardizem)? @ -No Were any procedures done? @ -No Diagnosis/symptom? @ -Nausea vomiting, gastroparesis Acute, or Chronic, or Acute on Chronic? @ -Acute on chronic Uncomplicated (without systemic symptoms) or Complicated (systemic symptoms)? @ -Uncomplicated Side effects of treatment? @ -No Exacerbation, Progression, or Severe Exacerbation? @ -No Poses a threat to life or bodily function? How? (Chest pain, USA, CT, pneumonia, PE, COPD, DKA, ARF, appy, cholecystitis, CVA, Diverticulitis, Homicidal, Suicidal, threat to staff... and all critical care pts) @ -No - Lab Data Result diagrams: 05/28/23 14:36 05/28/23 14:36 Lab Results 05/28/23 05/28/23 05/28/23 Range/Units 14:36 14:36 14:36 WBC 16.5 H (3.8-10.6) k/uL RBC 4.98 (3.80-5.40) m/uL Hgb 14.2 (11.4-16.0) gm/dL Hct 42.1 (34.0-46.0) % MCV 84.7 (80.0-100.0) fL MCH 28.5 (25.0-35.0) pg MCHC 33.6 (31.0-37.0) g/dL RDW 13.7 (11.5-15.5) % Plt Count 381 (150-450) k/uL MPV 7.4 Neutrophils % 80 % Lymphocytes % 14 % Monocytes % 3 % Eosinophils % 1 % Basophils % 0 % Neutrophils # 13.2 H (1.3-7.7) k/uL Lymphocytes # 2.4 (1.0-4.8) k/uL Monocytes # 0.6 (0-1.0) k/uL Eosinophils # 0.2 (0-0.7) k/uL Basophils # 0.0 (0-0.2) k/uL Sodium (137-145) mmol/L Potassium (3.5-5.1) mmol/L Chloride (98-107) mmol/L Carbon Dioxide (22-30) mmol/L Anion Gap mmol/L BUN (7-17) mg/dL Creatinine (0.52-1.04) mg/dL Est GFR (CKD-EPI)AfAm (>60 ml/min/1.73 sqM) Est GFR (CKD-EPI)NonAf (>60 ml/min/1.73 sqM) Glucose (74-99) mg/dL Calcium (8.4-10.2) mg/dL Magnesium (1.6-2.3) mg/dL Total Bilirubin (0.2-1.3) mg/dL AST (14-36) U/L ALT (4-34) U/L Alkaline Phosphatase (38-126) U/L Troponin I (0.000-0.034) ng/mL Total Protein (6.3-8.2) g/dL Albumin (3.5-5.0) g/dL Amylase (30-110) U/L Lipase (23-300) U/L Urine Color Yellow Urine Appearance Clear (Clear) Urine pH 6.0 (5.0-8.0) Ur Specific [place] 1.017 (1.001-1.035) Urine Protein Negative (Negative) Urine Glucose (UA) Negative (Negative) Urine Ketones Negative (Negative) Urine Blood Negative (Negative) Urine Nitrite Negative (Negative) Urine Bilirubin Negative (Negative) Urine Urobilinogen <2.0 (<2.0) mg/dL Ur Leukocyte Esterase Negative (Negative) Urine HCG, Qual Not Detected (Not Detectd) Urine Opiates Screen (NotDetected) Ur Oxycodone Screen (NotDetected) Urine Methadone Screen (NotDetected) Ur Propoxyphene Screen (NotDetected) Ur Barbiturates Screen (NotDetected) U Tricyclic Antidepress (NotDetected) Ur Phencyclidine Scrn (NotDetected) Ur Amphetamines Screen (NotDetected) U Methamphetamines Scrn (NotDetected) U Benzodiazepines Scrn (NotDetected) Urine Cocaine Screen (NotDetected) U Marijuana (THC) Screen (NotDetected) Serum Alcohol mg/dL 05/28/23 05/28/23 05/28/23 Range/Units 14:36 14:36 14:36 WBC (3.8-10.6) k/uL RBC (3.80-5.40) m/uL Hgb (11.4-16.0) gm/dL Hct (34.0-46.0) % MCV (80.0-100.0) fL MCH (25.0-35.0) pg MCHC (31.0-37.0) g/dL RDW (11.5-15.5) % Plt Count (150-450) k/uL MPV Neutrophils % % Lymphocytes % % Monocytes % % Eosinophils % % Basophils % % Neutrophils # (1.3-7.7) k/uL Lymphocytes # (1.0-4.8) k/uL Monocytes # (0-1.0) k/uL Eosinophils # (0-0.7) k/uL Basophils # (0-0.2) k/uL Sodium 136 L (137-145) mmol/L Potassium 5.1 (3.5-5.1) mmol/L Chloride 101 (98-107) mmol/L Carbon Dioxide 22 (22-30) mmol/L Anion Gap 13 mmol/L BUN 15 (7-17) mg/dL Creatinine 0.81 (0.52-1.04) mg/dL Est GFR (CKD-EPI)AfAm >90 (>60 ml/min/1.73 sqM) Est GFR (CKD-EPI)NonAf >90 (>60 ml/min/1.73 sqM) Glucose 135 H (74-99) mg/dL Calcium 9.8 (8.4-10.2) mg/dL Magnesium 1.9 (1.6-2.3) mg/dL Total Bilirubin 0.3 (0.2-1.3) mg/dL AST 23 (14-36) U/L ALT 19 (4-34) U/L Alkaline Phosphatase 132 H (38-126) U/L Troponin I <0.012 (0.000-0.034) ng/mL Total Protein 7.7 (6.3-8.2) g/dL Albumin 4.2 (3.5-5.0) g/dL Amylase 32 (30-110) U/L Lipase 22 L (23-300) U/L Urine Color Urine Appearance (Clear) Urine pH (5.0-8.0) Ur Specific [place] (1.001-1.035) Urine Protein (Negative) Urine Glucose (UA) (Negative) Urine Ketones (Negative) Urine Blood (Negative) Urine Nitrite (Negative) Urine Bilirubin (Negative) Urine Urobilinogen (<2.0) mg/dL Ur Leukocyte Esterase (Negative) Urine HCG, Qual (Not Detectd) Urine Opiates Screen Not Detected (NotDetected) Ur Oxycodone Screen Not Detected (NotDetected) Urine Methadone Screen Not Detected (NotDetected) Ur Propoxyphene Screen Not Detected (NotDetected) Ur Barbiturates Screen Not Detected (NotDetected) U Tricyclic Antidepress Not Detected (NotDetected) Ur Phencyclidine Scrn Not Detected (NotDetected) Ur Amphetamines Screen Not Detected (NotDetected) U Methamphetamines Scrn Not Detected (NotDetected) U Benzodiazepines Scrn Not Detected (NotDetected) Urine Cocaine Screen Not Detected (NotDetected) U Marijuana (THC) Screen Detected H (NotDetected) Serum Alcohol <10 mg/dL Disposition Clinical Impression: Abdominal pain, Gastroparesis Disposition: HOME SELF-CARE Condition: Stable Instructions (If sedation given, give patient instructions): Acute Nausea and Vomiting (ED) Additional Instructions: Please return to the Emergency Department if symptoms worsen or any other concerns. Is patient prescribed a controlled substance at d/c from ED?: No Referrals: Nonstaff,Physician [Primary Care Provider] - 1-2 days Time of Disposition: 16:45
[2023-05-28 15:28] LABS: ALT 19 U/L (4-34); AST 23 U/L (14-36); African American GFR (CKD) >90 (>60 ml/min/1.73 sqM); Albumin 4.2 g/dL (3.5-5.0); Alcohol <10 mg/dL; Alkaline Phosphatase 132 U/L (38-126); Amylase 32 U/L (30-110); Anion Gap 13 mmol/L; Blood Urea Nitrogen 15 mg/dL (7-17); Calcium 9.8 mg/dL (8.4-10.2); Carbon Dioxide 22 mmol/L (22-30); Chloride 101 mmol/L (98-107); Glucose 135 mg/dL (74-99); Lipase 22 U/L (23-300); Magnesium 1.9 mg/dL (1.6-2.3); Non-African American GFR(CKD) >90 (>60 ml/min/1.73 sqM); Potassium 5.1 mmol/L (3.5-5.1); Sodium 136 mmol/L (137-145); Total Bilirubin 0.3 mg/dL (0.2-1.3); Total Protein 7.7 g/dL (6.3-8.2)
[2023-05-28 15:39] LABS: Appearance,Urine Clear (Clear); Bilirubin,Urine Negative (Negative); Blood,Urine Negative (Negative); Color,Urine Yellow; Glucose,Urine (UA) Negative (Negative); Ketones,Urine Negative (Negative); Leukocyte Esterase,Urine Negative (Negative); Nitrite,Urine Negative (Negative); Protein,Urine Negative (Negative); Specific Gravity,Urine 1.017 (1.001-1.035); Urobilinogen,Urine <2.0 mg/dL (<2.0)
[2023-05-28 15:49] LABS: Amphetamine Screen,Urine Not Detected (NotDetected); Barbiturate Screen,Urine Not Detected (NotDetected); Benzodiazepines Screen,Urine Not Detected (NotDetected); Cocaine Screen,Urine Not Detected (NotDetected); Methadone Screen, Urine Not Detected (NotDetected); Opiate Screen,Urine Not Detected (NotDetected); Oxycodone Screen, Urine Not Detected (NotDetected); Phencyclidine Screen,Urine Not Detected (NotDetected); Tricyclic Antidepressant,Urine Not Detected (NotDetected); Urn Cannabinoid Scrn Detected (NotDetected)
[2023-05-28] MEDS ORDERED: HYDROmorphone 0.5 MG/0.5 ML SYRINGE IVP STA (16:21)
[2023-05-28 17:15] VITALS: BP 105/63; PULSE 72; RESP 18
== END 2023-05-28 17:15 | disposition home or self-care (01) ==
LOC: EC 13:43
DX: K31.84 Gastroparesis (principal); F31.9 Bipolar disorder, unspecified; F41.0 Panic disorder [episodic paroxysmal anxiety]; F12.90 Cannabis use, unspecified, uncomplicated; Z79.899 Other long term (current) drug therapy; Z87.891 Personal history of nicotine dependence; Z88.7 Allergy status to serum and vaccine
CPT/HCPCS: 36415; 80053; 82150; 83690; 83735; 84484; 85025; 81003; 81025; 80306; 99285; 96374; 96375 ×2; 96361; G0480; J2765; J1885; J1170; 80320